=== PATIENT | female | born 1975 ===

== ENCOUNTER → 2020-08-31 08:15 | Outpatient (BNVA) | payer MEDICAID, SELFPAY | PROVIDERS: Visit Provider Internal Medicine Endocrinology, Diabetes & Metabolism | DX: E10.21 Type 1 diabetes mellitus with diabetic nephropathy (principal); E78.5 Hyperlipidemia, unspecified; E55.9 Vitamin D deficiency, unspecified | CPT/HCPCS: 82947; 99212 ==

== ENCOUNTER 2020-08-31 08:50 | Outpatient (REF) | payer MEDICAID, SELFPAY ==
[2020-08-31 10:44] LABS: Microalbum/Creatinine Ratio Ur 6.5 ug/mg cr
== END 2020-08-31 08:51 | disposition home or self-care (01) ==
LOC: HO.10HDL 08:50
PROVIDERS: Visit Provider Internal Medicine Endocrinology, Diabetes & Metabolism
DX: E10.9 Type 1 diabetes mellitus without complications (principal)
CPT/HCPCS: 82043

== ENCOUNTER 2021-02-23 09:36 | Outpatient (REF) | payer MEDICAID, SELFPAY ==
--- NOTE | ~2021-02-23 | MM_ITS ---
EXAMINATION: MM SCREENING DIGITAL BREAST TOMOSYNTHESIS, BILATERAL CLINICAL INFORMATION: Screening. Asymptomatic. The lifetime risk of breast cancer based on the Tyrer-Cuzick Model is 7%. COMPARISON: Mammography: 01/27/2019, 01/25/2019 (baseline) TECHNIQUE: Digital breast tomosynthesis is performed in both the craniocaudal and mediolateral oblique views along with computer-aided detection (CAD). Synthesized 2D images are generated from the tomosynthesis. Additional exaggerated left CC view is provided. FINDINGS: There are scattered areas of fibroglandular density (ACR BI-RADS breast composition Category b). There are no significant masses, abnormal calcifications, or other abnormalities. There is no interval mass or architectural abnormality or abnormal calcifications. The skin contours are unremarkable. No significant changes. MM/MM tomosynthesis screening BI IMPRESSION: No mammographic evidence of malignancy. ASSESSMENT: BI-RADS 1: Negative RECOMMENDATION: Routine annual mammography screening. This patient's information was entered into a reminder system with a target due date for their next mammogram.
== END 2021-02-23 09:37 | disposition home or self-care (01) ==
LOC: HO.MAMMO 09:36
PROVIDERS: Visit Provider Family Medicine
DX: Z12.31 Encounter for screening mammogram for malignant neoplasm of breast (principal)
CPT/HCPCS: 77063; 77067

== ENCOUNTER 2021-02-27 17:09 | Emergency (ER) | payer MEDICAID, SELFPAY ==
--- NOTE | 2021-02-27 | ECG_ITS ---
Test Reason : HYPERTENTION Blood Pressure : / mmHG Vent. Rate : 093 BPM Atrial Rate : 093 BPM P-R Int : 126 ms QRS Dur : 072 ms QT Int : 378 ms P-R-T Axes : 071 042 036 degrees QTc Int : 469 ms Normal sinus rhythm Biatrial enlargement Abnormal ECG When compared to the previous EKG of No significant changes seen Referred By: Jaqueline Minor Electronically Signed By:LARRY PIRES MD
--- NOTE | ~2021-02-27 | XR_ITS ---
EXAMINATION: XR CHEST CLINICAL INFORMATION: Chest pain COMPARISON: 05/12/2018 TECHNIQUE: 2 views of the chest were obtained. FINDINGS: No significant abnormality is noted involving the heart, lungs, mediastinum, bony thorax or soft tissues. XR/XR chest 2V IMPRESSION: Unremarkable examination.
[2021-02-27 17:52] VITALS: BP 154/101; PULSE 93; RESP 16; TEMP 36.2; O2SAT 99; BMI 25.0
[2021-02-27 18:23] LABS: MANUAL DIFF FLAG NO
[2021-02-27 18:24] LABS: Basophils Absolute Auto 0.1 X10*3/uL (0.0-0.2); Basophils Percent Auto 0.7 % (0-2); Eosinophils Absolute Auto 0.2 X10*3/uL (0.0-0.4); Eosinophils Percent Auto 1.7 % (0-4); Hematocrit 37.6 % (37-47); Imm Gran Abs Auto 0.03 X10*3/uL (0.00-0.03); Imm Gran Pct Auto 0.2 % (0.0-0.4); Lymphocytes Absolute Auto 3.3 X10*3/uL (1.2-4.9); Lymphocytes Percent Auto 25.1 % (20-40); Mean Corpuscular HGB Conc 34.6 g/dl (31.0-35.0); Mean Corpuscular Hemoglobin 31.4 pg (27.0-33.0); Mean Corpuscular Volume 90.8 fL (80-98); Mean Platelet Volume 10.1 fL (9.4-12.3); Monocytes Absolute Auto 0.6 X10*3/uL (0.1-1.2); Monocytes Percent Auto 4.8 % (2-11); Neutrophils Absolute Auto 8.8 X10*3/uL (2.0-8.3); Neutrophils Percent Auto 67.5 % (45-73); Platelet Count 317 X10*3/uL (160-400); Red Blood Count 4.14 X10*6/uL (4.20-5.50); Red Cell Distribution Width 11.8 % (11.0-16.0)
[2021-02-27 18:42] LABS: Anion Gap 15 (12-20); Blood Urea Nitrogen 12 mg/dL (9-16); Calcium 9.6 mg/dL (8.4-10.2); Carbon Dioxide 21 mmol/L (22-29); Chloride 106 mmol/L (96-108); Estimated Glomerular Filt Rate > 60; Glucose Random 121 mg/dL (60-115); Potassium 3.6 mmol/L (3.3-5.1); Sodium 138 mmol/L (135-145)
[2021-02-27 18:52] LABS: Troponin-I High Sensitivity 18.5 ng/L (<3.5-17.0)
[2021-02-27 20:00] VITALS: BP 139/88; PULSE 83; RESP 16; TEMP 37; O2SAT 99
--- NOTE | 2021-02-27 20:06 | ED.GENADULT ---
HPI - General Adult General Chief complaint: General Medical Stated complaint: HIGH BP Time Seen by Provider: 02/27/21 21:20 Source: patient Mode of arrival: ambulatory Limitations: language barrier History of Present Illness HPI narrative: 45-year-old female with past medical history of type 2 diabetes, dyslipidemia, hypertension, presents with elevated blood pressure and chest pain. Patient states that she works out every day, occasionally smokes cigarettes, but does not participate in any other illicit drugs. She states the pain is substernal, does not radiate and is not associated with diaphoresis, dizziness, or weakness. Onset (ago): day(s) Location: chest Radiation: non-radiation Severity: moderate Severity scale (1-10): 5 Quality: aching Pain Consistency: constant Relieving factors: none Exacerbating factors: movement Associated symptoms: denies other symptoms Treatments prior to arrival: none Related Data Previous Rx's Medication Instructions Recorded atorvastatin 10 mg tablet 10 mg PO DAILY 90 Days #90 tab 08/31/20 cholecalciferol (vitamin D3) 50 50 mcg PO DAILY 90 Days #90 cap 08/31/20 mcg (2,000 unit) capsule lisinopril 2.5 mg tablet 2.5 mg PO DAILY 30 Days #30 tab 11/29/20 insulin glargine U-300 conc 300 8 unit SUBCUT BEDTIME 30 Days #1.5 02/05/21 unit/mL (1.5 mL) subcutaneous pen ml ibuprofen 600 mg PO Q6H #60 tab 02/27/21 Allergies Allergy/AdvReac Type Severity Reaction Status Date / Time No Known Allergies Allergy Unverified 07/19/20 16:50 [No Known Allergies*] Review of Systems Review of Systems: Constitutional: No Weight loss, No Fever, No Chills, No Night Sweats, No Fatigue, No Malaise ENT/Mouth: No Hearing loss, No Ear Pain, No Nasal Congestion, No Sinus Pain, No Hoarseness, No sore throat, No Rhinorrhea, No Swallowing Difficulty Eyes: No Eye Pain, No Swelling, No Redness, No Foreign Body, No Discharge, No Vision Changes Cardiovascular: Positive Chest Pain, no SOB, no Dyspnea on Exertion, No Orthopnea, No Edema, No Palpitations Respiratory: No Cough, No Sputum, No Wheezing, No Smoke Exposure, No Dyspnea Gastrointestinal: No Nausea, No Vomiting, No Diarrhea, No abdominal Pain, No Hematochezia, No Melena Genitourinary: No irregular bleeding, No Dysuria, No Urinary Frequency, No Hematuria, No Urinary Incontinence, No Urgency, No Flank Pain, No Urinary Flow Changes, No Hesitancy Musculoskeletal: No joint pain, No Myalgias, No Joint Swelling Skin: No Skin Lesions, No rash Neuro: No Weakness, No Numbness, No Paresthesias, No Loss of Consciousness, No Dizziness, No Headache Psych: No Anxiety/Panic, No Depression, No SI/HI/AH/VH Heme/Lymph: No Bruising, No Bleeding,No Lymphadenopathy Endocrine: No Polyuria, No Polydipsia, No Temperature Intolerance Yes all other systems are reviewed and are negative [facility] Past Medical History Medical History Dyslipidemia Ketosis-prone diabetes mellitus Microalbuminuria due to type 2 diabetes mellitus Vitamin D deficiency Surgical History Hx of section Family History Family History Father Diabetes mellitus Mother No problems noted. Social History Social History Alcohol intake: never Smoking Status: Current every day smoker Smoked in Last 30 Days: Yes Use of substances other than those prescribed or required for medical reasons: No Advance Directives: No Advance Directives Information Provided: Yes Physical Exam Vital Signs: Vital Signs: Last Vital Signs Temp 98.6 F 02/27/21 21:59 Pulse 74 02/27/21 21:59 Resp 16 02/27/21 21:59 BP 132/72 02/27/21 21:59 Pulse Ox 99 02/27/21 21:59 Body Mass Index 25.0 Appearance: Alert. Oriented X3. No acute distress. Head: Normal external exam. Normocephalic. Atraumatic. No Bird signs noted. No raccoon eyes noted Eyes: PERRLA. EOMI. Conjunctiva and sclera normal. Eyelids normal. ENT: TM's Normal. Pharynx normal. Uvula midline. Moist mucous membranes. No trismus noted. No drooling noted. No muffled voice noted. Neck: Normal inspection. Neck supple. No adenopathy. Thyroid Normal. CVS: Normal heart rate and rhythm. Heart sound normal. No murmurs noted. Pulses equal to all extremities. Respiratory: No respiratory distress. Painless inspiration. Breath sounds normal. No wheezes/rales/rhonchi noted. Chest nontender. No accessory muscle usage noted or decreased air movement noted. Abdomen: Soft and nontender. Bowel sounds normal in all 4 quadrants. No distention noted. No organomegaly noted. No visible injury noted. Back: No CVA tenderness. Full range of motion noted. Skin: Skin warm and dry. Normal skin color. Normal skin turgor. No rashes/lesions/lacerations noted. Extremities: No lower extremity edema. Extremities exhibit normal range of motion. Extremities nontender. Neuro: cranial nerves 2-12 intact, no focal neural deficits, strength 5/5 to all extremities, No motor deficit. No sensory deficit. Reflexes normal. NIH Stroke Scale Internal: Initial- Upon Arrival Level of Consciousness: Alert Level of Consciousness Questions: Answers both questions correctly Level of Consciousness Commands: Performs both tasks correctly Best Gaze: Normal Visual: No visual loss Facial Palsy: Normal Motor Arm (Right): No drift Motor Arm (Left): No drift Motor Leg (Right): No drift Motor Leg (Left): No drift Limb Ataxia: Absent Sensory: Normal Best Language: No aphasia Dysarthia: Normal Extinction and Inattention: No abnormality Score: 0 Course Course Course Narrative: 45-year-old female presents with hypertension and chest pain. Rule out ACS. Patient does lift weights on a daily basis. EKG shows biatrial enlargement, troponins elevated at 18.5 x 2, highly unlikely that this is ACS at this time. Chest x-ray is negative. Will have patient follow-up as an outpatient for echo with Cardiology, follow up with primary care physician to adjust blood pressure medications. Medical Decision Making Differential Diagnosis Differential Diagnosis: ACS, HTN, costochondritis, pericarditis Medical Records Medical records reviewed: Yes I reviewed the patient's medical records. Lab Data Lab results reviewed: Yes I reviewed the patient's lab results. Result diagrams: 02/27/21 18:19 02/27/21 18:19 Labs: Lab Results 02/27/21 02/27/21 02/27/21 Range/Units 18:19 18:19 18:19 WBC 13.0 H (4.8-10.8) X10*3/uL RBC 4.14 L (4.20-5.50) X10*6/uL Hgb 13.0 (12.0-16.0) g/dl Hct 37.6 (37-47) % MCV 90.8 (80-98) fL MCH 31.4 (27.0-33.0) pg MCHC 34.6 (31.0-35.0) g/dl RDW 11.8 (11.0-16.0) % Plt Count 317 (160-400) X10*3/uL MPV 10.1 (9.4-12.3) fL Immature Gran % (Auto) 0.2 (0.0-0.4) % Neut % (Auto) 67.5 (45-73) % Lymph % (Auto) 25.1 (20-40) % [place] % (Auto) 4.8 (2-11) % Eos % (Auto) 1.7 (0-4) % Baso % (Auto) 0.7 (0-2) % Lymph # (Auto) 3.3 (1.2-4.9) X10*3/uL [place] # (Auto) 0.6 (0.1-1.2) X10*3/uL Eos # (Auto) 0.2 (0.0-0.4) X10*3/uL Baso # (Auto) 0.1 (0.0-0.2) X10*3/uL Abs Immat Gran (auto) 0.03 (0.00-0.03) X10*3/uL Absolute Neuts (auto) 8.8 H (2.0-8.3) X10*3/uL Absolute Nucleated RBC 0.000 (0.0-0.012) X10*3/uL Nucleated RBC % (auto) 0.0 (0.0-0.2) /100WBC Hold Blue Top SEE NOTE Sodium 138 (135-145) mmol/L Potassium 3.6 (3.3-5.1) mmol/L Chloride 106 (96-108) mmol/L Carbon Dioxide 21 L (22-29) mmol/L Anion Gap 15 (12-20) BUN 12 (9-16) mg/dL Creatinine 0.81 (0.5-1.4) mg/dL Estim Creat Clear Calc 83.0 Estimated GFR > 60 Random Glucose 121 H (60-115) mg/dL Calcium 9.6 (8.4-10.2) mg/dL Troponin I High Sens (<3.5-17.0) ng/L 02/27/21 02/27/21 Range/Units 18:19 20:21 WBC (4.8-10.8) X10*3/uL RBC (4.20-5.50) X10*6/uL Hgb (12.0-16.0) g/dl Hct (37-47) % MCV (80-98) fL MCH (27.0-33.0) pg MCHC (31.0-35.0) g/dl RDW (11.0-16.0) % Plt Count (160-400) X10*3/uL MPV (9.4-12.3) fL Immature Gran % (Auto) (0.0-0.4) % Neut % (Auto) (45-73) % Lymph % (Auto) (20-40) % [place] % (Auto) (2-11) % Eos % (Auto) (0-4) % Baso % (Auto) (0-2) % Lymph # (Auto) (1.2-4.9) X10*3/uL [place] # (Auto) (0.1-1.2) X10*3/uL Eos # (Auto) (0.0-0.4) X10*3/uL Baso # (Auto) (0.0-0.2) X10*3/uL Abs Immat Gran (auto) (0.00-0.03) X10*3/uL Absolute Neuts (auto) (2.0-8.3) X10*3/uL Absolute Nucleated RBC (0.0-0.012) X10*3/uL Nucleated RBC % (auto) (0.0-0.2) /100WBC Hold Blue Top Sodium (135-145) mmol/L Potassium (3.3-5.1) mmol/L Chloride (96-108) mmol/L Carbon Dioxide (22-29) mmol/L Anion Gap (12-20) BUN (9-16) mg/dL Creatinine (0.5-1.4) mg/dL Estim Creat Clear Calc Estimated GFR Random Glucose (60-115) mg/dL Calcium (8.4-10.2) mg/dL Troponin I High Sens 18.5 H 18.5 H (<3.5-17.0) ng/L Imaging Data Chest x-ray: Attestation: I personally reviewed and interpreted this imaging study as follows: Radiologist's impression: EXAMINATION: XR CHEST CLINICAL INFORMATION: Chest pain COMPARISON: 05/12/2018 TECHNIQUE: 2 views of the chest were obtained. FINDINGS: No significant abnormality is noted involving the heart, lungs, mediastinum, bony thorax or soft tissues. XR/XR chest 2V IMPRESSION: Unremarkable examination. ECG Data Attestation: I personally reviewed and interpreted this ECG as follows: Prior ECG tracings: available for review Interpretation: Ventricular rate 93 beats per minute, TX 126, QRS 72, QT 378, QTC 469, normal sinus rhythm, biatrial enlargement, no significant changes from prior EKG Discharge Plan Discharge Clinical Impression: Chest pain, non-cardiac, Elevated troponin level not due myocardial infarction Patient Disposition: Home, Self-Care Instructions: Noncardiac Chest Pain (ED) Additional Instructions: Evaluaste para el dolor tor?cico. Las troponinas, las enzimas card?acas, son ligeramente elevadas elliot no lo suficientemente significativas mason para indicar un evento card?aco. La radiograf?a de t?rax es normal. Levy electrocardiograma muestra la ampliaci?n biatrial. Por favor, michelet un seguimiento con Cardiolog?a mason ambulatorio para ecocardiograma. Levy segunda queja fue presi?n arterial elevada. Por favor, michelet un seguimiento con levy m?dico de atenci?n primaria para manejar favian medicamentos para la presi?n arterial. Por favor tome Motrin 600 mg cada 6 horas mahnaz los pr?ximos 3 d?as. Phillip por elegir gaston departamento de emergencias para levy evaluaci?n. Por favor, michelet un seguimiento con el m?dico de atenci?n primaria seg?n sea necesario. Regrese al servicio de emergencias para cualquier s?ntoma nuevo, preocupante o que empeore. You evaluated for chest pain. Your troponins, cardiac enzymes, are slightly elevated but not significant enough to indicate a cardiac event. Your chest x-ray is normal. Your EKG shows biatrial enlargement. Please follow-up with Cardiology as an outpatient for echocardiogram. Your 2nd complaint was elevated blood pressure. Please follow-up with your primary care physician to manage your blood pressure medications. Please take Motrin 600 mg every 6 hours for the next 3 days. Thank you for choosing this emergency department for evaluation. Please follow-up with primary care physician as needed. Return to the emergency department for any new, concerning, or worsening symptoms. Prescriptions: New ibuprofen 600 mg tablet 600 mg PO Q6H Qty: 60 RF: 0 No Action lisinopril 2.5 mg tablet 2.5 mg PO DAILY 30 Days Qty: 30 RF: 6 insulin glargine U-300 conc [Toujeo SoloStar U-300 Insulin] 300 unit/mL (1.5 mL) insulin pen 8 unit subcut BEDTIME 30 Days Qty: 1.5 RF: 3 atorvastatin 10 mg tablet 10 mg PO DAILY 90 Days Qty: 90 RF: 1 cholecalciferol (vitamin D3) 50 mcg (2,000 unit) capsule 50 mcg PO DAILY 90 Days Qty: 90 RF: 1 Referrals: Fahad Greenberg MD [Physician] - 2 days (Mild elevation of troponin, biatrial enlargement on EKG, may need outpatient echocardiogram) Interventions: ED Discharge Assessment Last Done: 02/27/21 22:00 Discharge Date/Time: 02/27/21 22:01
[2021-02-27 21:07] LABS: Troponin-I High Sensitivity 18.5 ng/L (<3.5-17.0)
[2021-02-27] MEDS: Ketorolac Tromethamine 30 MG/ML VIAL IVPUSH (21:37)
[2021-02-27 21:59] VITALS: BP 132/72; PULSE 74; RESP 16; TEMP 37; O2SAT 99
== END 2021-02-27 22:01 | disposition home or self-care (01) ==
PROVIDERS: Nurse Practitioner Family; Emergency Provider Internal Medicine
DX: R07.89 Other chest pain (principal); R77.8 Other specified abnormalities of plasma proteins; I10 Essential (primary) hypertension; E78.5 Hyperlipidemia, unspecified; E11.9 Type 2 diabetes mellitus without complications; F17.200 Nicotine dependence, unspecified, uncomplicated
CPT/HCPCS: 36415; 71046; 80048; 84484; 85025; 93005; 96374; 99284; J1885

== ENCOUNTER → 2021-03-01 08:07 | Outpatient (BNVA) | payer MEDICAID, SELFPAY | PROVIDERS: Visit Provider Internal Medicine Endocrinology, Diabetes & Metabolism | DX: E11.29 Type 2 diabetes mellitus with other diabetic kidney complication (principal); R80.9 Proteinuria, unspecified; E78.5 Hyperlipidemia, unspecified; E55.9 Vitamin D deficiency, unspecified; I10 Essential (primary) hypertension; Z68.24 Body mass index [BMI] 24.0-24.9, adult; Z79.4 Long term (current) use of insulin; Z71.3 Dietary counseling and surveillance | CPT/HCPCS: 82947; 99212 ==

== ENCOUNTER 2021-03-04 10:29 | Outpatient (REF) | payer MEDICAID, SELFPAY ==
[2021-03-04 14:45] LABS: Alanine Aminotransferase 47 U/L (0-31); Albumin Level 4.3 g/dL (3.5-5.0); Alkaline Phosphatase 59 U/L (39-117); Anion Gap 13 (12-20); Aspartate Amino Transferase 31 U/L (5-31); Bilirubin Total 0.6 mg/dL (0.0-1.0); Blood Urea Nitrogen 12 mg/dL (9-16); Calcium 9.4 mg/dL (8.4-10.2); Carbon Dioxide 23 mmol/L (22-29); Chloride 105 mmol/L (96-108); Cholesterol 179 mg/dL; Estimated Glomerular Filt Rate > 60; Glucose Fasting 112 mg/dL (60-99); HDL Cholesterol 40 mg/dL; LDL Cholesterol Calculated 113 mg/dl; Potassium 3.9 mmol/L (3.3-5.1); Sodium 137 mmol/L (135-145); Total Protein 7.4 g/dL (6.5-8.0); Triglycerides 134 mg/dL
[2021-03-04 15:09] LABS: Vitamin D 25-OH Total 36.9 ng/mL (>30)
[2021-03-04 15:11] LABS: Vitamin B12 616 pg/mL (200-900)
[2021-03-05 06:02] LABS: LDL Cholesterol Direct 118 mg/dL (<100)
[2021-03-05 08:47] LABS: C Peptide 1.34 ng/mL (0.80-3.85)
[2021-03-07 16:52] LABS: Glutamic acid decarboxylase Ab <5 IU/mL (<5)
[2021-03-10 23:47] LABS: Islet Cell Antibody Screen NEGATIVE (NEGATIVE)
[2021-03-15 19:17] LABS: Insulinoma associated 2 aatb <5.4 U/mL (<5.4)
== END 2021-03-04 10:30 | disposition home or self-care (01) ==
LOC: HO.10HDL 10:29
PROVIDERS: Visit Provider Internal Medicine Endocrinology, Diabetes & Metabolism
DX: E10.9 Type 1 diabetes mellitus without complications (principal); E55.9 Vitamin D deficiency, unspecified
CPT/HCPCS: 36415; 80053; 80061; 82306; 82607; 83721; 84681; 86255; 86341

== ENCOUNTER → 2021-03-05 10:29 | Outpatient (BNVA) | payer MEDICAID, SELFPAY | PROVIDERS: PCP Family Medicine; Referring Provider Family Medicine; Visit Provider Nurse Practitioner Family | DX: R07.89 Other chest pain (principal); I10 Essential (primary) hypertension; E78.5 Hyperlipidemia, unspecified; Z82.49 Family history of ischemic heart disease and other diseases of the circulatory system | CPT/HCPCS: 99202 ==

== ENCOUNTER → 2021-03-28 09:01 | Outpatient (REF) | payer MEDICAID, SELFPAY ==
--- NOTE | ~2021-03-28 | NM_ITS ---
EXERCISE MYOCARDIAL PERFUSION STUDY INDICATION: Chest pain, assess for coronary disease and ischemia TECHNIQUE: The patient was brought in for an exercise perfusion study on 03/28/2021. Patient performed exercise as per Jose Francisco protocol and was injected 25 mCi of sestamibi once target heart rate was achieved. Images were obtained using the SPECT gamma camera interlaced with the gating device. Images were obtained in supine position. Resting perfusion study was performed on 03/29/2021. Patient was administered 25 mCi of sestamibi intravenously at rest. Images were then obtained in supine position. Total DLP 82mGy-cm. Images were processed with the software and compared side to side in short axis, horizontal long axis and vertical long axis views. FINDINGS: Raw images were reviewed. The stress perfusion study showed no significant perfusion abnormality. Both uncorrected as well as CT attenuation corrected images were reviewed. The gated study shows normal LV systolic function with calculated LVEF of 69%. LV cavity is normal in size. The gated study shows normal wall thickening and contraction of segments. Resting study shows no significant perfusion abnormality. Gating at rest reveals normal wall motion with visual ejection fraction at > 60%. The findings are consistent with no reversible or fixed perfusion abnormality. NM/NM cardiolite stress test IMPRESSION: 1. Myocardial perfusion imaging study shows normal myocardial perfusion. 2. Gated LVEF is 69% during stress; visually, resting EF normal. 3. Transient ischemic dilatation not present. EKG component of the test reported separately.
--- NOTE | 2021-03-28 09:15 | CA_ITS ---
Acquisition Time: 2021-03-28 09:13:14 Total Exercise Time: 00:09:30 Test Indications: htn, cp Medications: see chart Protocol: LYLA Max HR: 155 BPM 88% of Pred: 176 BPM Max BP: 144/080 mmHG Max Work Load: 10.9 METS Exercise stress test with exercise 9 min 30 sec of Lyla protocol, without anginal symptoms, without arrythmia, with normotensive response to exercise, without EKG changes meeting criteria for ischemia. Nuclear images pending. Test reviewed with Dr Zarate. Referred By: Bernice Rogers Overread By: BERNICE ROGERS
== END ==
LOC: HO.CARD 09:01
PROVIDERS: Visit Provider Nurse Practitioner Family
DX: R07.89 Other chest pain (principal); I10 Essential (primary) hypertension; Z82.49 Family history of ischemic heart disease and other diseases of the circulatory system
CPT/HCPCS: 78452; 93016; 93017; 93018; A9500

== ENCOUNTER → 2021-04-12 08:52 | Outpatient (REF) | payer MEDICAID, SELFPAY ==
--- NOTE | 2021-04-12 08:54 | CA_ITS ---
Transthoracic Echocardiogram Patient (Last, First, Middle): Barb Nguyen, Gender: Female Date of : 1975 Age: 45 Procedure Date: 04/12/2021 Procedure Type: Transthoracic Echocardiogram Location: OP Height: 165.1 cm Weight: 66.68 kg BSA: 1.74 m2 Heart Rate: bpm BP: 130 / 80 mmHg Lunch Counter Manager: JENNIFER Richardson MD: Bernice Rogers PASSENGER RELATIONS REPRESENTATIVE-C History Tutor: Yvan Coleman MD Symptoms: R07.89 - Other chest pain Study Quality: Fair ECG Rhythm: Sinus Conclusions: - 1. Normal LV systolic and diastolic function 2. Normal cardiac valvular Doppler 3. Possibility of PFO present 4. Normal RV systolic pressure 5. No pericardial effusion Findings Left Ventricle Normal left ventricular size, thickness, and systolic function. The visually estimated ejection fraction is between 60-65%. Regional wall motion abnormalities can not be excluded due to suboptimal endocardial definition. Diastolic function is normal for age. Right Ventricle Normal right ventricular cavity size and systolic function. Atria Both atria are normal in size. There is a mobile atrial septum noted. Patent foramen ovale detected using by color Doppler. There is evidence of a patent foramen ovale with left to right shunting. Aortic Valve The aortic valve was not well visualized. There is no aortic valve stenosis. There is no aortic valve regurgitation. Mitral Valve Normal mitral valve structure and function. There is trace mitral valve regurgitation. There is no mitral valve stenosis. Pulmonic Valve The pulmonic valve was not well visualized. Tricuspid Valve Likely normal tricuspid valve structure and function. There is trace tricuspid valve regurgitation. The right ventricular systolic pressure is normal. The right ventricular systolic pressure is 27 mmHg. There is no evidence of pulmonary hypertension. Great Vessels All visible segments of the aorta are normal in size. The pulmonary artery was not well visualized. Venous The inferior vena cava is normal in size and collapses greater than 50% with inspiration. Pericardium/Pleural There is no evidence of pericardial effusion. Prior Study Comparison No prior study available for comparison. Recommendations, Care & Conclusions Recommend contrast study to evaluate intracardiac shunting. Measurements 2D Linear Measurements IVSd: 0.87 0.6-0.9/0.6-1.0 cm LVIDd: 3.91 3.9-5.3/4.2-5.9 cm LVIDs: 2.33 2.0-3.6 cm LVPWd: 0.96 0.7-1.1 cm Ao Root: 2.52 2.1-3.5 cm LV Mass: 134.81 67-162/88-224 g LVOT Diam: 1.85 3.0+(-)1.3 cm Mitral Valve MV Pk E: 0.85 MV PK A: 0.70 MV Decel Time: 301.67 E/A: 1.21 E'Lateral: 0.11 E'Medial: 0.10 Decel [place]: 2.82 Aortic Valve AoV Pk Andrés: 1.82 AoV Mn Andrés: 1.22 AoV VTI: 0.34 AoV Pk Grad: 13.18 Aov Mn Grad: 6.52 LVOT LVOT Pk Andrés: 1.31 LVOT Mn Andrés: 0.80 LVOT VTI: 0.22 LVOT Pk Grad: 6.86 LVOT Mn Grad: 2.99 LVOT Diam: 1.85 LVOT Area: 2.70 Diastolic Function MV Pk E: 0.85 MV Pk A: 0.70 E/A: 1.21 E'Medial: 0.10 E' Laterial: 0.11 Tricuspid Valve TR Pk Andrés: 2.45 TR Pk Grad: 24.02 RA Press: 3.00 RVSP: 27.00 Great Vessels Aorta Ao Root-2D: 2.52 2.0-3.7 cm Ao Asc: 2.59 2.1-3.4 cm Ao Arch: 2.64 Updated in Other Vendor System with Status of Final Yvan Coleman MD electronically signed on 04/13/2021 4:04:48 PM with status of Final
== END ==
LOC: HO.CARD 08:52
PROVIDERS: Visit Provider Nurse Practitioner Family
DX: R07.89 Other chest pain (principal); I10 Essential (primary) hypertension; E78.5 Hyperlipidemia, unspecified; Z82.49 Family history of ischemic heart disease and other diseases of the circulatory system
CPT/HCPCS: 93306

== ENCOUNTER → 2021-05-30 07:32 | Outpatient (REF) | payer MEDICAID, SELFPAY ==
--- NOTE | 2021-05-30 07:36 | CA_ITS ---
Transthoracic Echocardiogram Patient (Last, First, Middle): Barb Nguyen, Gender: Female Date of : 1975 Age: 45 Procedure Date: 05/30/2021 Procedure Type: Transthoracic Echocardiogram Location: OP Height: 165.1 cm Weight: 64.41 kg BSA: 1.71 m2 Heart Rate: bpm Soil Fertility Specialist: KAREEN Referring MD: Bernice Rogers MOVIE THEATER MANAGER-C Symptoms: R93.1 - Abnormal findings on diagnostic imaging of heart ... Conclusions: - Possible small PFO. Findings Atria With both rest and valsalva, there are no bubbles seen in left atrium; however few seen in left ventricle. Possible small PFO. Prior Study Comparison No significant change compared to prior study dated: 04/12/2021. Updated in Other Vendor System with Status of Final Jc Zarate MD electronically signed on 06/01/2021 2:53:02 PM with status of Final
== END ==
LOC: HO.CARD 07:32
PROVIDERS: Visit Provider Nurse Practitioner Family
DX: Q21.1 Atrial septal defect (principal); R93.1 Abnormal findings on diagnostic imaging of heart and coronary circulation
CPT/HCPCS: 93308

== ENCOUNTER → 2021-08-01 07:49 | Outpatient (BNVA) | payer MEDICAID, SELFPAY | PROVIDERS: PCP Family Medicine; Visit Provider Nurse Practitioner Gerontology | DX: E11.29 Type 2 diabetes mellitus with other diabetic kidney complication (principal); R80.9 Proteinuria, unspecified; E78.5 Hyperlipidemia, unspecified; E55.9 Vitamin D deficiency, unspecified; I10 Essential (primary) hypertension | CPT/HCPCS: 82947; 83036; 99212 ==

== ENCOUNTER → 2021-09-12 09:07 | Outpatient (BNVA) | payer MEDICAID, SELFPAY | PROVIDERS: PCP Family Medicine; Referring Provider Family Medicine; Visit Provider Internal Medicine Cardiovascular Disease | DX: R07.89 Other chest pain (principal); Q21.1 Atrial septal defect | CPT/HCPCS: 99212 ==

== ENCOUNTER → 2021-11-14 08:13 | Outpatient (BNVA) | payer MEDICAID, SELFPAY | PROVIDERS: PCP Family Medicine; Visit Provider Registered Nurse Diabetes Educator ==

== ENCOUNTER → 2021-11-28 08:27 | Outpatient (BNVA) | payer MEDICAID, SELFPAY | PROVIDERS: PCP Family Medicine; Visit Provider Nurse Practitioner Gerontology | DX: E11.29 Type 2 diabetes mellitus with other diabetic kidney complication (principal); R80.9 Proteinuria, unspecified; E78.5 Hyperlipidemia, unspecified; E55.9 Vitamin D deficiency, unspecified; I10 Essential (primary) hypertension | CPT/HCPCS: 82947; 83036; 99212 ==

== ENCOUNTER 2022-05-03 19:55 | Emergency (ER) | payer MEDICAID, SELFPAY ==
--- NOTE | ~2022-05-03 | XR_ITS ---
EXAMINATION: XR CHEST CLINICAL INFORMATION: Cough. COMPARISON: 02/27/2021 TECHNIQUE: PA view of the chest FINDINGS: Lungs are clear. No consolidation, pneumothorax, or pleural effusion. Cardiac and mediastinal contours are normal. Pulmonary vasculature is unremarkable. Osseous structures are unremarkable. XR/XR chest 1V IMPRESSION: No acute cardiopulmonary findings
[2022-05-03 20:33] VITALS: BP 135/74; PULSE 99; RESP 19; TEMP 36.4; O2SAT 99; BMI 21.7
[2022-05-03 20:49] LABS: MANUAL DIFF FLAG NO
[2022-05-03 21:02] LABS: Basophils Absolute Auto 0.1 X10*3/uL (0.0-0.2); Basophils Percent Auto 0.8 % (0-2); Eosinophils Absolute Auto 0.8 X10*3/uL (0.0-0.4); Eosinophils Percent Auto 6.3 % (0-4); Hematocrit 33.7 % (37.0-47.0); Hemoglobin 11.7 g/dl (12.0-16.0); Imm Gran Abs Auto 0.03 X10*3/uL (0.00-0.03); Imm Gran Pct Auto 0.2 % (0.0-0.4); Lymphocytes Absolute Auto 4.4 X10*3/uL (1.2-4.9); Lymphocytes Percent Auto 34.2 % (20-40); Mean Corpuscular HGB Conc 34.7 g/dl (31.0-35.0); Mean Corpuscular Hemoglobin 31.4 pg (27.0-33.0); Mean Corpuscular Volume 90.3 fL (80.0-98.0); Mean Platelet Volume 10.7 fL (9.4-12.3); Monocytes Absolute Auto 0.8 X10*3/uL (0.1-1.2); Monocytes Percent Auto 5.9 % (2-11); Neutrophils Absolute Auto 6.7 x10*3/uL (2.0-8.3); Neutrophils Percent Auto 52.6 % (45-73); Platelet Count 265 X10*3/uL (160-400); Red Blood Count 3.73 X10*6/uL (4.20-5.50); Red Cell Distribution Width 11.9 % (11.0-16.0); White Blood Count 12.8 X10*3/uL (4.8-10.8)
[2022-05-03 21:16] LABS: COVID-19 Test Negative (Negative); IDNOW Serial# 16C4AD1C; Influenza A Negative (Negative); Influenza B2 Negative (Negative)
[2022-05-03 21:18] LABS: Alanine Aminotransferase 14 U/L (0-31); Alkaline Phosphatase 79 U/L (39-117); Anion Gap 12 (12-20); Aspartate Amino Transferase 12 U/L (5-31); Bilirubin Total 0.2 mg/dL (0.0-1.0); Blood Urea Nitrogen 19 mg/dL (9-16); Calcium 8.7 mg/dL (8.4-10.2); Carbon Dioxide 20 mmol/L (22-29); Chloride 108 mmol/L (96-108); Creatinine Clr Calc Pharmacy 61.5; Estimated Glomerular Filt Rate 55; Glucose Random 178 mg/dL (60-115); Potassium 3.8 mmol/L (3.3-5.1); Sodium 136 mmol/L (135-145); Total Protein 6.9 g/dL (6.5-8.0)
--- NOTE | 2022-05-04 01:39 | ED.URI ---
HPI - URI/Sore Throat General Chief Complaint: Upper Respiratory Symptoms Stated Complaint: Hard time breathing Time Seen by Provider: 05/04/22 01:37 Source: patient Mode of arrival: ambulatory Limitations: no limitations History of Present Illness HPI Narrative: 46 years old female came in for evaluation of shortness of breath. Patient with known history of asthma just quit smoking 2 months ago, patient was seen by her PCP last week for dry cough and difficulty breathing patient was diagnosed with bronchitis sent home on Z-Bernardo. Patient do not feel significant improvement despite using the antibiotic. Patient declined any recent travel, no lower extremity swelling or tenderness. Related Data Home Medications Medication Instructions Recorded Confirmed lisinopril 10 mg tablet 30 mg PO DAILY 09/12/21 09/12/21 mirtazapine 15 mg tablet 15 mg PO BEDTIME 09/12/21 09/12/21 vitamin B comp and C no.3 15 mg-10 1 cap PO DAILY 09/12/21 09/12/21 mg-50 mg-5 mg-300 mg capsule (B Complex Plus Vitamin C) Previous Rx's Medication Instructions Recorded ibuprofen 600 mg tablet 600 mg PO Q6H #60 tabs 02/27/21 cholecalciferol (vitamin D3) 50 50 mcg PO DAILY 90 days #90 caps 03/01/21 mcg (2,000 unit) capsule atorvastatin 20 mg tablet 20 mg PO BEDTIME 90 days #90 tabs 03/05/21 blood sugar diagnostic (FreeStyle #100 ea 07/11/21 Lite Strips) blood-glucose meter (FreeStyle #1 ea 07/11/21 Maryneal Lite) lancets 28 gauge (FreeStyle #100 ea 07/11/21 Lancets) blood-glucose meter (FreeStyle #1 ea 08/01/21 Maryneal) insulin glargine U-300 conc 300 6 unit (0.02 mL) subcut BEDTIME 30 11/28/21 unit/mL (1.5 mL) subcutaneous pen days #1.5 mL (Toujeo SoloStar U-300 Insulin) dulaglutide 0.75 mg/0.5 mL 0.75 mg (0.5 mL) subcut QWEEK 30 03/03/22 subcutaneous pen injector days #2.5 mL (Trulicity) albuterol sulfate 90 mcg/actuation 1 inh inhalation QID PRN shortness 05/04/22 aerosol inhaler of breath or wheezing #8.5 grams prednisone 20 mg tablet 20 mg PO BID #10 tabs 05/04/22 Allergies Allergy/AdvReac Type Severity Reaction Status Date / Time No Known Allergies Allergy Verified 05/03/22 20:36 [No Known Allergies*] Review of Systems Review of Systems: All other systems are reviewed and are negative Constitutional: Reports as per HPI and Reports no additional constitutional complaints Eyes: Reports as per HPI and Reports no additional eye complaints Reports system reviewed and no additional complaints, except as documented Cardiovascular: Reports as per HPI and Reports no additional cardiovascular complaints Respiratory: Reports as per HPI and Reports no additional respiratory complaints Gastrointestinal: Reports as per HPI and Reports no additional gastrointestinal complaints Genitourinary: Reports no additional female genitourinary complaints Musculoskeletal: Reports no additional musculoskeletal complaints Skin/Breast: Reports system reviewed and no additional complaints, except as docu Psychiatric: Reports no additional psychiatric complaints Endocrine: Reports no additional endocrine complaints Hematologic/Lymphatic: Reports no additional hematologic/lymphatic complaints Allergic/Immunologic: Reports no additional allergic/immunologic complaints Reports system reviewed and no additional complaints, except as documented and Reports Abnormal speech present [facility] Past Medical History Medical History Dyslipidemia Family history of early CAD Hypertension Ketosis-prone diabetes mellitus Microalbuminuria due to type 2 diabetes mellitus Vitamin D deficiency Surgical History Hx of section Family History Family History Father Diabetes mellitus Mother No problems noted. Sister Myocardial infarction Social History Social History Household Members: Children Household Members Other:: son and daughter Alcohol intake: never Patient Tobacco Use Status: Current someday Tobacco user Advance Directives: No Advance Directives Information Provided: No Physical Exam Vital Signs: Vital Signs: Last Vital Signs Temp 97.6 F 05/03/22 20:33 Pulse 99 05/03/22 20:33 Resp 19 05/03/22 20:33 BP 135/74 05/03/22 20:33 Pulse Ox 99 05/03/22 20:33 O2 Del Method 05/03/22 20:33 BMI result Body Mass Index 21.7 Vital signs have been reviewed as appeared to be correct. Blood pressure normal. Heart rate normal. Respiration rate normal. Temperature normal. Oxygen saturation normal. Appearance: Alert. Oriented X3. No acute distress. Head: Normal external exam. Normocephalic. Atraumatic. No Bird signs noted. No raccoon eyes noted Eyes: PERRLA. EOMI. Conjunctiva and sclera normal. Eyelids normal. ENT: TM's Normal. Pharynx normal. Uvula midline. Moist mucous membranes. No trismus noted. No drooling noted. No muffled voice noted. Neck: Normal inspection. Neck supple. FROM. No adenopathy. Thyroid Normal. No meningeal signs. No neck mass noted. CVS: Normal heart rate and rhythm. Heart sound normal. No murmurs noted. Pulses normal throughout. Respiratory: No respiratory distress. Painless inspiration. Breath sounds normal. Bilateral mild diffuse expiratory wheezing. Chest nontender. No accessory muscle usage noted or decreased air movement noted. Abdomen: Soft and nontender. Bowel sounds normal in all 4 quadrants. No distention noted. No organomegaly noted. No visible injury noted. Back: No CVA tenderness. Full range of motion noted. Skin: Skin warm and dry. Normal skin color. Normal skin turgor. No rashes/lesions/lacerations noted. Extremities: No lower extremity edema. Extremities exhibit normal range of motion. Extremities nontender. Neuro: Oriented X 3. Cranial nerve exam: II-XII are grossly intact No motor deficit. No sensory deficit. Reflexes normal. Course Course Course Narrative: Acute bronchitis, will start the patient on bronchodilator and prednisone and to finish the Z-Bernardo prescribed by her PCP. MDM - URI/Sore Throat Lab Data Attestation: I reviewed the patient's lab results. Result diagrams: 05/03/22 20:41 05/03/22 20:41 Labs: Lab Results 05/03/22 05/03/22 05/03/22 Range/Units 20:41 20:41 20:41 WBC 12.8 H (4.8-10.8) X10*3/uL RBC 3.73 L (4.20-5.50) X10*6/uL Hgb 11.7 L (12.0-16.0) g/dl Hct 33.7 L (37.0-47.0) % MCV 90.3 (80.0-98.0) fL MCH 31.4 (27.0-33.0) pg MCHC 34.7 (31.0-35.0) g/dl RDW 11.9 (11.0-16.0) % Plt Count 265 (160-400) X10*3/uL MPV 10.7 (9.4-12.3) fL Immature Gran % (Auto) 0.2 (0.0-0.4) % Neut % (Auto) 52.6 (45-73) % Lymph % (Auto) 34.2 (20-40) % [place] % (Auto) 5.9 (2-11) % Eos % (Auto) 6.3 H (0-4) % Baso % (Auto) 0.8 (0-2) % Lymph # (Auto) 4.4 (1.2-4.9) X10*3/uL [place] # (Auto) 0.8 (0.1-1.2) X10*3/uL Eos # (Auto) 0.8 H (0.0-0.4) X10*3/uL Baso # (Auto) 0.1 (0.0-0.2) X10*3/uL Abs Immat Gran (auto) 0.03 (0.00-0.03) X10*3/uL Absolute Neuts (auto) 6.7 (2.0-8.3) x10*3/uL Absolute Nucleated RBC 0.000 (0.0-0.012) X10*3/uL Nucleated RBC % (auto) 0.0 (0.0-0.2) /100WBC Sodium 136 (135-145) mmol/L Potassium 3.8 (3.3-5.1) mmol/L Chloride 108 (96-108) mmol/L Carbon Dioxide 20 L (22-29) mmol/L Anion Gap 12 (12-20) BUN 19 H (9-16) mg/dL Creatinine 1.08 (0.5-1.4) mg/dL Estim Creat Clear Calc 61.5 Estimated GFR 55 Random Glucose 178 H (60-115) mg/dL Calcium 8.7 D (8.4-10.2) mg/dL Total Bilirubin 0.2 (0.0-1.0) mg/dL AST 12 D (5-31) U/L ALT 14 (0-31) U/L Alkaline Phosphatase 79 D (39-117) U/L Total Protein 6.9 (6.5-8.0) g/dL Albumin 4.0 (3.5-5.0) g/dL COVID-19 (BELEM) (Negative) COVID-19 Clin Com Influenza Type A (JARROD) Negative (Negative) Influenza Type B (JARROD) Negative (Negative) Influenza A & B Note See Note 05/03/22 Range/Units 20:41 WBC (4.8-10.8) X10*3/uL RBC (4.20-5.50) X10*6/uL Hgb (12.0-16.0) g/dl Hct (37.0-47.0) % MCV (80.0-98.0) fL MCH (27.0-33.0) pg MCHC (31.0-35.0) g/dl RDW (11.0-16.0) % Plt Count (160-400) X10*3/uL MPV (9.4-12.3) fL Immature Gran % (Auto) (0.0-0.4) % Neut % (Auto) (45-73) % Lymph % (Auto) (20-40) % [place] % (Auto) (2-11) % Eos % (Auto) (0-4) % Baso % (Auto) (0-2) % Lymph # (Auto) (1.2-4.9) X10*3/uL [place] # (Auto) (0.1-1.2) X10*3/uL Eos # (Auto) (0.0-0.4) X10*3/uL Baso # (Auto) (0.0-0.2) X10*3/uL Abs Immat Gran (auto) (0.00-0.03) X10*3/uL Absolute Neuts (auto) (2.0-8.3) x10*3/uL Absolute Nucleated RBC (0.0-0.012) X10*3/uL Nucleated RBC % (auto) (0.0-0.2) /100WBC Sodium (135-145) mmol/L Potassium (3.3-5.1) mmol/L Chloride (96-108) mmol/L Carbon Dioxide (22-29) mmol/L Anion Gap (12-20) BUN (9-16) mg/dL Creatinine (0.5-1.4) mg/dL Estim Creat Clear Calc Estimated GFR Random Glucose (60-115) mg/dL Calcium (8.4-10.2) mg/dL Total Bilirubin (0.0-1.0) mg/dL AST (5-31) U/L ALT (0-31) U/L Alkaline Phosphatase (39-117) U/L Total Protein (6.5-8.0) g/dL Albumin (3.5-5.0) g/dL COVID-19 (BELEM) Negative (Negative) COVID-19 Clin Com See Note Influenza Type A (JARROD) (Negative) Influenza Type B (JARROD) (Negative) Influenza A & B Note Imaging Data Chest x-ray: Attestation: I personally reviewed and interpreted this imaging study as follows: Radiologist's impression: No acute cardiopulmonary findings. Discharge Plan Discharge Clinical Impression: Bronchitis Patient Disposition: Home, Self-Care Instructions: Acute Bronchitis (ED) Prescriptions: New albuterol sulfate 90 mcg/actuation HFA aerosol inhaler 1 inh inhalation QID PRN (Reason: shortness of breath or wheezing) Qty: 8.5 0RF prednisone 20 mg tablet 20 mg PO BID Qty: 10 0RF No Action atorvastatin 20 mg tablet 20 mg PO BEDTIME 90 Days Qty: 90 3RF (DME) blood-glucose meter [FreeStyle Maryneal Lite] Kit See Rx Instructions .ROUTE .MEDSUPPLY Qty: 1 0RF Rx Instructions: 3x/day (DME) FreeStyle Lite Strips Strip See Rx Instructions .ROUTE .MEDSUPPLY Qty: 100 11RF Rx Instructions: As directed three times a day (DME) lancets [FreeStyle Lancets] 28 gauge misc See Rx Instructions .ROUTE .MEDSUPPLY Qty: 100 11RF Rx Instructions: Three times a day Trulicity 0.75 mg/0.5 mL pen injector 0.75 mg subcut QWEEK 30 Days Qty: 2.5 4RF ibuprofen 600 mg tablet 600 mg PO Q6H Qty: 60 0RF (DME) blood-glucose meter [FreeStyle Maryneal] Kit See Rx Instructions .Route Qty: 1 0RF Rx Instructions: To test bg 3 times a day lisinopril 10 mg tablet 30 mg PO DAILY mirtazapine 15 mg tablet 15 mg PO BEDTIME B Complex Plus Vitamin C 24-92-48-5-300 mg capsule 1 cap PO DAILY Rx Instructions: give with food (meal/snack) cholecalciferol (vitamin D3) 50 mcg (2,000 unit) capsule 50 mcg PO DAILY 90 Days Qty: 90 1RF Toujeo SoloStar U-300 Insulin 300 unit/mL (1.5 mL) insulin pen 6 unit subcut BEDTIME 30 Days Qty: 1.5 7RF Referrals: Danna Dinh MD [Primary Care Provider] - Stand Alone Forms: Work/School Release
[2022-05-04 02:20] VITALS: O2SAT 98
== END 2022-05-04 02:21 | disposition home or self-care (01) ==
PROVIDERS: Emergency Provider Emergency Medicine; PCP Family Medicine
DX: J40 Bronchitis, not specified as acute or chronic (principal); R06.02 Shortness of breath; F17.200 Nicotine dependence, unspecified, uncomplicated; Z20.822 Contact with and (suspected) exposure to COVID-19; Z79.899 Other long term (current) drug therapy; Z71.6 Tobacco abuse counseling
CPT/HCPCS: 71045; 80053; 85025; 87502; 87635; 99283; 99284

== ENCOUNTER → 2022-09-12 08:14 | Outpatient (BNVA) | payer MEDICAID, SELFPAY | PROVIDERS: PCP Family Medicine; Referring Provider Family Medicine; Visit Provider Internal Medicine Cardiovascular Disease | DX: Q21.12 Patent foramen ovale (principal); I10 Essential (primary) hypertension | CPT/HCPCS: 93005; 99212 ==

== ENCOUNTER 2023-01-10 19:29 | Emergency (ER) | payer MEDICAID, SELFPAY ==
[2023-01-10 19:58] VITALS: BP 139/87; PULSE 82; RESP 18; TEMP 36; O2SAT 98; BMI 22.4
--- NOTE | 2023-01-10 20:03 | ED.GENADULT ---
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 Patient reports that she is doing a new exercise 3 days ago. She reports since that time she has had tingling and discomfort in my very lower abdomen. She states it is not quite in her pelvis. She states the discomfort is quite mild, 3/10 but she is concerned because she does not know what it is. She denies any associated nausea vomiting, diarrhea or constipation. Denies any burning with urination, frequent urination, abnormal vaginal bleeding or discharge. <John Paul Ann - Last Filed: 01/10/23 21:45> Related Data Home medications: Home Medications Medication Instructions Recorded Confirmed lisinopril 10 mg tablet 30 mg PO DAILY 09/12/21 09/12/22 mirtazapine 15 mg tablet 15 mg PO BEDTIME 09/12/21 09/12/22 vitamin B comp and C no.3 15 mg-10 1 cap PO DAILY 09/12/21 09/12/22 mg-50 mg-5 mg-300 mg capsule (B Complex Plus Vitamin C) rosuvastatin 10 mg tablet 10 mg PO DAILY 09/12/22 09/12/22 Previous Rx's Medication Instructions Recorded ibuprofen 600 mg tablet 600 mg PO Q6H #60 tabs 02/27/21 cholecalciferol (vitamin D3) 50 50 mcg PO DAILY 90 days #90 caps 03/01/21 mcg (2,000 unit) capsule blood sugar diagnostic (FreeStyle #100 ea 07/11/21 Lite Strips) blood-glucose meter (FreeStyle #1 ea 07/11/21 [place] Lite kit) lancets 28 gauge (FreeStyle #100 ea 07/11/21 Lancets) blood-glucose meter (FreeStyle #1 ea 08/01/21 [place] kit) insulin glargine U-300 conc 300 6 unit (0.02 mL) subcut BEDTIME 30 11/28/21 unit/mL (1.5 mL) subcutaneous pen days #1.5 mL (Toujeo SoloStar U-300 Insulin) albuterol sulfate 90 mcg/actuation 1 inh inhalation QID PRN shortness 05/04/22 aerosol inhaler of breath or wheezing #8.5 grams dulaglutide 0.75 mg/0.5 mL 0.75 mg (0.5 mL) subcut QWEEK 30 07/16/22 subcutaneous pen injector days #2.5 mL (Trulicity) cyclobenzaprine 10 mg tablet 10 mg PO TID PRN muscle spasms #9 01/10/23 tabs <RANDI Núñez - Last Filed: 01/10/23 20:04> Allergies/adverse reactions: Allergies Allergy/AdvReac Type Severity Reaction Status Date / Time No Known Allergies Allergy Verified 01/10/23 19:58 [No Known Allergies*] <RANDI Núñez - Last Filed: 01/10/23 20:04> Review of Systems Constitutional: Constitutional: Reports as per HPI, Denies chills, Denies fatigue, Denies fever(s) and Denies headache(s) <John Paul Ann - Last Filed: 01/10/23 21:45> ENT: Denies headache(s) <John Paul Ann - Last Filed: 01/10/23 21:45> Cardiovascular: Cardiovascular: Denies chest pain and Denies dyspnea <John Paul Ann - Last Filed: 01/10/23 21:45> Respiratory: Respiratory: Denies cough and Denies dyspnea <John Paul Ann - Last Filed: 01/10/23 21:45> Gastrointestinal: Gastrointestinal: Reports abdominal pain, Denies constipation and Denies vomiting <John Paul Ann - Last Filed: 01/10/23 21:45> Genitourinary: Genitourinary: Denies dysuria <John Paul Ann - Last Filed: 01/10/23 21:45> Neurologic: Denies headache(s) and Denies focal weakness <John Paul Ann - Last Filed: 01/10/23 21:45> Endocrine: Endocrine: Denies fatigue <John Paul Ann - Last Filed: 01/10/23 21:45> [facility] Past Medical History Medical History: Medical History (Updated 01/10/23 @ 21:42 by John Paul Ann) Dyslipidemia Family history of early CAD Hypertension Ketosis-prone diabetes mellitus Microalbuminuria due to type 2 diabetes mellitus Vitamin D deficiency <RANDI Núñez - Last Filed: 01/10/23 20:04> Surgical History: Surgical History Hx of section <RANDI Núñez - Last Filed: 01/10/23 20:04> Family History Family History: Family History Father Diabetes mellitus Mother No problems noted. Sister Myocardial infarction <RANDI Núñez - Last Filed: 01/10/23 20:04> Social History Social History: Social History Household Members: Children Household Members Other:: son and daughter Alcohol intake: never Patient Tobacco Use Status: Current someday Tobacco user Advance Directives: No Advance Directives Information Provided: No <RANDI Núñez - Last Filed: 01/10/23 20:04> Physical Exam ED Vital Signs: Vital Signs - 24 hr 01/10/23 19:58 Temperature 96.8 F Pulse Rate 82 Respiratory Rate 18 Blood Pressure 139/87 Pulse Oximetry 98 Oxygen Delivery Method Room Air BMI result Body Mass Index 22.4 <RANDI Núñez - Last Filed: 01/10/23 20:04> Vital Signs - 24 hr 01/10/23 19:58 Temperature 96.8 F Pulse Rate 82 Respiratory Rate 18 Blood Pressure 139/87 Pulse Oximetry 98 Oxygen Delivery Method Room Air BMI result Body Mass Index 22.4 < Last Filed: 01/10/23 21:45> Const General: healthy appearing, comfortable, no acute distress, alert and awake < Last Filed: 01/10/23 21:45> Nutritional Appearance: well nourished < Last Filed: 01/10/23 21:45> Orientation/consciousness: patient oriented x3 < Last Filed: 01/10/23 21:45> HENMT Head: Yes normocephalic and Yes atraumatic < Last Filed: 01/10/23 21:45> Throat: Yes posterior oropharynx normal < Last Filed: 01/10/23 21:45> Eyes Eyelids: Yes eyelids normal < Last Filed: 01/10/23 21:45> Conjunctivae: conjunctivae normal < Last Filed: 01/10/23 21:45> Sclerae: sclerae normal < Last Filed: 01/10/23 21:45> Corneas: corneas normal < Last Filed: 01/10/23 21:45> Pupils: Equal, round and reactive pupils present < Last Filed: 01/10/23 21:45> EOM: EOMs intact bilaterally < Last Filed: 01/10/23 21:45> Neck Neck: Yes full ROM < Last Filed: 01/10/23 21:45> Resp Effort & Inspection: normal respiratory effort, able to speak in complete sentences, no audible wheezes and not labored < Last Filed: 01/10/23 21:45> Auscultation: clear to auscultation bilaterally < Last Filed: 01/10/23 21:45> Cardio Rate: regular rate < Last Filed: 01/10/23 21:45> Rhythm: regular rhythm < Last Filed: 01/10/23 21:45> GI Inspection: No distended <John Paul Ann Last Filed: 01/10/23 21:45> Palpation (GI): Soft to palpation, not firm, nontender, no guarding and not rigid <John Paulemmett Woods Last Filed: 01/10/23 21:45> Auscultation: normoactive bowel sounds <John Paul OShakir - Last Filed: 01/10/23 21:45> Skin General skin exam: no rashes or lesions noted and elasticity normal <John Paul OShakir - Last Filed: 01/10/23 21:45> Neuro General: patient oriented x3 <John Paul Raudel Last Filed: 01/10/23 21:45> Cranial nerves: Yes CN's II-XII intact bilaterally, Yes Equal, round and reactive pupils present and Yes Bilaterally intact EOM present <John Paul [place] - Last Filed: 01/10/23 21:45> Cognition (Neuro): normal cognition <John Paulemmett Woods Last Filed: 01/10/23 21:45> Extrem Other: Moving all extremities well without any obvious deformities <John Paulemmett Woods Last Filed: 01/10/23 21:45> Course Course Course Narrative: RME performed by Zarina Breaux PA-C. Patient is a 47 year old female presenting to the emergency department with abdominal pain. Patient states that she was doing abdominal exercises and the area started to hurt but now it has been 2 days she is having very low abdominal tingling. Labs and UA ordered. Patient placed back in the waiting room pending results and room availability. <RANDI Núñez Last Filed: 01/10/23 20:04> Medical Decision Making Medical Decision Making MDM Narrative: 47 and coronal intravenous push interval presents for evaluation of lower abdominal discomfort started after exercising a few days ago. She states this was the 1st time she tried this exercise. Her abdomen is soft, nondistended, nontender without guarding. No palpable abnormalities. Patient's labs are reviewed and without significant abnormalities, UA is unremarkable, no signs of- care the patient is not . the patient has no back pain at all, no lower extremity weakness, numbness or tingling to suggest cauda equina syndrome. I discussed all this finding with the patient I feel her symptoms are likely related to working out and she simply rest for a couple of more days. I encouraged the patient to Internal week if her symptoms have not resolved for some imaging. Patient is comfortable this plan but did request a muscle relaxer to help the discomfort. I will prescribe her a short course of Flexeril <John Paul Ann - Last Filed: 01/10/23 21:45> Differential Diagnosis Abdominal wall pain Abdominal wall strain UTI Cystitis colitis constipation Menopause <John Paul Marissa - Last Filed: 01/10/23 21:45> Lab Data MDM Lab Attestation statement: I reviewed the patient's lab results. <John Paul Ann - Last Filed: 01/10/23 21:45> Result Diagrams: 01/10/23 03:39 01/10/23 20:22 <RANDI Núñez - Last Filed: 01/10/23 20:04> Labs: Lab Results 01/10/23 01/10/23 01/10/23 Range/Units 03:39 20:22 20:22 WBC 13.6 H (4.8-10.8) X10*3/uL RBC 4.30 (4.20-5.50) X10*6/uL Hgb 13.7 (12.0-16.0) g/dl Hct 39.0 (37.0-47.0) % MCV 90.7 (80.0-98.0) fL MCH 31.9 (27.0-33.0) pg MCHC 35.1 H (31.0-35.0) g/dl RDW 11.7 (11.0-16.0) % Plt Count 310 (160-400) X10*3/uL MPV 11.6 (9.4-12.3) fL Immature Gran % (Auto) 0.4 (0.0-0.4) % Neut % (Auto) 70.3 (45-73) % Lymph % (Auto) 22.9 (20-40) % [place] % (Auto) 4.2 (2-11) % Eos % (Auto) 1.3 (0-4) % Baso % (Auto) 0.9 (0-2) % Lymph # (Auto) 3.1 (1.2-4.9) X10*3/uL [place] # (Auto) 0.6 (0.1-1.2) X10*3/uL Eos # (Auto) 0.2 (0.0-0.4) X10*3/uL Baso # (Auto) 0.1 (0.0-0.2) X10*3/uL Abs Immat Gran (auto) 0.05 H (0.00-0.03) X10*3/uL Absolute Neuts (auto) 9.6 H (2.0-8.3) x10*3/uL Absolute Nucleated RBC 0.000 (0.0-0.012) X10*3/uL Nucleated RBC % (auto) 0.0 (0.0-0.2) /100WBC Sodium 136 (135-145) mmol/L Potassium 3.9 (3.3-5.1) mmol/L Chloride 105 (96-108) mmol/L Carbon Dioxide 22 (22-29) mmol/L Anion Gap 13 (12-20) BUN 13 (9-16) mg/dL Creatinine 0.87 (0.5-1.4) mg/dL Estim Creat Clear Calc 72.7 Estimated GFR > 60 Random Glucose 134 H (60-115) mg/dL Calcium 9.9 D (8.4-10.2) mg/dL Magnesium 1.9 (1.6-2.6) mg/dL Total Bilirubin 0.4 (0.0-1.0) mg/dL AST 14 (5-31) U/L ALT 17 (0-31) U/L Alkaline Phosphatase 85 (39-117) U/L Total Protein 7.7 (6.5-8.0) g/dL Albumin 4.7 (3.5-5.0) g/dL Urine Color Yellow Urine Appearance Clear Urine pH 6.0 (5.0-9.0) Ur Specific [place] <= 1.005 (1.005-1.025) Urine Protein Negative (Neg-Trace) mg/dL Urine Glucose (UA) Negative (Negative) mg/dL Urine Ketones Negative (Negative) mg/dL Urine Blood Negative (Negative) Urine Nitrite Negative (Negative) Ur Leukocyte Esterase Negative (Negative) Urine Test (NEGATIVE) 01/10/23 Range/Units 20:22 WBC (4.8-10.8) X10*3/uL RBC (4.20-5.50) X10*6/uL Hgb (12.0-16.0) g/dl Hct (37.0-47.0) % MCV (80.0-98.0) fL MCH (27.0-33.0) pg MCHC (31.0-35.0) g/dl RDW (11.0-16.0) % Plt Count (160-400) X10*3/uL MPV (9.4-12.3) fL Immature Gran % (Auto) (0.0-0.4) % Neut % (Auto) (45-73) % Lymph % (Auto) (20-40) % [place] % (Auto) (2-11) % Eos % (Auto) (0-4) % Baso % (Auto) (0-2) % Lymph # (Auto) (1.2-4.9) X10*3/uL [place] # (Auto) (0.1-1.2) X10*3/uL Eos # (Auto) (0.0-0.4) X10*3/uL Baso # (Auto) (0.0-0.2) X10*3/uL Abs Immat Gran (auto) (0.00-0.03) X10*3/uL Absolute Neuts (auto) (2.0-8.3) x10*3/uL Absolute Nucleated RBC (0.0-0.012) X10*3/uL Nucleated RBC % (auto) (0.0-0.2) /100WBC Sodium (135-145) mmol/L Potassium (3.3-5.1) mmol/L Chloride (96-108) mmol/L Carbon Dioxide (22-29) mmol/L Anion Gap (12-20) BUN (9-16) mg/dL Creatinine (0.5-1.4) mg/dL Estim Creat Clear Calc Estimated GFR Random Glucose (60-115) mg/dL Calcium (8.4-10.2) mg/dL Magnesium (1.6-2.6) mg/dL Total Bilirubin (0.0-1.0) mg/dL AST (5-31) U/L ALT (0-31) U/L Alkaline Phosphatase (39-117) U/L Total Protein (6.5-8.0) g/dL Albumin (3.5-5.0) g/dL Urine Color Urine Appearance Urine pH (5.0-9.0) Ur Specific [place] (1.005-1.025) Urine Protein (Neg-Trace) mg/dL Urine Glucose (UA) (Negative) mg/dL Urine Ketones (Negative) mg/dL Urine Blood (Negative) Urine Nitrite (Negative) Ur Leukocyte Esterase (Negative) Urine Test NEGATIVE (NEGATIVE) <RANDI Núñez - Last Filed: 01/10/23 20:04> Lab Results 01/10/23 01/10/23 01/10/23 Range/Units 03:39 20:22 20:22 WBC 13.6 H (4.8-10.8) X10*3/uL RBC 4.30 (4.20-5.50) X10*6/uL Hgb 13.7 (12.0-16.0) g/dl Hct 39.0 (37.0-47.0) % MCV 90.7 (80.0-98.0) fL MCH 31.9 (27.0-33.0) pg MCHC 35.1 H (31.0-35.0) g/dl RDW 11.7 (11.0-16.0) % Plt Count 310 (160-400) X10*3/uL MPV 11.6 (9.4-12.3) fL Immature Gran % (Auto) 0.4 (0.0-0.4) % Neut % (Auto) 70.3 (45-73) % Lymph % (Auto) 22.9 (20-40) % [place] % (Auto) 4.2 (2-11) % Eos % (Auto) 1.3 (0-4) % Baso % (Auto) 0.9 (0-2) % Lymph # (Auto) 3.1 (1.2-4.9) X10*3/uL [place] # (Auto) 0.6 (0.1-1.2) X10*3/uL Eos # (Auto) 0.2 (0.0-0.4) X10*3/uL Baso # (Auto) 0.1 (0.0-0.2) X10*3/uL Abs Immat Gran (auto) 0.05 H (0.00-0.03) X10*3/uL Absolute Neuts (auto) 9.6 H (2.0-8.3) x10*3/uL Absolute Nucleated RBC 0.000 (0.0-0.012) X10*3/uL Nucleated RBC % (auto) 0.0 (0.0-0.2) /100WBC Sodium 136 (135-145) mmol/L Potassium 3.9 (3.3-5.1) mmol/L Chloride 105 (96-108) mmol/L Carbon Dioxide 22 (22-29) mmol/L Anion Gap 13 (12-20) BUN 13 (9-16) mg/dL Creatinine 0.87 (0.5-1.4) mg/dL Estim Creat Clear Calc 72.7 Estimated GFR > 60 Random Glucose 134 H (60-115) mg/dL Calcium 9.9 D (8.4-10.2) mg/dL Magnesium 1.9 (1.6-2.6) mg/dL Total Bilirubin 0.4 (0.0-1.0) mg/dL AST 14 (5-31) U/L ALT 17 (0-31) U/L Alkaline Phosphatase 85 (39-117) U/L Total Protein 7.7 (6.5-8.0) g/dL Albumin 4.7 (3.5-5.0) g/dL Urine Color Yellow Urine Appearance Clear Urine pH 6.0 (5.0-9.0) Ur Specific [place] <= 1.005 (1.005-1.025) Urine Protein Negative (Neg-Trace) mg/dL Urine Glucose (UA) Negative (Negative) mg/dL Urine Ketones Negative (Negative) mg/dL Urine Blood Negative (Negative) Urine Nitrite Negative (Negative) Ur Leukocyte Esterase Negative (Negative) Urine Test (NEGATIVE) 01/10/23 Range/Units 20:22 WBC (4.8-10.8) X10*3/uL RBC (4.20-5.50) X10*6/uL Hgb (12.0-16.0) g/dl Hct (37.0-47.0) % MCV (80.0-98.0) fL MCH (27.0-33.0) pg MCHC (31.0-35.0) g/dl RDW (11.0-16.0) % Plt Count (160-400) X10*3/uL MPV (9.4-12.3) fL Immature Gran % (Auto) (0.0-0.4) % Neut % (Auto) (45-73) % Lymph % (Auto) (20-40) % [place] % (Auto) (2-11) % Eos % (Auto) (0-4) % Baso % (Auto) (0-2) % Lymph # (Auto) (1.2-4.9) X10*3/uL [place] # (Auto) (0.1-1.2) X10*3/uL Eos # (Auto) (0.0-0.4) X10*3/uL Baso # (Auto) (0.0-0.2) X10*3/uL Abs Immat Gran (auto) (0.00-0.03) X10*3/uL Absolute Neuts (auto) (2.0-8.3) x10*3/uL Absolute Nucleated RBC (0.0-0.012) X10*3/uL Nucleated RBC % (auto) (0.0-0.2) /100WBC Sodium (135-145) mmol/L Potassium (3.3-5.1) mmol/L Chloride (96-108) mmol/L Carbon Dioxide (22-29) mmol/L Anion Gap (12-20) BUN (9-16) mg/dL Creatinine (0.5-1.4) mg/dL Estim Creat Clear Calc Estimated GFR Random Glucose (60-115) mg/dL Calcium (8.4-10.2) mg/dL Magnesium (1.6-2.6) mg/dL Total Bilirubin (0.0-1.0) mg/dL AST (5-31) U/L ALT (0-31) U/L Alkaline Phosphatase (39-117) U/L Total Protein (6.5-8.0) g/dL Albumin (3.5-5.0) g/dL Urine Color Urine Appearance Urine pH (5.0-9.0) Ur Specific [place] (1.005-1.025) Urine Protein (Neg-Trace) mg/dL Urine Glucose (UA) (Negative) mg/dL Urine Ketones (Negative) mg/dL Urine Blood (Negative) Urine Nitrite (Negative) Ur Leukocyte Esterase (Negative) Urine Test NEGATIVE (NEGATIVE) <John Paul Ann - Last Filed: 01/10/23 21:45> Discharge Plan Discharge Clinical Impression: Abdominal wall strain <RANDI Núñez - Last Filed: 01/10/23 20:04> Patient Disposition: Home, Self-Care <RANDI Núñez - Last Filed: 01/10/23 20:04> Instructions: Muscle Strain (ED) <RANDI Núñez - Last Filed: 01/10/23 20:04> Additional Instructions: your blood work, urine sample emergency department was reassuring. Your physical exam is benign. Her symptoms are likely related to your exercising III days ago. Give it another couple of days of rest. You may take cyclobenzaprine up to 3 times daily as needed to help your symptoms if your symptoms persist beyond a week, return for further evaluation and/or imaging <RANDI Núñez - Last Filed: 01/10/23 20:04> Prescriptions: New cyclobenzaprine 10 mg tablet 10 mg PO TID PRN (Reason: muscle spasms) Qty: 9 0RF No Action (DME) blood-glucose meter [FreeStyle [place] Lite] Kit See Rx Instructions .ROUTE .MEDSUPPLY Qty: 1 0RF Rx Instructions: 3x/day (DME) FreeStyle Lite Strips Strip See Rx Instructions .ROUTE .MEDSUPPLY Qty: 100 11RF Rx Instructions: As directed three times a day (DME) lancets [FreeStyle Lancets] 28 gauge misc See Rx Instructions .ROUTE .MEDSUPPLY Qty: 100 11RF Rx Instructions: Three times a day Trulicity 0.75 mg/0.5 mL pen injector 0.75 mg subcut QWEEK 30 Days Qty: 2.5 4RF ibuprofen 600 mg tablet 600 mg PO Q6H Qty: 60 0RF albuterol sulfate 90 mcg/actuation HFA aerosol inhaler 1 inh inhalation QID PRN (Reason: shortness of breath or wheezing) Qty: 8.5 0RF (DME) blood-glucose meter [FreeStyle [place]] Kit See Rx Instructions .Route Qty: 1 0RF Rx Instructions: To test bg 3 times a day lisinopril 10 mg tablet 30 mg PO DAILY mirtazapine 15 mg tablet 15 mg PO BEDTIME B Complex Plus Vitamin C 22-44-07-5-300 mg capsule 1 cap PO DAILY Rx Instructions: give with food (meal/snack) cholecalciferol (vitamin D3) 50 mcg (2,000 unit) capsule 50 mcg PO DAILY 90 Days Qty: 90 1RF [place] SoloStar U-300 Insulin 300 unit/mL (1.5 mL) insulin pen 6 unit subcut BEDTIME 30 Days Qty: 1.5 7RF rosuvastatin 10 mg tablet 10 mg PO DAILY <RANDI Núñez - Last Filed: 01/10/23 20:04>
[2023-01-10 20:30] LABS: MANUAL DIFF FLAG NO
[2023-01-10 20:34] LABS: Basophils Absolute Auto 0.1 X10*3/uL (0.0-0.2); Basophils Percent Auto 0.9 % (0-2); Eosinophils Absolute Auto 0.2 X10*3/uL (0.0-0.4); Eosinophils Percent Auto 1.3 % (0-4); Hemoglobin 13.7 g/dl (12.0-16.0); Imm Gran Abs Auto 0.05 X10*3/uL (0.00-0.03); Imm Gran Pct Auto 0.4 % (0.0-0.4); Lymphocytes Absolute Auto 3.1 X10*3/uL (1.2-4.9); Lymphocytes Percent Auto 22.9 % (20-40); Mean Corpuscular HGB Conc 35.1 g/dl (31.0-35.0); Mean Corpuscular Hemoglobin 31.9 pg (27.0-33.0); Mean Corpuscular Volume 90.7 fL (80.0-98.0); Mean Platelet Volume 11.6 fL (9.4-12.3); Monocytes Absolute Auto 0.6 X10*3/uL (0.1-1.2); Monocytes Percent Auto 4.2 % (2-11); Neutrophils Absolute Auto 9.6 x10*3/uL (2.0-8.3); Neutrophils Percent Auto 70.3 % (45-73); Platelet Count 310 X10*3/uL (160-400); Red Cell Distribution Width 11.7 % (11.0-16.0); White Blood Count 13.6 X10*3/uL (4.8-10.8)
[2023-01-10 20:52] LABS: Appearance Urine Clear; Color Urine Yellow; Glucose Urine UA Negative (Negative); Leukocyte Esterase Urine Negative (Negative); Nitrite Urine Negative (Negative); Specific Gravity - Urine <= 1.005 (1.005-1.025); Urine Blood Negative (Negative); Urine Ketones Negative (Negative); Urine Protein Negative (Neg-Trace)
[2023-01-10 20:53] LABS: UPreg QC Valid YES; Urine Pregnancy NEGATIVE (NEGATIVE)
[2023-01-10 21:05] LABS: Alanine Aminotransferase 17 U/L (0-31); Albumin Level 4.7 g/dL (3.5-5.0); Alkaline Phosphatase 85 U/L (39-117); Anion Gap 13 (12-20); Aspartate Amino Transferase 14 U/L (5-31); Bilirubin Total 0.4 mg/dL (0.0-1.0); Blood Urea Nitrogen 13 mg/dL (9-16); Calcium 9.9 mg/dL (8.4-10.2); Carbon Dioxide 22 mmol/L (22-29); Chloride 105 mmol/L (96-108); Creatinine Clr Calc Pharmacy 72.7; Estimated Glomerular Filt Rate > 60; Glucose Random 134 mg/dL (60-115); Magnesium 1.9 mg/dL (1.6-2.6); Potassium 3.9 mmol/L (3.3-5.1); Sodium 136 mmol/L (135-145); Total Protein 7.7 g/dL (6.5-8.0)
== END 2023-01-10 21:50 | disposition home or self-care (01) ==
PROVIDERS: Physician Assistant Medical; Emergency Provider Student in an Organized Health Care Education/Training Program; PCP Family Medicine
DX: S39.011A Strain of muscle, fascia and tendon of abdomen, initial encounter (principal); X58.XXXA Exposure to other specified factors, initial encounter; I10 Essential (primary) hypertension; E11.9 Type 2 diabetes mellitus without complications; E78.5 Hyperlipidemia, unspecified; Y93.9 Activity, unspecified; Y92.9 Unspecified place or not applicable; Y99.9 Unspecified external cause status; Z79.84 Long term (current) use of oral hypoglycemic drugs; Z79.899 Other long term (current) drug therapy
CPT/HCPCS: 36415; 80053; 81003; 81025; 83735; 85025; 99282; 99283

== ENCOUNTER 2023-01-23 13:49 | Outpatient (REF) | payer MEDICAID, SELFPAY ==
--- NOTE | ~2023-01-23 | US_ITS ---
EXAMINATION: US PELVIS CLINICAL INFORMATION: Pelvic pain. COMPARISON: None available. TECHNIQUE: Ultrasound of the pelvis is performed using both transabdominal and transvaginal transducers along with Doppler. Transvaginal imaging is performed due to inadequate visualization transabdominally. FINDINGS: UTERUS: The uterus is anteverted and measures 7.2 x 4.0 x 4.4 cm. The double wall endometrial thickness is 7 mm. The uterus is smooth in contour and has normal myometrial echogenicity. No visible fibroid. ADNEXA: Both ovaries are visualized. There is normal color flow to the adnexa. There is no ovarian torsion. There is no pelvic ascites or fluid collection. Right ovary measures 3.0 x 1.3 x 1.4 cm for a volume of 2.9 mL. Left ovary measures 2.3 x 1.5 x 1.8 cm for a volume of 3.3 mL which includes a 1.5 cm benign simple cyst. US/US pelvic and transvaginal IMPRESSION: Negative exam. A cause for the patient's pelvic pain has not been found.
== END 2023-01-23 13:50 | disposition home or self-care (01) ==
LOC: HO.US 13:49
PROVIDERS: PCP Family Medicine; Visit Provider Family Medicine
DX: R10.2 Pelvic and perineal pain (principal)
CPT/HCPCS: 76830; 76856

== ENCOUNTER 2023-08-22 08:04 | Outpatient (REF) | payer MEDICAID, SELFPAY ==
[2023-08-22 08:33] LABS: MANUAL DIFF FLAG NO
[2023-08-22 08:56] LABS: Basophils Absolute Auto 0.1 X10*3/uL (0.0-0.2); Basophils Percent Auto 1.2 % (0-2); Eosinophils Absolute Auto 0.3 X10*3/uL (0.0-0.4); Eosinophils Percent Auto 3.1 % (0-4); Hematocrit 37.7 % (37.0-47.0); Hemoglobin 12.9 g/dl (12.0-16.0); Imm Gran Abs Auto 0.02 X10*3/uL (0.00-0.03); Imm Gran Pct Auto 0.2 % (0.0-0.4); Lymphocytes Absolute Auto 3.3 X10*3/uL (1.2-4.9); Mean Corpuscular HGB Conc 34.2 g/dl (31.0-35.0); Mean Corpuscular Hemoglobin 32.2 pg (27.0-33.0); Mean Platelet Volume 11.2 fL (9.4-12.3); Monocytes Absolute Auto 0.6 X10*3/uL (0.1-1.2); Monocytes Percent Auto 6.6 % (2-11); Neutrophils Absolute Auto 4.9 x10*3/uL (2.0-8.3); Neutrophils Percent Auto 52.9 % (45-73); Platelet Count 303 X10*3/uL (160-400); Red Blood Count 4.01 X10*6/uL (4.20-5.50); Red Cell Distribution Width 11.9 % (11.0-16.0); White Blood Count 9.3 X10*3/uL (4.8-10.8)
[2023-08-22 09:33] LABS: Alanine Aminotransferase 16 U/L (0-31); Albumin Level 4.3 g/dL (3.5-5.0); Alkaline Phosphatase 67 U/L (39-117); Anion Gap 12 (12-20); Aspartate Amino Transferase 15 U/L (5-31); Bilirubin Total 0.7 mg/dL (0.0-1.0); Blood Urea Nitrogen 11 mg/dL (9-16); Calcium 9.2 mg/dL (8.4-10.2); Carbon Dioxide 23 mmol/L (22-29); Chloride 107 mmol/L (96-108); Cholesterol 186 mg/dL (<200); Estimated Glomerular Filt Rate > 60; Glucose Random 103 mg/dL (60-115); HDL Cholesterol 45 mg/dL (>40); LDL Cholesterol Calculated 125 mg/dL (<100); Potassium 4.2 mmol/L (3.3-5.1); Sodium 138 mmol/L (135-145); Total Protein 7.3 g/dL (6.5-8.0); Triglycerides 83 mg/dL (<150)
[2023-08-22 09:44] LABS: Ferritin 30 ng/mL (10-250); Free T4 (Free Thyroxine) 0.94 ng/dL (0.71-1.85); Thyroid Stimulating Hormone 1.37 uIU/mL (0.32-4.0); Vitamin D 25-OH Total 32.8 ng/mL (>30)
[2023-08-24 04:03] LABS: HIV AB/AG Nonreactive (Nonreactive); HIV Num 1 0.05 S/CO (0.00-0.99); ~HepC Num1 0.14 S/CO (0.00-0.79); ~Hepatitis C Antibody Nonreactive (Nonreactive)
== END 2023-08-22 08:05 | disposition home or self-care (01) ==
LOC: HO.LAB 08:04
PROVIDERS: PCP Family Medicine; Visit Provider Family Medicine
DX: Z00.00 Encounter for general adult medical examination without abnormal findings (principal); E55.9 Vitamin D deficiency, unspecified; D64.9 Anemia, unspecified; E10.65 Type 1 diabetes mellitus with hyperglycemia
CPT/HCPCS: 36415; 80053; 80061; 82306; 82728; 84439; 84443; 85025; 86803; 87389

== ENCOUNTER 2024-02-23 10:07 | Outpatient (AMB) | payer MEDICAID, SELFPAY ==
--- NOTE | 2024-02-23 10:16 | MHC.OFFVIS ---
Vital Signs 02/23/24 10:17 Height 5 ft 5 in Weight 136 lb 3.931 oz BMI 22.7 Intake Visit Reasons: pre colonoscopy Intake Note: New patient in office today for colonoscopy screening. CC: Patient denies having any GI symptoms or concerns today. Nurse Emergency Room Required: No Accompanied by: Self / Same As Patient Allergies No Known Allergies [No Known Allergies*] Allergy (Verified 01/10/23 19:58) HPI HPI pre colonoscopy: Details: 48 year old? female with past medical history of PFO, hypertension, dyslipidemia, diabetes is here today for pre colonoscopy screening.? Patient was sent to us by her PCP.? This is her first colonoscopy screening.? Patient denies any gastrointestinal symptoms in the past or at present.? Denies any personal or family history of gastrointestinal disease, colon polyps, or cancer.? Denies history of difficulty with sedation or anesthesia in the past.? Negative for history of sleep apnea.? Denies any history of cardiac, renal, pulmonary, or hepatic disease.?Patient denies any shortness of breath or exertion with or without activity. Patient denies any chest pain.? No history of infectious? diseases like hepatitis A, B, C, HIV or tuberculosis.? Patient is not on any anticoagulation therapy. Patient is diabetic and is on Trulicity. Patient is also taking toujeo 6 units at bedtime. Patient is on lisinopril [facility] Medical History Family history of early CAD Hypertension Vitamin D deficiency Dyslipidemia Microalbuminuria due to type 2 diabetes mellitus Ketosis-prone diabetes mellitus Surgical History Hx of section Family History Father Diabetes mellitus Cancer Mother No problems noted. Sister Myocardial infarction Social History Household Members: Children Household Members Other:: son and daughter Alcohol intake: never Patient Tobacco Use Status: Current someday Tobacco user Review of Systems Const Denies weight gain and Denies weight loss ENT Reports no additional complaints, Denies dysphagia and Denies odynophagia Card Reports no additional complaints Resp Reports no additional complaints GI Denies abdominal pain, Denies belching, Denies melena, Denies bloating, Denies change in bowel habits, Denies dysphagia, Denies excessive flatus, Denies dyspepsia, Denies heartburn, Denies diarrhea, Denies loose stools, Denies nausea, Denies odynophagia and Denies vomiting Musc Reports no additional complaints Neuro Reports no additional complaints Psych Reports no additional complaints Endo Reports no additional complaints Physical Exam Vital Signs: BMI result Body Mass Index 22.7 Const General: healthy appearing, no acute distress and well developed Nutritional Appearance: well nourished Orientation/consciousness: patient oriented x3 Resp Effort & Inspection: normal respiratory effort, able to speak in complete sentences, no tracheal deviation and symmetric chest movement Auscultation: clear to auscultation bilaterally Cardio Rate: regular rate GI Inspection: Yes normal to inspection and No distended Palpation (GI): Soft to palpation, not firm, nontender and No hepatosplenomegaly present Auscultation: normal bowel sounds General: Yes no CVA tenderness Back/Spine/Pelvis Back: no CVA tenderness Skin General skin exam: elasticity normal, turgor normal and dry skin Neuro General: patient oriented x3 Psych Appearance: grossly normal Mental Status: mental status grossly normal Assessment & Plan Assessment & Plan (1) Screen for colon cancer: Code(s): Z12.11 - Encounter for screening for malignant neoplasm of colon Plan Patient denies any GI, cardiac or respiratory symptoms. ?Denies any issues with anesthesia in the past.? Denies any history of sleep apnea.? No history infectious diseases in the past or present.? Not on any anticoagulation therapy.? No family or personal history of colon cancer or polyps.? Patient denies melena, hematochezia, unintentional weight loss or ribbon like stools.? Patient is on Trulicity will stop 1 week before procedure. Patient is also taking Toujeo in the evening. She will take half of the dose 2 nights and 1 night before the procedure. Unsure if patient is on lisinopril or not if so please make sure patient is holding the lisinopril the morning of the procedure. Discussed at length the pre-procedure,? prep, diet & medications as well as what to expect prior, during and after the procedure.?? Stressed the importance of good bowel prep. ?Recommended the use of Vaseline or Calmoseptine OTC & baby wipes with bowel movements to promote comfort.? ?Patient verbalizes understanding and agrees to plan of care.? She was given the opportunity to ask questions and all questions answered.? We will see her after the procedure.? Medications: New bisacodyl (Dulcolax (bisacodyl)) take 4 tabs at noon the day before your colonoscopy 20 mg (4 x 5 mg) PO ONCE 1 day 4 tabs 0RF Z12.11 - Encounter for screening for malignant neoplasm of colon polyethylene glycol 3350 (Miralax) As directed by gastroenterology department at [facility] 238 grams PO ONCE 238 grams 0RF Z12.11 - Encounter for screening for malignant neoplasm of colon Coding Level of Care Code New Pt Level 3 (47813) Diagnoses Screen for colon cancer Z12.11 Time Spent (min) 40 Comment 30 minutes spent with patient and additional 10 minutes spent reviewing her records
[2024-02-23 10:17] VITALS: BMI 22.7
== END 2024-02-23 11:13 | disposition home or self-care (01) ==
PROVIDERS: PCP Family Medicine; Visit Provider Nurse Practitioner Family
DX: Z12.11 Encounter for screening for malignant neoplasm of colon (principal); Z01.818 Encounter for other preprocedural examination
CPT/HCPCS: 99203

== ENCOUNTER → 2024-02-23 10:07 | Outpatient (BNVA) | payer MEDICAID, SELFPAY | PROVIDERS: PCP Family Medicine; Visit Provider Nurse Practitioner Family | DX: Z12.11 Encounter for screening for malignant neoplasm of colon (principal) | CPT/HCPCS: 99212 ==

== ENCOUNTER → 2024-02-24 10:00 | Outpatient (BNV) | payer MEDICAID, SELFPAY | PROVIDERS: PCP Family Medicine; Visit Provider Radiology Diagnostic Radiology | DX: Z12.31 Encounter for screening mammogram for malignant neoplasm of breast (principal) | CPT/HCPCS: 77063; 77067 ==

== ENCOUNTER 2024-02-24 10:01 | Outpatient (REF) | payer MEDICAID, SELFPAY ==
--- NOTE | ~2024-02-24 | MM_ITS ---
EXAMINATION: MM SCREENING DIGITAL BREAST TOMOSYNTHESIS, BILATERAL CLINICAL INFORMATION: Screening. Asymptomatic. COMPARISON: Mammography: 02/23/2021, 01/27/2019, 01/25/2019 (baseline) TECHNIQUE: Digital breast tomosynthesis is performed in both the craniocaudal and mediolateral oblique views along with computer-aided detection (CAD). Synthesized 2D images are generated from the tomosynthesis. FINDINGS: The breasts are heterogeneously dense, which may obscure small masses (ACR BI-RADS breast composition Category c). There are no suspicious masses, suspicious grouped calcifications, or areas of architectural distortion in either breast. The parenchymal pattern is stable from prior exams. No skin or axillary abnormalities. MM/MM tomosynthesis screening BI IMPRESSION: No mammographic evidence of malignancy. ASSESSMENT: BI-RADS BI-RADS 1 - Negative RECOMMENDATION: Routine annual mammography screening. 1 year F/U This examination should not preclude the clinical evaluation of a suspicious palpable abnormality. This patient's information was entered into a reminder system with a target due date for their next mammogram.
== END 2024-02-24 10:02 | disposition home or self-care (01) ==
LOC: HO.MAMMO 10:01
PROVIDERS: PCP Family Medicine; Visit Provider Family Medicine
DX: Z12.31 Encounter for screening mammogram for malignant neoplasm of breast (principal)
CPT/HCPCS: 77063; 77067

== ENCOUNTER 2024-05-25 11:02 | Outpatient (AMB) | payer MEDICAID, SELFPAY ==
--- NOTE | 2024-05-25 11:03 | A.OFFVIS_ITS ---
Vital Signs 05/25/24 11:04 Height 5 ft 5 in Weight 134 lb 7.712 oz BMI 22.4 BP 114/68 Position Sitting Pulse 79 Pulse Source Pulse Oximeter Intake Visit Reasons: DM 1/CONFIRMED Intake Note: New Patient presents today to established treatment for Type 2 Diabetes Mellitus: Most recent Eye Exam: DUE Most recent Podiatry Exam: Does not see a Cigar Packing Examiner Most recent HbA1c: 5.5%, 05/25/2024 Random Glucose- 141 mg/dL, Today Aircraft Launch And Recovery Technician Required: Yes Aircraft Launch And Recovery Technician Language: Exercise Planner Services: Aircraft Launch And Recovery Technician Present Aircraft Launch And Recovery Technician Name: MADDISON Skinner/YARED MORALES Information Interpreted: non-clinical & clinical Accompanied by: Self / Same As Patient Allergies No Known Allergies [No Known Allergies*] Allergy (Verified 05/25/24 11:03) HPI Comments Details: Patient is 48-year-old female with ketosis prone diabetes diagnosed 09/2016 who presents for management of diabetes. She is antibody negative. Patient was last seen 11/28/21 by Marvin ROMEO. Past medical history: Ketosis prone diabetes, HTN, HLD, Vit D deficiency Micro and macrovascular complications: , nephropathy, Diabetes medications: Toujeo 8 units, Trulicity 0.75mg/dl Blood glucose monitoring: reports sugars in good range. Does not have sensor with her. Symptoms reported: no numbness, tingling, cramping in lower extremities Hypoglycemia: none recent Hyperglycemia: denies urinary frequency, nocturia, polydypsia Diet: follows balanced diet Exercise: 1-4 times a week for 2 hours at gym. Director Regulatory Affairs - CDE education: yes in past Cigar Packing Examiner: denies Dental exam:yearly Ophthalmology evaluation: due she will schedule, no retinopathy. [facility] Medical History (Updated 05/25/24 @ 13:32 by Jenniffer Mendoza NP) Type 2 diabetes mellitus Family history of early CAD Hypertension Vitamin D deficiency Dyslipidemia Microalbuminuria due to type 2 diabetes mellitus Ketosis-prone diabetes mellitus Surgical History Hx of section Family History Father Diabetes mellitus Cancer Mother No problems noted. Sister Myocardial infarction Social History Household Members: Children Household Members Other:: son and daughter Alcohol intake: never Patient Tobacco Use Status: Current someday Tobacco user Physical Exam Vital Signs: Last Vital Signs Pulse 79 05/25/24 11:04 BP 114/68 05/25/24 11:04 BMI result Body Mass Index 22.4 Const General: cooperative and healthy appearing Nutritional Appearance: average body habitus Orientation/consciousness: oriented to person Limitations: no limitations Neck Neck: Yes normal visual inspection Thyroid: Thyroid normal Resp Effort & Inspection: normal respiratory effort Cardio Jugular venous distension: no JVD Rate: regular rate Rhythm: regular rhythm Heart sounds: S1 normal heart sound present and S2 normal heart sound present Neuro General: oriented to person Extrem Other: Visual exam of foot performed. No ulcerations or open lesions. mild onchomycosis bilateral great toes without thickening or elongation, no callouses. Sensation intact to monofilament exam. Vibratory sensation is normal with 128 Hz tuning fork. Results AMB Hemoglobin A1c AMB Hemoglobin A1c 5.5 % Last Edit by MADDISON Skinner on 05/25/24 11:19 Results Reviewed Results Reviewed: Laboratory Last Values Glucose (Clinic) 141 mg/dL (60-115) H 05/25/24 11:10 Hgb A1c (Clinic) 5.5 % (4.0-6.0) 05/25/24 11:18 Assessment & Plan Assessment & Plan (1) Type 2 diabetes mellitus: Code(s): E11.9 - Type 2 diabetes mellitus without complications Category: Medical Plan: well controlled dm will change to fs 3 to r/u hypoglycemia Continue same medication rule of 15's foot care Orders: Orders AMB Hemoglobin A1c Today E11.9 - Type 2 diabetes mellitus without complications Coding Level of Care Code Est Pt Level 4 (30951) Complex EM visit Add On G2211 Diagnoses Type 2 diabetes mellitus E11.9 Time Spent (min) 40 Comment chart review, face to face, doc, teaching
[2024-05-25 11:04] VITALS: BP 114/68; PULSE 79; BMI 22.4
[2024-05-25 11:13] LABS: Glucose, Whole Blood 141 mg/dL (60-115)
== END 2024-05-25 11:43 | disposition home or self-care (01) ==
PROVIDERS: PCP Family Medicine; Visit Provider Nurse Practitioner Adult Health
DX: E11.9 Type 2 diabetes mellitus without complications (principal)
CPT/HCPCS: 99214

== ENCOUNTER → 2024-05-25 11:02 | Outpatient (BNVA) | payer MEDICAID, SELFPAY | PROVIDERS: PCP Family Medicine; Visit Provider Nurse Practitioner Adult Health | DX: E11.9 Type 2 diabetes mellitus without complications (principal) | CPT/HCPCS: 82947; 83036; 99212 ==

== ENCOUNTER 2024-06-29 10:45 | Outpatient (AMB) | payer MEDICAID, SELFPAY ==
--- NOTE | 2024-06-29 10:46 | A.OFFVIS_ITS ---
Vital Signs 06/29/24 10:49 Height 5 ft 5 in Weight 136 lb 10.986 oz BMI 22.7 BP 112/78 Blood Pressure Location Rt brachial Position Sitting Pulse 75 Pulse Source Pulse Oximeter Intake Visit Reasons: DM 1/CONFIRMED Intake Note: Patient presents today for a follow-up on Type 2 Diabetes Mellitus: Most recent Eye Exam: Has a coming up appt soon Most recent Podiatry Exam: Does not see a Tab Machine Operator Most recent HbA1c: 5.5%, 05/25/2024 Random Glucose- 102mg/dL, Today Slot Service Specialist Required: Yes Slot Service Specialist Language: Director Global Intelligence Services: Slot Service Specialist Present Slot Service Specialist Name: MADDISON Skinner/YARED MORALES Information Interpreted: non-clinical & clinical Accompanied by: Self / Same As Patient Allergies No Known Allergies [No Known Allergies*] Allergy (Verified 06/29/24 10:47) HPI Comments Details: Patient is 48-year-old female with ketosis prone diabetes diagnosed 09/2016 who presents for management of diabetes. She is antibody negative. Patient was last seen 11/28/21 by Endo POLE SHAVER. Past medical history: Ketosis prone diabetes, HTN, HLD, Vit D deficiency Micro and macrovascular complications: h/o nephropathy, Diabetes medications: Toujeo 6 units, Trulicity 0.75mg/dl Blood glucose monitoring: reports sugars in good range. She will be changing from freestyle to 2 freestyle 3. At present she is using fingerstick blood sugar morning and lunch readings are in the 90s later in the day and 150s Symptoms reported: no numbness, tingling, cramping in lower extremities Hypoglycemia: none recent Hyperglycemia: denies urinary frequency, nocturia, polydypsia She is on a statin most recent LDL earlier in the year was 122. Diet: follows balanced diet Exercise: 1-4 times a week for 2 hours at gym. Incubator Tender - CDE education: yes in past Tab Machine Operator: denies does self care stopped going to Induction Manager as she dev discoloration of her great toe Dental exam:yearly Ophthalmology evaluation: scheduled for later this year, no retinopathy. [facility] Medical History Type 2 diabetes mellitus Family history of early CAD Hypertension Vitamin D deficiency Dyslipidemia Microalbuminuria due to type 2 diabetes mellitus Ketosis-prone diabetes mellitus Surgical History Hx of section Family History Father Diabetes mellitus Cancer Mother No problems noted. Sister Myocardial infarction Social History Household Members: Children Household Members Other:: son and daughter Alcohol intake: never Patient Tobacco Use Status: Current someday Tobacco user Physical Exam Vital Signs: Last Vital Signs Pulse 75 06/29/24 10:49 BP 112/78 06/29/24 10:49 BMI result Body Mass Index 22.7 Const Other: Absence of Cushingoid features. Absence of acromegalic features. Neck exam reveals nl size thyroid about 15 gms. No thyroid nodules palpable.Heart S1 S2, Reg R/R. No M/R G. Skin exam reveals absence of vitiligo or acanthosis nigricans. Extrem Other: Visual exam of foot performed. No ulcerations or open lesions. + onchomycosis right great toenail mild discoloration, no interdigit maceration or fissuring, no callouses. Sensation intact . Results Reviewed Results Reviewed: Laboratory Last Values Glucose (Clinic) 102 mg/dL (60-115) 06/29/24 10:51 Laboratory Tests 08/31/20 08/22/23 05/25/24 08:38 08:32 11:18 Potassium 4.2 Creatinine 0.80 Estimated GFR > 60 Hgb A1c (Clinic) 5.5 Triglycerides 83 Cholesterol 186 HDL Cholesterol 45 25-OH Vitamin D Total 32.8 TSH 1.37 Urine Creatinine 288.06 Urine Microalbumin 19.0 Microalb/Creat Ratio 6.5 Assessment & Plan Assessment & Plan (1) Type 2 diabetes mellitus: Code(s): E11.9 - Type 2 diabetes mellitus without complications Category: Medical Plan: 48-year-old with type 2 diabetes on Toujeo 6 units and Trulicity 0.75 weekly with the excellent diabetic control. She will be changing to a freestyle Macey 3 for which she will return to the office with the Myriam DALTON for training. I will see her back in 6 months and she will have labs done this fall. Could consider titrating the Toujeo further and perhaps stopping based on freestyle Macey 3 readings. Orders: Orders Lipid Panel 1 Month E11.9 - Type 2 diabetes mellitus without complications Complete Blood Count no Diff 1 Month E11.9 - Type 2 diabetes mellitus without complications Basic Metabolic Panel 1 Month E11.9 - Type 2 diabetes mellitus without complications Microalbumin, Random (w Creat) 1 Month E11.9 - Type 2 diabetes mellitus without complications Creatinine Urine 1 Month E11.9 - Type 2 diabetes mellitus without complications Coding Level of Care Code Est Pt Level 4 (46524) Complex EM visit Add On G2211 Diagnoses Type 2 diabetes mellitus E11.9 Time Spent (min) 30 Comment Time spent reviewing labs/provider notes, face to face, chart doc
[2024-06-29 10:49] VITALS: BP 112/78; PULSE 75; BMI 22.7
[2024-06-29 10:58] LABS: Glucose, Whole Blood 102 mg/dL (60-115)
== END 2024-06-29 11:40 | disposition home or self-care (01) ==
PROVIDERS: PCP Family Medicine; Visit Provider Nurse Practitioner Adult Health
DX: E11.9 Type 2 diabetes mellitus without complications (principal)
CPT/HCPCS: 99214

== ENCOUNTER → 2024-06-29 10:45 | Outpatient (BNVA) | payer MEDICAID, SELFPAY | PROVIDERS: PCP Family Medicine; Visit Provider Nurse Practitioner Adult Health | DX: E11.9 Type 2 diabetes mellitus without complications (principal); I10 Essential (primary) hypertension; E78.5 Hyperlipidemia, unspecified; E55.9 Vitamin D deficiency, unspecified | CPT/HCPCS: 82947; 99212 ==

== ENCOUNTER 2024-07-20 09:49 | Outpatient (AMB) | payer MEDICAID, SELFPAY ==
--- NOTE | 2024-07-20 10:21 | MHC.AMDMED ---
Intake Intake Visit Reasons: f/u adrenal adenoma/confirmed Neurology Director Required: Yes Neurology Director Language: Syriac Accompanied by: Self / Same As Patient Allergies No Known Allergies [No Known Allergies*] Allergy (Verified 06/29/24 10:47) [facility] Comprehensive Diabetes Asmnt Most Recent Diabetes Results: Hemoglobin A1c 5.4 % 02/02/19 Microalb/Creat Ratio 6.5 ug/mg cr 08/31/20 Cholesterol 186 mg/dL (<200) 08/22/23 HDL Cholesterol 45 mg/dL (>40) 08/22/23 Triglycerides 83 mg/dL (<150) 08/22/23 Creatinine 0.80 mg/dL (0.5-1.4) 08/22/23 Blood Urea Nitrogen 11 mg/dL (9-16) 08/22/23 Sodium 138 mmol/L (135-145) 08/22/23 Potassium 4.2 mmol/L (3.3-5.1) 08/22/23 Chloride 107 mmol/L (96-108) 08/22/23 Carbon Dioxide 23 mmol/L (22-29) 08/22/23 Calcium 9.2 mg/dL (8.4-10.2) 08/22/23 AST 15 U/L (5-31) 08/22/23 ALT 16 U/L (0-31) 08/22/23 Total Protein 7.3 g/dL (6.5-8.0) 08/22/23 Albumin 4.3 g/dL (3.5-5.0) 08/22/23 [facility] Medical History Type 2 diabetes mellitus Family history of early CAD Hypertension Vitamin D deficiency Dyslipidemia Microalbuminuria due to type 2 diabetes mellitus Ketosis-prone diabetes mellitus Surgical History Hx of section Family History Father Diabetes mellitus Cancer Mother No problems noted. Sister Myocardial infarction Social History Household Members: Children Household Members Other:: son and daughter Alcohol intake: never Patient Tobacco Use Status: Current someday Tobacco user Assessment & Plan Assessment & Plan (1) Type 2 diabetes mellitus: Code(s): E11.9 - Type 2 diabetes mellitus without complications Plan: Patient at visit to set up an insert Macey 3 sensors Patient unable to get Macey 3 sensors from [facility] pharmacy, contacted [facility] pharmacy they report that Macey 3 sensors are on back order, they can not give an estimate of when they will receive Macey 3 sensor Patient came to visit with Macey 2 sensor and Macey 3 reader Explained to patient we could not use Macey 2 reader with Macey 2 sensor We downloaded Macey 2 manuela on patient's cellphone Instructed patient sensors water proof you can shower, or swim do not submerge sensor in water for over 30 minutes Is sensor falls off cannot put back in you need to replace sensor, customer service number given to patient for sensor replacement Sensor placed on the back of right arm Patient left visit with sensor in warmup Scan sensor a least 4 times daily Reviewed how to interpret trend arrows Reminded patient that to check finger sticks if symptoms do not match sensor reading. Discussed lag time between finger stick and sensor data.? Instructed patient she should always keep blood glucometer for backup testing if needed Reviewed delay of CGM from fingersticks Reminded pt that if symptoms do not match sensor still needs to check fingersticks. Portions of this note were created using voice recognition software, please excuse any words or phrases that may have been misinterpreted. Patient Instructions: Instrucciones para el paciente: CGM proporciona informaci?n sobre el control de la glucosa en kevin a lo mariya del d?a, incluidas la hiperglucemia y la hipoglucemia. Contin?e controlando la glucosa en kevin seg?n las instrucciones. Siga las pautas de nutrici?n proporcionadas. Informe cualquier molestia de inmediato al proveedor de atenci?n m?dica. Mantente gautam hidratado. Puede ba?arse, ducharse, nadar y hacer ejercicio mientras usa el sensor de glucosa. No sumerja el sensor de glucosa en agua mahnaz m?s de 30 minutos. Retire el sensor para frantz resonancia magn?kathy o frantz tomograf?a computarizada. Evite la m?quina de barb X en los aeropuertos: retire el sensor o solicite la varita Patient instruction: CGM provides information on blood glucose control throughout the day, including hyperglycemia and hypoglycemia. ? Continue to monitor blood glucose as instructed. Follow nutrition guidelines provided. Report any discomfort promptly to health care provider. ?Stay well-hydrated. You can bathe ,shower, swim and exercise while wearing the glucose sensor. Do not submerge glucose sensor in water for more than 30 minutes. Patient will follow-up with marketing sales consultant in 2 weeks Coding Level of Care Code Est Pt Level 1 (71896) Diagnoses Type 2 diabetes mellitus E11.9
== END 2024-07-20 11:26 | disposition home or self-care (01) ==
PROVIDERS: PCP Family Medicine; Visit Provider Registered Nurse Diabetes Educator
DX: E11.9 Type 2 diabetes mellitus without complications (principal)

== ENCOUNTER → 2024-07-20 09:49 | Outpatient (BNVA) | payer MEDICAID, SELFPAY | PROVIDERS: PCP Family Medicine; Visit Provider Registered Nurse Diabetes Educator | DX: E11.9 Type 2 diabetes mellitus without complications (principal) | CPT/HCPCS: 99211 ==

== ENCOUNTER 2024-11-07 09:01 | Outpatient (AMB) | payer MEDICAID, SELFPAY ==
--- NOTE | 2024-11-07 09:19 | A.OFFVIS_ITS ---
Intake Intake Visit Reasons: Macey help Senior Benefits Analyst Required: Yes Senior Benefits Analyst Language: Junior Systems Administrator Services: Senior Benefits Analyst Present Senior Benefits Analyst Name: Sung [facility] [place] Accompanied by: Self / Same As Patient Allergies No Known Allergies [No Known Allergies*] Allergy (Verified 06/29/24 10:47) [facility] Comprehensive Diabetes Asmnt Most Recent Diabetes Results: Cholesterol 186 mg/dL (<200) 08/22/23 HDL Cholesterol 45 mg/dL (>40) 08/22/23 Triglycerides 83 mg/dL (<150) 08/22/23 Creatinine 0.80 mg/dL (0.5-1.4) 08/22/23 Blood Urea Nitrogen 11 mg/dL (9-16) 08/22/23 Sodium 138 mmol/L (135-145) 08/22/23 Potassium 4.2 mmol/L (3.3-5.1) 08/22/23 Chloride 107 mmol/L (96-108) 08/22/23 Carbon Dioxide 23 mmol/L (22-29) 08/22/23 Calcium 9.2 mg/dL (8.4-10.2) 08/22/23 AST 15 U/L (5-31) 08/22/23 ALT 16 U/L (0-31) 08/22/23 Total Protein 7.3 g/dL (6.5-8.0) 08/22/23 Albumin 4.3 g/dL (3.5-5.0) 08/22/23 [facility] Medical History Type 2 diabetes mellitus Family history of early CAD Hypertension Vitamin D deficiency Dyslipidemia Microalbuminuria due to type 2 diabetes mellitus Ketosis-prone diabetes mellitus Surgical History Hx of section Family History Father Diabetes mellitus Cancer Mother No problems noted. Sister Myocardial infarction Social History Household Members: Children Household Members Other:: son and daughter Alcohol intake: never Patient Tobacco Use Status: Current someday Tobacco user Assessment & Plan Assessment & Plan (1) Type 2 diabetes mellitus: Code(s): E11.9 - Type 2 diabetes mellitus without complications Plan: Patient at visit to set up an insert Macey 3, with phone manuela Macey Password:[email or web address] Instructed patient sensors water proof you can shower, or swim do not submerge sensor in water for over 30 minutes Is sensor falls off cannot put back in you need to replace sensor, customer service number given to patient for sensor replacement Sensor placed on the back of Left arm Patient left visit with sensor in warmup Reviewed how to interpret trend arrows Reminded patient that to check finger sticks if symptoms do not match sensor reading. Discussed lag time between finger stick and sensor data.? Instructed patient she should always keep blood glucometer for backup testing if needed Reviewed delay of CGM from fingersticks Reminded pt that if symptoms do not match sensor still needs to check fingersticks. Pt will followup in 2 weeks Portions of this note were created using voice recognition software, please excuse any words or phrases that may have been misinterpreted. Patient Instructions: Instrucciones para el paciente: CGM proporciona informaci?n sobre el control de la glucosa en kevin a lo mariya del d?a, incluidas la hiperglucemia y la hipoglucemia. Contin?e controlando la glucosa en kevin seg?n las instrucciones. Siga las pautas de nutrici?n proporcionadas. Informe cualquier molestia de inmediato al proveedor de atenci?n m?dica. Mantente gautam hidratado. Puede ba?arse, ducharse, nadar y hacer ejercicio mientras usa el sensor de glucosa. No sumerja el sensor de glucosa en agua mahnaz m?s de 30 minutos. Retire el sensor para frantz resonancia magn?kathy o frantz tomograf?a computarizada. Evite la m?quina de barb X en los aeropuertos: retire el sensor o solicite la varita Coding Level of Care Code Est Pt Level 1 (38235) Diagnoses Type 2 diabetes mellitus E11.9
== END 2024-11-07 09:31 | disposition home or self-care (01) ==
PROVIDERS: PCP Family Medicine; Visit Provider Registered Nurse Diabetes Educator
DX: E11.9 Type 2 diabetes mellitus without complications (principal)

== ENCOUNTER → 2024-11-07 09:01 | Outpatient (BNVA) | payer MEDICAID, SELFPAY | PROVIDERS: PCP Family Medicine; Visit Provider Registered Nurse Diabetes Educator | DX: E11.9 Type 2 diabetes mellitus without complications (principal) | CPT/HCPCS: 99211 ==

== ENCOUNTER 2024-11-21 09:22 | Outpatient (AMB) | payer MEDICAID, SELFPAY ==
--- NOTE | 2024-11-21 09:45 | A.OFFVIS_ITS ---
Intake Intake Visit Reasons: 30 min It Service Continuity Supervisor Required: Yes It Service Continuity Supervisor Language: Electronic Equipment Trades Worker Name: [id number] Information Interpreted: non-clinical & clinical Accompanied by: Self / Same As Patient Allergies No Known Allergies [No Known Allergies*] Allergy (Verified 06/29/24 10:47) [facility] Comprehensive Diabetes Asmnt Most Recent Diabetes Results: Hemoglobin A1c 5.4 % 02/02/19 Microalb/Creat Ratio 6.5 ug/mg cr 08/31/20 Cholesterol 186 mg/dL (<200) 08/22/23 HDL Cholesterol 45 mg/dL (>40) 08/22/23 Triglycerides 83 mg/dL (<150) 08/22/23 Creatinine 0.80 mg/dL (0.5-1.4) 08/22/23 Blood Urea Nitrogen 11 mg/dL (9-16) 08/22/23 Sodium 138 mmol/L (135-145) 08/22/23 Potassium 4.2 mmol/L (3.3-5.1) 08/22/23 Chloride 107 mmol/L (96-108) 08/22/23 Carbon Dioxide 23 mmol/L (22-29) 08/22/23 Calcium 9.2 mg/dL (8.4-10.2) 08/22/23 AST 15 U/L (5-31) 08/22/23 ALT 16 U/L (0-31) 08/22/23 Total Protein 7.3 g/dL (6.5-8.0) 08/22/23 Albumin 4.3 g/dL (3.5-5.0) 08/22/23 [facility] Medical History Type 2 diabetes mellitus Family history of early CAD Hypertension Vitamin D deficiency Dyslipidemia Microalbuminuria due to type 2 diabetes mellitus Ketosis-prone diabetes mellitus Surgical History Hx of section Family History Father Diabetes mellitus Cancer Mother No problems noted. Sister Myocardial infarction Social History Household Members: Children Household Members Other:: son and daughter Alcohol intake: never Patient Tobacco Use Status: Current someday Tobacco user Assessment & Plan Assessment & Plan (1) Microalbuminuria due to type 2 diabetes mellitus: Code(s): E11.29 - Type 2 diabetes mellitus with other diabetic kidney complication; R80.9 - Proteinuria, unspecified Plan: Personal Continuous Glucose Monitor: Patients CGM information reviewed, Pt uses Ezetap 3, with phone manuela Sensor data: Hypoglycemia: ? 0% Hyperglycemia:? 4% Time in Range:? 94% Average glucose for the last 6 [id number] mg/dL It appears patient is sensor failed after 6 days. Recommended to patient she contact for replacement sensor Denies any hypoglycemia Overall patient's glucose control is very good Reports she takes Trulicity 0.75 mg weekly Toujeo 6 units daily Patient did not bring sensor to today's visit, reports that she will insert new sensor when she goes home this afternoon Reviewed how to interpret trend arrows Reminded patient that to check finger sticks if symptoms do not match sensor reading. Discussed lag time between finger stick and sensor data.? Portions of this note were created using voice recognition software, please excuse any words or phrases that may have been misinterpreted. Coding Level of Care Code Est Pt Level 1 (36658) Diagnoses Microalbuminuria due to type 2 diabetes mellitus E11.29; R80.9
== END 2024-11-21 10:22 | disposition home or self-care (01) ==
PROVIDERS: PCP Family Medicine; Visit Provider Registered Nurse Diabetes Educator
DX: E11.29 Type 2 diabetes mellitus with other diabetic kidney complication (principal); R80.9 Proteinuria, unspecified

== ENCOUNTER → 2024-11-21 09:22 | Outpatient (BNVA) | payer MEDICAID, SELFPAY | PROVIDERS: PCP Family Medicine; Visit Provider Registered Nurse Diabetes Educator | DX: E11.29 Type 2 diabetes mellitus with other diabetic kidney complication (principal); R80.9 Proteinuria, unspecified | CPT/HCPCS: 99211 ==

== ENCOUNTER 2024-12-30 10:44 | Outpatient (AMB) | payer MEDICAID, SELFPAY ==
--- NOTE | 2024-12-30 08:29 | A.OFFVIS_ITS ---
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 not see a Senior Qa Automation Engineer Most recent HbA1c: 5.8%, 12/30/2024 Random Glucose- 83 mg/dL, Today Battery Assembler Plastic Required: Yes Battery Assembler Plastic Language: Financial Institution President Name: Michelle Information Interpreted: non-clinical & clinical Accompanied by: Self / Same As Patient Allergies No Known Allergies [No Known Allergies*] Allergy (Verified 12/30/24 10:51) Medication List - Last Reconciled 12/30/24 by Jenniffer Mendoza NP albuterol sulfate 90 mcg/actuation 1 inh inhalation QID PRN bisacodyl (Dulcolax (bisacodyl)) 20 mg (4 x 5 mg) PO ONCE 1 day blood sugar diagnostic (FreeStyle Lite Strips) As directed three times a day blood-glucose meter (FreeStyle Diamond Lite kit) 3x/day blood-glucose meter,continuous (FreeStyle Macey 3 Fate) As directed blood-glucose sensor (FreeStyle Macey 3 Sensor device) As directed blood-glucose sensor (FreeStyle Macey 3 Sensor device) As directed cholecalciferol (vitamin D3) 50 mcg PO DAILY 90 days dulaglutide 1.5 mg (0.5 mL) subcut QWEEK 28 days fluticasone propionate 50 mcg/actuation 2 sprays intranasal DAILY ibuprofen 600 mg PO Q6H insulin glargine U-300 conc (Toujeo SoloStar U-300 Insulin) 6 units (0.02 mL) subcut BEDTIME 30 days lancets (FreeStyle Lancets) Three times a day lisinopril 30 mg PO QAM loratadine 10 mg PO DAILY mirtazapine 15 mg PO BEDTIME polyethylene glycol 3350 (Miralax) 238 grams PO ONCE rosuvastatin 20 mg PO QAM vitamin B comp and C no.3 (B Complex Plus Vitamin C) 1 cap PO DAILY HPI Comments Details: Patient is 49-year-old female with ketosis prone diabetes diagnosed 09/2016 who presents for management of diabetes. She is antibody negative. Patient was last seen 06/29/24 after a several year hiatus from endocrine. At that time no medication adjustment was needed and fasting labs and microalbumin were ordered in EHR and have not yet been completed. A1c 12/30/2024 %, 05/25/2025 5.5% Diabetes medications: Toujeo 6 units Trulicity 0.75mg/dl glucose readings are in good control with no lows Denies retinopathy last eye exam 12/26/24 No nephropathy. Due for labs No neuropathy: Symptoms reported: no numbness, tingling, cramping in lower extremities does not see podiatry, self care Hypoglycemia: none recent Hyperglycemia: denies urinary frequency, nocturia, polydypsia She is on a statin most recent LDL 2022 was 122. profile ordered Diet: follows balanced diet Exercise: 1-4 times a week for 2 hours at gym. 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 Sister Myocardial infarction Social History Household Members: Children Household Members Other:: son and daughter Alcohol intake: never Patient Tobacco Use Status: Current someday Tobacco user Physical Exam Vital Signs: Last Vital Signs Pulse 69 12/30/24 10:49 BP 100/60 12/30/24 10:49 Pulse Ox 99 12/30/24 10:49 Oxygen Delivery Method Room Air 12/30/24 10:49 BMI result Body Mass Index 23.8 Const Other: Absence of Cushingoid features. Absence of acromegalic features. Neck exam reveals nl size thyroid about 15 gms. No thyroid nodules palpable. No carotid bruits present. Lungs CTA. Heart S1 S2, Reg R/R. No M/R G. Skin exam reveals absence of vitiligo or acanthosis nigricans. No edema Visual exam of foot performed. No ulcerations or open lesions. No inter digit maceration or fissuring. No onychomycosis, no callouses. Sensation intact to monofilament exam. Vibratory sensation is normal with 128 Hz tuning fork. Results AMB Hemoglobin A1c AMB Hemoglobin A1c 5.8 % Last Edit by MADDISON Skinner on 12/30/24 11:13 Results Reviewed Results Reviewed: Laboratory Last Values Glucose (Clinic) 83 mg/dL (60-115) 12/30/24 11:02 Hgb A1c (Clinic) 5.8 % (4.0-6.0) 12/30/24 10:52 Assessment & Plan Assessment & Plan (1) Type 2 diabetes mellitus: Code(s): E11.9 - Type 2 diabetes mellitus without complications Category: Medical Plan: 49-year-old type 2 diabetic with no known complications and excellent glycemic control. Stop daily Tresiba which is at a low dose and increase Trulicity to 1.5 mg weekly. She was advised that she may develop temporary GI symptoms. If these do not go away she can contact us to reduce her dose back down again and would most likely need low-dose insulin. Chart indicates she has a history of microalbuminuria but I do not see evidence in the chart. Fasting labs and urine were ordered today The patient had an opportunity to ask questions regarding treatment plan. The patient expressed understanding and agreement with the above treatment plan. The patient is aware they should contact our office by phone for worsening glucose readings or for any low blood sugars which may warrant a change in diabetes medication. Compliance is encouraged with medications and any followup testing/consults which may have been ordered. Orders: Orders AMB Hemoglobin A1c Today E11.9 - Type 2 diabetes mellitus without complications Medications: New dulaglutide 1.5 mg (0.5 mL) subcut QWEEK 28 days 2 mL 11RF Discontinued dulaglutide (Trulicity) Discontinued Reason: No Longer Medically Relevant 0.75 mg (0.5 mL) subcut QWEEK 30 days 2.5 mL 4RF E10.9 - Type 1 diabetes mellitus without complications On Hold insulin glargine U-300 conc (Toujeo SoloStar U-300 Insulin) Hold Comment: Doctor's Order 6 units (0.02 mL) subcut BEDTIME 30 days 1.5 mL 2RF E10.9 - Type 1 diabetes mellitus without complications Patient Instructions: Take 15 carb carbohydrate grams to treat a low sugar (3-4 glucose tablets, half a glass of juice or 15 carbohydrate grams of soft candy such as gummie snacks). Recheck your sugar in 15 minutes and re-treat again with 15 carbohydrate grams if low or still with symptoms. Do not drive a car or operate machinery if you do not know what your blood sugar is, if it is low or in excess of 300. The patient was counseled to achieve a target A1C of 7% (154 avg). Fasting blood sugars should be 90-130 in the morning and less than 180 two hours after meals. Reviewed the relationship between poor diabetic control and the development of complications. Check your feet daily looking for any signs of infection, drainage, redness, ulceration and seek medical attention if this occurs. Break in shoes gradually and do not wear open-toed shoes or walk stocking footed or barefooted. Sick day management Coding Level of Care Code Est Pt Level 4 (02773) Complex EM visit Add On G2211 Diagnoses Type 2 diabetes mellitus E11.9 Time Spent (min) 30 Comment Time spent reviewing labs/provider notes, face to face, chart doc
[2024-12-30 10:49] VITALS: BP 100/60; PULSE 69; O2SAT 99; BMI 23.8
[2024-12-30 11:06] LABS: Glucose, Whole Blood 83 mg/dL (60-115)
--- OUTSIDE RECORDS SUMMARY | 2024-12-30 12:18 | XMS_ITS | Encounter Summary ---
Author Organization [employer] Address [address] [facility] [address] [place] [address] Care Team Providers Care Collections Associate Name Role Phone Danna Dinh MD Primary Care Provider [phone] Encounter Details Date Type Department Care Team ([facility] st Contact Info) Description 10/21/2022 Orders Only [facility] MED & PEDS [address] [place], [place] [phone] Danna Dinh MD [address] [place], [place] [phone] Hyperglycemia due to type 1 diabetes mellitus (CMS/HCC) (Primary Dx) Social History Tobacco Use Types Packs/Day Years Used Date Smoking Tobacco: Never Assessed Comments Unknown Sex and Gender Information Value Date Recorded Sex Assigned at Female 09/01/2022 10:16 AM EDT Legal Sex Female 10:16 AM EDT Gender Identity Female 09/01/2022 10:16 AM EDT Sexual Orientation Choose not to disclose 2021 10:16 AM EDT documented as of this encounter Plan of Treatment Not on file documented as of this encounter Visit Diagnoses Diagnosis Hyperglycemia due to type 1 diabetes mellitus (CMS/HCC)- Primary documented in this encounter Care Teams Collections Associate Relationship Specialty Start Date End Date Danna Dinh MD [address] [facility] [place], [place] [phone] PCP - General Family Medicine 12/21/20 documented as of this encounter
--- OUTSIDE RECORDS SUMMARY | 2024-12-30 12:18 | XMS_ITS | Encounter Summary ---
Author Organization [employer] Address [address] [facility] [address] [place] [address] Care Team Providers Care Hand Picker Name Role Phone Danna Dinh MD Primary Care Provider [phone] Reason for Visit * Reason Onset Date Comments Med Refill 04/19/2024 Encounter Details Date Type Department Care Team ([facility] Contact Info) Description 04/19/2024 Telephone [facility] CH[facility] MED & PEDS [address] [place], [place] [phone] Danna Dinh MD [address] [place] [address] Med Refill Social History Tobacco Use Types Packs/Day Years Used Date Smoking Tobacco: Former Cigarettes Passive Smoke Exposure: Never Smokeless Tobacco: Never Alcohol Use Standard Drinks/Week Comments Never 0 (1 standard drink = 0.6 oz pur e alcohol) Depression Answer Date Recorded Patient Health Questionnaire-9 Score 2 11/05/2022 Housing Stability Answer Date Recorded What is your housing situation today? I have an[place]u [place] 01/29/[address] you li ve. Do you have problems with any of the following? None of the above 01/29/2024 Food Insecurity Answer Date Recorded Within the past 12 months, y ou worried that your food would run out before you got money to buy more: Sometimes True 2023 Within the past 12 months,th e food you bought just didn't last and you didn't have enough money to get more: Sometimes True 01/29/2024 Transportation Answer Date Recorded In the past 12 months, has l ack of transportation kept you from medical appts, meetings, work or from getting things needed for daily living? No 01/29/2024 Utilities Answer Date Recorded In the past 12 months, has t he electric, gas, oil or water company threatened to shut off services in your home? No 01/29/2024 Depression Answer Date Recorded Patient Health Questionnaire-2 Score 1 11/05/2022 Comments Unknown Sex and Gender Information Value Date Recorded Sex Assigned at Female 09/01/2022 10:16 AM EDT Legal Sex Female 10:16 AM EDT Gender Identity Female 09/01/2022 10:16 AM EDT Sexual Orientation Choose not to disclose 2021 10:16 AM EDT documented as of this encounter Miscellaneous Notes * Telephone Encounter - Jacqueline Gaines LPN - 04/19/2024 9:10 AM EDT Medication pended to PCP. * Telephone Encounter - Mile Walker - 04/19/2024 9:04 AM EDT TC from pt requesting medication refill. Medications needing refill : lisinopril 30 MG tablet To be sent to: [facility]/pharmacy #[id number] [place] [address] documented in this encounter Plan of Treatment Not on file documented as of this encounter Visit Diagnoses Not on filedocumented in this encounter Additional Health Concerns Assessment Noted Time PHQ-9 Depression Total Score: 2 11/05/19 23 2:50 PM EST documented as of this encounter Care Teams Hand Picker Relationship Specialty Start Date End Date Danna Dinh MD [address] [place] [address] PCP - General Family Medicine 12/21/20 documented as of this encounter
--- OUTSIDE RECORDS SUMMARY | 2024-12-30 12:18 | XMS_ITS | Encounter Summary ---
Author Organization [employer] Address [address] [place] [address] [address] [place] [address] Care Team Providers Care Supervisor Electronics Assembly Name Role Phone Danna Dinh MD Primary Care Provider [phone] Reason for Visit * Reason Onset Date Comments Nurse Triage 05/08/2023 Encounter Details Date Type Department Care Team ([facility] st Contact Info) Description 05/08/2023 Telephone C [facility] MED [facility] PEDS [address] [place], [place] [phone] Danna Dinh MD [address] [place] [address] Nurse Triage Social History Tobacco Use Types Packs/Day Years Used Date Smoking Tobacco: Never Passive Smoke Exposure: Never Smokeless Tobacco: Never Alcohol Use Standard Drinks/Week Comments Never 0 (1 standard drink = 0.6 oz pur e alcohol) Depression Answer Date Recorded Patient Health Questionnaire-9 Score 2 11/05/2022 Depression Answer Date Recorded Patient Health Questionnaire-2 Score 1 11/05/2022 Comments Unknown Sex and Gender Information Value Date Recorded Sex Assigned at Female 09/01/2022 10:16 AM EDT Legal Sex Female 10:16 AM EDT Gender Identity Female 09/01/2022 10:16 AM EDT Sexual Orientation Choose not to disclose 2021 10:16 AM EDT documented as of this encounter Miscellaneous Notes * Telephone Encounter - Bree Donaldson RN - 05/08/2023 10:32 AM EDT Triage call with [facility] [id number] Pt reports a rash which comes this time every year. Pt reports it is a red, smooth rash over bilateral shoulders, arms and chest. Pt also has some rash on left thigh. Rash started last week and continues to be itchy and spreads. Pt is offered apt in [facility] but unable to go at times available. Pt is advised to come to [facility] today and agrees. Home care is reviewed and Pt agrees with dispostion. Insurance is verified as active . Protocol Used: Rash or Redness - Widespread (Adult) Protocol-Based Disposition: See in Office or Video Visit Today or Tomorrow Video visit not offered Positive Triage Question: * Mild widespread rash * All higher-acuity triage questions were negative Care Advice Discussed: * Reassurance and Education - Widespread Rash * Antihistamine Medicines for Moderate to Severe Itching * Antihistamine Medicines - Extra Notes and Warnings * Reducing the Itch - Oatmeal (Aveeno) Bath * Hydrocortisone Cream for Itching * Contagiousness * Reasons To Call Back - Rash becomes purple or blood-colored or blister-like - Fever occurs or severe itching - You become worse * Telephone Encounter - Kathrin Welch - 05/08/2023 10:14 AM EDT Symptom: Rash or Redness - Widespread Outcome: Schedule a same-day appointment or talk to a nurse or provider today Reason: Caller denied all higher acuity questions The caller accepted this outcome Please contact pt at [phone] (Romansh speaker) documented in this encounter Plan of Treatment Not on file documented as of this encounter Visit Diagnoses Not on filedocumented in this encounter Additional Health Concerns Assessment Noted Time PHQ-9 Depression Total Score: 2 11/05/19 23 2:50 PM EST documented as of this encounter Care Teams Supervisor Electronics Assembly Relationship Specialty Start Date End Date Danna Dinh MD [address] [place] [address] PCP - General Family Medicine 12/21/20 documented as of this encounter
--- OUTSIDE RECORDS SUMMARY | 2024-12-30 12:18 | XMS_ITS | Encounter Summary ---
Author Organization [employer] Address [address] [place] [address] Care Team Providers Care Web Production Assistant Name Role Phone Danna Dinh MD Primary Care Provider [phone] Encounter Details Date Type Department Care Team (Latest Contact Info) Description 12/26/2024 Travel Social History Tobacco Use Types Packs/Day Years [...] documented as of this encounter Care Teams Web Production Assistant Relationship Specialty Start Date End Date Danna Dinh MD [address] [place] [address] PCP - General Family Medicine 12/21/20 documented as of this encounter
--- OUTSIDE RECORDS SUMMARY | 2024-12-30 12:18 | XMS_ITS | Clinical Summary ---
Author Organization [employer] Address [address] [place] [address] 7[address] [place] [address] Care Team Providers Care Senior Architect Name Role Phone Danna Dinh MD Primary Care Provider [phone] Allergies No known active allergies Medications loratadine (Claritin) 10 MG tablet Take 1 tablet by mouth 1 (one) time each day. Active fluticasone (Flonase Allergy Relief) 50 MCG/ACT nasal spray Administer 2 sprays into affected nostril(s) 1 (one) time each day. Active albuterol (2.5 MG/3ML) 0.083% nebulizer solution Inhale 3 mL every 4 (four) hours if needed for cough, wheezing or shortness of breath. Active albuterol (ProAir HFA) 108 (90 Base) MCG/ACT inhaler inhale 2 puff by inhalation route every 4 - 6 hours as needed Active Acetaminophen 500 MG capsule Take 1 capsule by mouth every 6 (six) hours. Active B Complex-Biotin -FA (Complex B-50 Prolonged Release) tablet controlled-rel ease take 1 tablet once a day PO Active benzonatate (Tessalon) 100 MG capsule Take 1 capsule by mouth every 8 (eight) hours. Active cholecalcifero l (Vitamin D-3) 25 MCG (1000 UT) tablet Take 1 tablet by mouth in the morning. Active glucose blood (FREESTYLE LITE) test strip 1 each every 4 (four) hours. Active magnesium 200 MG tablet take 1 tablet PO qdaily 022 Active polyvinyl alcohol (Artificial Tears) 1.4 % ophthalmic solution 1 drop in each eye 2 to 3 times a day for dryness Active Flovent HFA 110 MCG/ACT inhaler TAKE 1 PUFF BY MOUTH TWICE A DAY 12 g 5 023 Active norethindrone- ethinyl estradiol (Ortho-Novum , 28,) 1-35 MG-MCG tablet Take 1 tablet by mouth in the morning. 28 tablet 11 023 Active escitalopram (Lexapro) 5 MG tablet Take 10 mg by mouth in the morning. Active ibuprofen 600 MG tablet Take 1 tablet (600 mg) by mouth every 6 (six) hours. 60 tablet Active nicotine (Nicoderm CQ) 14 MG/24HR patch Place 1 patch on the skin 1 (one) time each day at the same time. 180 patch 1 Active Continuous Glucose Pre Planning Advisor (FreeStyle Macey 2 [place]) device Scan sensor every 8 hours 1 each Active Continuous Glucose Sensor (FreeStyle Macey [address]) [facility] [place] 1 sensor every 14 days 2 each Active hydrocortisone 2.5 % cream Apply pea sized amount to skin bid for 1 week 15 g Active GaviLAX 17 GM/SCOOP powder PLEASE SEE ATTACHED FOR DETAILED DIRECTIONS Active [facility] Gentle Laxative 5 MG EC tablet TAKE 4 TABS AT NOON THE DAY BEFORE YOUR COLONOSCOPY Active triamcinolone (Kenalog) 0.5 % ointment Apply topically 2 times daily. 90 g Active mirtazapine (Remeron) 15 MG tablet TAKE 1 TABLET BY MOUTH AT BEDTIME 90 tablet 1 Active rosuvastatin (Crestor) 40 MG tablet TAKE 1 TABLET BY MOUTH EVERY DAY IN THE MORNING 90 tablet 1 024 Active lisinopril 30 MG tabletIndicati ons:Hypertensi on, unspecified type TAKE 1 TABLET (30 MG) BY MOUTH IN THE MORNING 90 tablet 1 Active insulin glargine (Toujeo SoloStar) 300 UNIT/ML injection INJECT 6 UNITS BY SUBCUTANEOUS ROUTE ONCE A DAY IN THE EVENING 3 mL 025 Active Trulicity 0.75 MG/0.5ML solution auto-injector INJECT ONE PEN (=0.75MG) SUBCUTANEOUSLY ONCE A WEEK DIRECTED 025 Active hydrOXYzine HCl (Atarax) 10 MG tablet TAKE 1-2 TABLETS TWICE A DAY NEEDED 025 Active dulaglutide (Trulicity) 0.75 MG/0.5ML solution pen-injectorIn dications:Hype rglycemia due to type 1 diabetes mellitus ([facility]) INJECT ONE PEN (=0.75MG) SUBCUTANEOUSLY ONCE A WEEK DIRECTED 2 mL 5 024 2024 Discontinued Active Problems Problem Noted Date Diagnosed Date Heat rash 04/29/2024 Assessment & Plan (04/29/2024 10:22 AM EDT): Increase potency of steroid, if no improvement consider referral to derm. Recommend to use sunscreen Anxiety 02/18/2024 Assessment & Plan (02/18/2024 11:59 PM EDT): Adjust medication as needed to manage symptoms without excessive side effects. Right-sided chest wall pain 02/18/2024 Assessment & Plan (02/19/2024 12:11 AM EDT): Appears benign, possibly related to physical activity. No intervention required at this time. Nicotine dependence 10/04/2022 Insulin Dependent Diabetes Mellitus 01/11/2018 Assessment & Plan (02/19/2024 12:10 AM EDT): Controlled. She is on insulin and GLP-1 by endocrinology and controlled. At this time will place referral again for endocrinology. I will assist patient in scheduling an appointment for diabetes management. Labs: Glucose, HGB A1C Component Ref Range & Units 1 d ago (02/18/24) 1 d ago (02/18/24) 6 mo ago (08/03/23) 6 mo ago (08/03/23) 7 mo ago (07/24/23) Hemoglobin A1C 4.0 - 6.0 % 5.1 5.3 Assessment & Plan (08/06/2023 9:18 AM EDT): Controlled. Unclear if patient is type 1 or 2, she is both on insulin and GLP-1 by endocrinology and controlled. At this moment will place referral again for endocrinology Assessment & Plan (02/03/2023 3:48 PM EDT): Unclear why cGM was denied x2, patient has episodes of hypoglycemia. Controlled a1c, denies further hypoglycemia episodes. It is unclear if patient is type 1 or type II, following with endocrinology. RTC in 6 months Assessment & Plan (11/05/2022 2:05 PM EST): Reviewed labs, will incr statin from rosuvastatin 10 mg to 20 mg qdaily Continue current regimen of kamala Contacted DME specialist to f/u on request and PA for cGM Will need to followup with patient for information before scheduling next appt Microalbuminuria due to Diabetes Mellitus 2017 Benign hypertension 07/22/2016 Assessment & Plan (08/06/2023 8:54 AM EDT): Controlled. Target < 130/80 mmHg. F/up in 6 months Mild intermittent asthma 07/22/2016 Encounters Date Type Department Care Team Description 12/30/2024 Orders Only GENERIC EXTERNAL DATA DEPARTMENT Provider, Generic External Data 12/26/2024 11:00 AM EST Office Visit 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 [address] [place] [address] Danna Dinh MD 10/31/[address] [facility] [address] [place] [address] Danna Dinh MD 10/12/[address] [facility] [address] [place] [address] Danna Dinh MD Hypertension, unspecified type from Last 3 Months Immunizations Name Administration Dates Next Due Hep B, adult 09/08/2014,04/24/2014,01/27/2014 Influenza Injectable Quadriv alant Preservative Free IIV4 MDCK 07/28/2019 Influenza injectable quadriv alent IIV4 with preservative 07/22/2016 Influenza injectable quadriv alent preservative free 08/11/2018 Influenza, IIV3, injectable 09/08/2014 Influenza, live, intranasal 07/29/2013 Pfizer Covid-19 Vaccine 12+ 11/20/2021, 1,03/07/2021 Pneumococcal Polysaccharide PPSV23 09/04/2016 Social History Tobacco Use Types Packs/Day Years Used Date Smoking Tobacco: Former Cigarettes Passive Smoke Exposure: Never Smokeless Tobacco: Never Tobacco Cessation:Counseling Given: Not Answered Alcohol Use Standard Drinks/Week Comments Never 0 (1 standard drink = 0.6 oz pur e alcohol) Depression Answer Date Recorded Patient Health Questionnaire-9 Score 2 11/05/2022 Housing Stability Answer Date Recorded What is your housing situation today? I have [place] 01/29/[address] you [...] not to disclose 2021 10:16 AM EDT Last Filed Vital Signs Vital Sign Reading Time Taken Comments Blood Pressure 140/89 04/29/2024 10:04 AM EDT Pulse 67 04/29/2024 10:04 AM EDT Temperature 36.7 ??C (98.1 ??F) 04/29/2024 10:04 AM E DT Respiratory Rate 16 04/29/2024 10:04 AM EDT Oxygen Saturation 98% 04/29/2024 10:04 AM EDT Inhaled Oxygen Concentration - - Weight 61.3 kg (135 lb 3.2 oz) 04/29/2024 10:04 AM EDT Height 166 cm (5' 5.35 ) 04/29/2024 10:04 AM EDT Body Mass Index 22.26 04/29/2024 10:04 AM EDT Plan of Treatment Health Maintenance Due Date Last Done Comments CT Colonography 1976 Colonoscopy 1976 Colorectal Cancer Screening 1976 FIT DNA/Cologuard 1976 FIT 1976 FOBT 1976 Sigmoidoscopy 1976 Alcohol/Substance Use Screening 1988 Family Planning (PISQ) 1991 DTaP/Tdap/Td Vaccines (1 - Tdap) 1995 Pneumococcal Vaccine: Pediatrics (0 to 5 Years) and At-Risk Patients (6 to 49) Years) (2 of 2 - PCV) 09/04/2017 09/04/2016 Depression Screening 11/05/2023 11/05/2022, 11/05/19 23 Pap Smear 02/20/2024 02/19/2021 COVID-19 Vaccine ( season) 2024 11/20/2021, 03/28/2021, 03/07/2021 Influenza Vaccine (#1) 2024 9, 08/11/2018, 07/22/2016, Additional history exists Diabetes: Foot Exam 08/03/2024 08/03/2023, 08/03/2023, 08/03/2023, Additional history exists Diabetes: Hemoglobin A1C 08/19/202402/17/2 024, 08/03/2023, 11/04/2019 Lipid Panel 08/22/2024 08/22/2023, 01/0 12/2022, 03/04/2021 SDOH Screening 01/28/2025 01/29/2024 Tobacco Screening 12/26/2025 12/26/2024 Cervical Cancer Screening 02/19/2026 HPV/Cotest 02/19/2026 02/19/2021 Mammogram 02/23/2026 02/24/2024, 02/01, 01/27/2019, Additional history exists Zoster Vaccines (1 of 2) 2026 Eye Exam 12/26/2026 12/26/2024, 12/04, 12/26/2024, Additional history exists RSV Patients and Patients Aged 60 years or older (1 - 1-dose 75+ series) 2051 Hepatitis B Vaccines Completed 09/08/2014, 04/24/2014, 01/27/2014 HIV Screening Completed 08/22/2023 Hepatitis C Screening Completed 08/22/2023 HIB Vaccines Aged Out No longer eligi ble based on patient's age to complete this topic HPV Vaccines Aged Out No longer eligi ble based on patient's age to complete this topic Hepatitis A Vaccines Aged Out No long er eligible based on patient's age to complete this topic IPV Vaccines Aged Out No longer eligi ble based on patient's age to complete this topic Meningococcal Vaccine Aged Out No darvin ileana eligible based on patient's age to complete this topic RSV under 20 months Aged Out No longe r eligible based on patient's age to complete this topic Rotavirus Vaccines Aged Out No longer eligible based on patient's age to complete this topic Procedures Procedure Name Priority Date/Time Associated Diagnosis Comments GLUCOSE, WHOLE BLOOD Routine 12/30/2024 11:02 AM EST BI MAMMOGRAM SCREENING TOMOSYNTHESIS BILATERAL Routine 02/24/2024 10:20 AM EDT POCT GLYCATED HEMOGLOBIN, TOTAL Routine 02/18/2024 2:14 PM EDT Insulin Dependent Diabetes Mellitus HEPATITIS C ANTIBODY Routine 08/22/2023 8:32 AM EDT Periodic health assessment, general screening, adult HIV ANTIBODY/ANTIGEN ([place] [facility]) Routine 08/22/2023 8:32 AM EDT LIPID PANEL, STANDARD Routine 08/22/2023 8:32 AM EDT Hyperglycemia due to type 1 diabetes mellitus (CMS/HCC) HPV MRNA E6/E7 Routine 02/19/2021 1:16 PM EDT THINPREP IMAGING SYSTEM PAP Routine 02/19/2021 1:16 PM EDT from Last 3 Months or Most Recently Relevant to Health Maintenance Results * Glucose, Whole Blood (12/30/2024 11:02 AM EST) Glucose, Whole Blood 83 60 - 115 mg/dL [facility] Comment:METER #: [id number] Testing performed in the Endocrinology Department [address] , [address], [place]. 12/30/2024 11:0 2 AM EST 12/30/2024 11:06 AM EST us Generic External Data Provider LAB BLOOD ORDERAB LES Final Result Performing Organization Address [facility]/State/[facility] Co de Phone Number [facility] [address] [place] [phone] * BI Mammogram Screening Tomosynthesis Bilateral (02/24/2024 10:20 AM EDT) Anatomical Region Laterality Modality Breast Bilateral Mammography 02/24/2024 10:2 0 AM EDT Narrative 03/16/2024 11:29 AM EDT ? [facility] ? [address] ?[place] [address] ? Mammography Report ? Signed ? Patient: Mason Corrales,Barb ?MR#: ?? [id number] ? : 1975 ?Acct:[id number] ? Age/Sex: 48 / F ?ADM Date: 04/24/24 ? Loc: HO.MAMMO ? Attending Dr: Danna Dinh MD ? Ordering Physician: Danna Dinh MD ?Results: 1Nega ?? tive ? Date of Service: 02/24/24 ?Follow Up: 1 Year From Orig ?? inal Mammogram ? Procedure(s): MM tomosynthesis screening BI ?? Accession Number(s): [id number] ? cc: Danna Dinh MD ? EXAMINATION: ?? MM SCREENING DIGITAL BREAST TOMOSYNTHESIS, BILATERAL ? CLINICAL INFORMATION: ? Screening. Asymptomatic. ? COMPARISON: ?? Mammography: 02/23/2021, 01/27/2019, 01/25/2019 (baseline) ?? TECHNIQUE: ?? Digital breast tomosynthesis is performed in both the craniocaudal and ?? mediolateral oblique views along with computer-aided detection (CAD). ?? Synthesized 2D images are generated from the tomosynthesis. ? FINDINGS: ?? The breasts are heterogeneously dense, which may obscure small masses ?? (ACR BI-RADS breast composition Category c). ? There are no suspicious masses, suspicious grouped calcifications, or ?? areas of architectural distortion in either breast. The parenchymal ?? pattern is stable from prior exams. ??No skin or axillary abnormalities. ? MM/MM tomosynthesis screening BI ?? IMPRESSION: ?? No mammographic evidence of malignancy. ? ASSESSMENT: ? BI-RADS BI-RADS 1 - Negative ? RECOMMENDATION: ?? Routine annual mammography screening. ? 1 year F/U ? This examination should not preclude the clinical evaluation of a ?? suspicious palpable abnormality. ? This patient's information was entered into a reminder system with a ?? target due date for their next mammogram. ? Dictated By: ?Barak Phillips MD ? Signed By: ?<Electronically signed by Barak Phillips MD in OV> ?15 1126 ? DD/ 1020 ? TD/TT: ? Link Machine Operator: ? Procedure Note Donanandter, Image - 03/16/2024 [facility] [address] [place] [address] Mammography Report Signed Patient: Barb NguyenMR#: [id number] : 1975Acct:[id number] Age/Sex: 48 / FADM Date: 02/24/24 Loc: HO.MAMMO Attending Dr: Danna Dinh MD Ordering Physician: Danna Dinh MDResults: 1Nega tive Date of Service: 02/24/24Follow Up: 1 Year From Orig inal Mammogram Procedure(s): MM tomosynthesis screening BI Accession Number(s): [id number] cc: Danna Dinh MD EXAMINATION: MM SCREENING DIGITAL BREAST TOMOSYNTHESIS, BILATERAL CLINICAL INFORMATION: Screening. Asymptomatic. COMPARISON: Mammography: 02/23/2021, 01/27/2019, 01/25/2019 (baseline) TECHNIQUE: Digital breast tomosynthesis is performed in both the craniocaudal and mediolateral oblique views along with computer-aided detection (CAD). Synthesized 2D images are generated from the tomosynthesis. FINDINGS: The breasts are heterogeneously dense, which may obscure small masses (ACR BI-RADS breast composition Category c). There are no suspicious masses, suspicious grouped calcifications, or areas of architectural distortion in either breast. The parenchymal pattern is stable from prior exams. No skin or axillary abnormalities. MM/MM tomosynthesis screening BI IMPRESSION: No mammographic evidence of malignancy. ASSESSMENT: BI-RADS BI-RADS 1 - Negative RECOMMENDATION: Routine annual mammography screening. 1 year F/U This examination should not preclude the clinical evaluation of a suspicious palpable abnormality. This patient's information was entered into a reminder system with a target due date for their next mammogram. Dictated By: Barak Phillips MD Signed By: <Electronically signed by Barak Phillips MD in OV> 03/16/24 1126 DD/ 1020 TD/TT: Link Machine Operator: Danna Dinh MD IMG BI PROCEDURES Final Resul t * POCT HGB A1C (02/18/2024 2:14 PM EDT) Hemoglobin A1C 5.1 4.0 - 6.0 % QC Media Lot # [id number] Lot# Expiration Date Blood 02/18/2024 2:14 PM EDT Result [facility] Danna Dinh MD POINT OF CARE TEST ENTER/EDIT ORDERABLES Final Result * Hepatitis C Ab (08/22/2023 8:32 AM EDT) Hepatitis C Antibody Nonreactive Nonreactive [facility] Comment:Antibodies to HCV no t detected; does not exclude early acuteHCV infection. Blood 08/22/2023 8:32 AM EDT 08/22/2023 8:32 AM EDT Danna Dinh MD LAB BLOOD ORDERABLES Final Re sult [facility] [address] [place], [place] [phone] * HIV Ab/Ag ([facility]) (08/22/2023 8:32 AM EDT) HIV AB/AG Nonreactive Nonreactive [facility] Comment:HIV-1 p24 Ag and/or HIV-1/HIV-2 Ab not detected.A test result that is nonreactive does not exclude thepossibility of exposure to or infection with HIV-1 and/orHIV-2. Nonreactive results in this assay for individualswith prior exposure to HIV-1 and/or HIV-2 may be due toantigen and antibody levels that are below the limit ofdetection of this assay.The [employer] HIV Ag/Ab Combo assay result andsupplemental assay results should be interpreted inconjunction with the patient's clinical presentation,history and other laboratory results. If the results areinconsistent with clinical evidence, additional testing issuggested to confirm the result. 08/22/2023 8:32 AM EDT 08/22/2023 8:32 AM EDT us Danna Dinh MD LAB BLOOD ORDERABLES Final Re sult [facility] [address] [place] [phone] * (ABNORMAL) Lipid Panel, Standard (08/22/2023 8:32 AM EDT) Triglycerides 83 <150 mg/dL [facility] Comment:Desirable Triglyceri de: less than 150 mg/dLBorderline High Triglyceride 150-199 mg/dLHigh Triglyceride: 200-499 mg/dLVery High Triglyceride: greater than or equal to 5OO mg/dL Cholesterol 186 <200 mg/dL [facility] Comment:Desirable Cholestero l: less than 200 mg/dLBorderline High Cholesterol: 200-239 mg/dLHigh Cholesterol: greater than 239 mg/dL LDL Cholesterol Calculated 125(H) <100 mg/dL [facility] Comment:Desirable LDL: less than 100 mg/dLNear Optimal/Above Optimal LDL: 110- 129 mg/dLBorderline High LDL: 130-159 mg/dLHigh LDL: 160-189 mg/dLVery High LDL: greater than or equal to 190 mg/dL HDL Cholesterol 45 >40 mg/dL [facility] Comment:Desirable HDL: great er than 40 mg/dL Note: This HDL assay may give artificially low results in patients with liver disease. Blood Venous blood specimen / Unknown 08/22/2023 8:32 AM EDT 08/22/2023 8:32 AM EDT us Danna Dinh MD LAB BLOOD ORDERABLES Final Re sult [facility] [address] [place] [phone] [phone] * THINPREP TIS PAP (02/19/2021 1:16 PM EDT) Clinical Information: None given [facility] COMMENT SEE COMMENT [facility] Comment: EXPLANATORY NOTE: ? The Pap is a screening test for cervical cancer. It is ?? not a diagnostic test and is subject to false negative ?? and false positive results. It is most reliable when a ?? satisfactory sample, regularly obtained, is submitted ?? with relevant clinical findings and history, and when ?? the Pap result is evaluated along with historic and ?? current clinical information. ?? COMMENT: This Pap test has been evaluated with computer assisted technology. [facility] Feed House Supervisor : SEE COMMENT [facility] Comment: CMG, CT(ASCP) CT screening location: [address] ??[address] Infection Shift in vaginal dameon suggestive of bacterial vaginosis. [facility] Interpretation/R esult: Negative for intraepithelial lesion or malignancy. [facility] LMP: NONE GIVEN [facility] Prev. BX: NONE GIVEN [facility] Prev. PAP: NONE GIVEN [facility] SOURCE: None given [facility] Statement Of Adequacy: SEE COMMENT [facility] Comment: Satisfactory for evaluation. Endocervical/transformation zone component present. Age and/or menstrual status not provided 02/19/2021 1:16 PM EDT us Danna Dinh MD LAB PATHOLOGY ORDERABLES Yeny l Result Performing Organization Address City/[facility]/ZIP Co de Phone Number [facility] [address] * HPV mRNA E6/E7 (02/19/2021 1:16 PM EDT) HPV nRNA E6/E7 Not Detected Not Detected [facility] Comment: Methodology: Call Centre Supervisor-Mediated Amplification This assay detects E6/E7 viral messenger RNA (mRNA) from 14 high-risk HPV types (16,18,31,33,35,39,45,51,52,56,58,59,66,68). ? The analytical performance characteristics of this assay have been determined by [employer]. The modifications have not been cleared or approved by the FDA. This assay has been validated pursuant to the CLIA regulations and is used for clinical purposes. ?? For additional information, please refer to http://education.Zivity/faq/AGS589j3 (This link if provided for information/ educational purposes only.) 02/19/2021 1:16 PM EDT us Danna Dinh MD LAB BLOOD ORDERABLES Final Re sult [facility] [address] from Last 3 Months or Most Recently Relevant to Health Maintenance Insurance [facility] C3 Care Teams Senior Architect Relationship Specialty Start Date End Date Danna Dinh MD [address] [place] [address] [place] [address] PCP - General Family Medicine 12/21/20
--- OUTSIDE RECORDS SUMMARY | 2024-12-30 12:18 | XMS_ITS | Clinical Summary ---
Author Organization [facility] Address [address] [place] [address] Care Team Providers Care Picking Belt Operator Name Role Phone Unavailable Primary Care Provider Unavailabl e Source Comments PLEASE NOTE, if this patient is a minor, it may be UNLAWFUL to discuss sensitive information that is contained in these records (such as FAMILY PLANNING, MENTAL HEALTH or SUBSTANCE ABUSE) with the minor patient's parent or other person without the patient's specific authorization.[facility] Immunizations Name Administration Dates Next Due PFIZER COVID VACCINE, PURPLE CAP, 12+ 03/28/2021 ,03/07/2021 Social History Tobacco Use Types Packs/Day Years Used Date Smoking Tobacco: Never Assessed Social Connections Answer Date Recorded Social Connections and Isolation 0 03/07/2021 Financial Resource Strain Answer Date R ecorded Financial Resource Strain 0 2020 Stress Answer Date Recorded Stress 0 03/07/2021 Physical Activity Answer Date Recorded Physical Activity 0 03/07/2021 Food Insecurity Answer Date Recorded Food 0 03/07/2021 Transportation Needs Answer Date Record ed Transportation 0 03/07/2021 Housing Stability Answer Date Recorded Housing 0 03/07/2021 Safety and Environment Answer Date Jerel rded Safety 0 03/07/2021 Utilities Answer Date Recorded Utilities 0 03/07/2021 Employment Answer Date Recorded Employment 0 03/07/2021 Comments Unknown Sex and Gender Information Value Date Recorded Sex Assigned at Not on file Legal Sex Female 7:54 AM PDT Gender Identity Not on file Sexual Orientation Not on file Plan of Treatment Health Maintenance Due Date Last Done Comments Diabetes Screening 1976 HPV Screening 1976 Hepatitis C Screening 1976 Lipid Screening 1976 Pap + HPV 1976 Tobacco Screening 1976 HIV Screening 1991 Relationship Safety Screening/Counseling 1991 Hypertension Screening (#1) 1994 Imm-DTaP/Tdap/Td (1 - Tdap) 1995 Imm-Hepatitis B (1 of 3 - 19 + 3-dose series) 1995 Cervical Cancer Screening 1997 Pap Smear 1997 Breast Cancer Screening (Mammogram) 2016 CT Colonography 2021 Colonoscopy 2021 Colorectal Cancer Screening 2021 FIT/gFOBT 2021 Fecal DNA 2021 Flexible Sigmoidoscopy 2021 [id number] ( season) 2024 021, 03/07/2021 Imm-Influenza (#1) 2024 07/28/2019, 1 , 07/22/2016, Additional history exists Alcohol and Drug Screen 11/02/2024 Depression Annual Screen 11/02/2024 Cervical Ablation/Cold-Knife Conization Discontinued Cervical Cryotherapy Discontinued Colposcopy Discontinued Endometrial Biopsy Discontinued Excision/Leep Discontinued HPV Genotyping Discontinued Vaginal Pap Discontinued Vulvoscopy Discontinued Insurance [address] [employer] Member Subscriber Plan / Payer (Ef fective 2023-Present) Name:Cuevas Barb Relation to Subscriber:Self Name:Cuevas, Barb Payer ID:[id number] Group ID:Not on file Type:Managed Medicaid Address: [facility] [id number] [place] [id number]
--- OUTSIDE RECORDS SUMMARY | 2024-12-30 12:18 | XMS_ITS | Encounter Summary ---
Author Organization [employer] Address [address] [facility] [address] [place] [address] Care Team Providers Care Rand Cementer Name Role Phone Danna Dinh MD Primary Care Provider [phone] Encounter Details Date Type Department Care Team (Late st Contact Info) Description 12/30/2024 Orders Only GENERIC EXTERNAL DATA DEPARTMENT Provider, Generic External Data Social History Tobacco Use Types Packs/Day Years [...] on file documented as of this encounter Procedures Procedure Name Priority Date/Time Associated Diagnosis Comments GLUCOSE, WHOLE BLOOD Routine 12/30/2024 11:02 AM EST documented in this encounter Results * Glucose, Whole Blood (12/30/2024 11:02 AM EST) Glucose, Whole Blood 83 60 - 115 mg/dL [facility] Comment:METER #: [id number] Testing performed in the Endocrinology Department [address] , [address], [facility]. 12/30/2024 11:0 2 AM EST 12/30/2024 11:06 AM EST us Generic External Data Provider LAB BLOOD ORDERAB LES Final Result [facility] [address] [place] [phone] documented in this encounter Visit Diagnoses Not on filedocumented in this encounter Additional Health Concerns Assessment Noted Time PHQ-9 Depression Total Score: 2 11/05/19 23 2:50 PM EST documented as of this encounter Care Teams Rand Cementer Relationship Specialty Start Date End Date Danna Dinh MD [address] [place] [phone] PCP - General Family Medicine 12/21/20 documented as of this encounter
--- OUTSIDE RECORDS SUMMARY | 2024-12-30 12:18 | XMS_ITS | Encounter Summary ---
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 I have anshu maximo 01/29/[address] you li [...] AM EDT documented as of this encounter Progress Notes * Sara Pratt, OD - 12/26/2024 11:00 AM EST Eye Care Progress Note Patient ID: Barb Corrales is a 49 y.o. female. Chief Complaint Diabetic Eye Exam HPI Here for a diabetic eye exam. She has Type II IDDM. Her last HbA1c was 5.1% in 02/2024. Today the patient complains of trouble seeing at near with both eyes. She denies distance vision complaints. She denies any other ocular complaints. Last eye exam was here in 07/2022. Last edited by Sara Pratt, OD on 12/26/2024 11:53 AM. Current Outpatient Medications Medication Sig Dispense Refill hydrOXYzine HCl (Atarax) 10 MG tablet TAKE 1-2 TABLETS TWICE A DAY NEEDED Trulicity 0.75 MG/0.5ML solution auto-injector INJECT ONE PEN (=0.75MG) SUBCUTANEOUSLY ONCE A WEEK DIRECTED Acetaminophen 500 MG capsule Take 1 capsule by mouth every 6 (six) hours. albuterol (2.5 MG/3ML) 0.083% nebulizer solution Inhale 3 mL every 4 (four) hours if needed for cough, wheezing or shortness of breath. albuterol (ProAir HFA) 108 (90 Base) MCG/ACT inhaler inhale 2 puff by inhalation route every 4 - 6 hours as needed B Mccevpk-Ysofvf-WM (Complex B-50 Prolonged Release) tablet controlled-release take 1 tablet once aday PO benzonatate (Tessalon) 100 MG capsule Take 1 capsule by mouth every 8 (eight) hours. cholecalciferol (Vitamin D-3) 25 MCG (1000 UT) tablet Take 1 tablet by mouth in the morning. Continuous Glucose Door Repairman (FreeStyle Macey 2 Purmela) device Scan sensor every 8 hours 1 each 0 Continuous Glucose Sensor (FreeStyle Macey 2 Sensor) [facility] Apply 1 sensor every 14 days 2 each 11 [facility] Gentle Laxative 5 MG EC tablet TAKE 4 TABS AT NOON THE DAY BEFORE YOUR COLONOSCOPY escitalopram (Lexapro) 5 MG tablet Take 10 mg by mouth in the morning. Flovent HFA 110 MCG/ACT inhaler TAKE 1 PUFF BY MOUTH TWICE A DAY 12 g 5 fluticasone (Flonase Allergy Relief) 50 MCG/ACT nasal spray Administer 2 sprays into affected nostril(s) 1 (one) time each day. GaviLAX 17 GM/SCOOP powder PLEASE SEE ATTACHED FOR DETAILED DIRECTIONS glucose blood (FREESTYLE LITE) test strip 1 each every 4 (four) hours. hydrocortisone 2.5 % cream Apply pea sized amount to skin bid for 1 week 15 g 0 ibuprofen 600 MG tablet Take 1 tablet (600 mg) by mouth every 6 (six) hours. 60 tablet 0 insulin glargine (Toujeo SoloStar) 300 UNIT/ML injection INJECT 6 UNITS BY SUBCUTANEOUS ROUTE ONCE A DAY IN THE EVENING 3 mL 0 lisinopril 30 MG tablet TAKE 1 TABLET (30 MG) BY MOUTH IN THE MORNING 90 tablet 1 loratadine (Claritin) 10 MG tablet Take 1 tablet by mouth 1 (one) time each day. magnesium 200 MG tablet take 1 tablet PO qdaily mirtazapine (Remeron) 15 MG tablet TAKE 1 TABLET BY MOUTH AT BEDTIME 90 tablet 1 nicotine (Nicoderm CQ) 14 MG/24HR patch Place 1 patch on the skin 1 (one) time each day at the sametime. 180 patch 1 norethindrone-ethinyl estradiol (Ortho-Novum , 28,) 1-35 MG-MCG tablet Take 1 tablet by mouth in the morning. 28 tablet 11 polyvinyl alcohol (Artificial Tears) 1.4 % ophthalmic solution 1 drop in each eye 2 to 3 times a day for dryness rosuvastatin (Crestor) 40 MG tablet TAKE 1 TABLET BY MOUTH EVERY DAY IN THE MORNING 90 tablet 1 triamcinolone (Kenalog) 0.5 % ointment Apply topically 2 times daily. 90 g 0 No current facility-administered medications for this visit. Past Medical History: Diagnosis Date Hypertension Type 1 diabetes (CMS/HCC) History reviewed. No pertinent surgical history. No family history on file. Social History Socioeconomic History Marital status: Single Spouse name: Not on file Number of children: Not on file Years of education: Not on file Highest education level: Not on file Occupational History Not on file Tobacco Use Smoking status: Former Types: Cigarettes Passive exposure: Never Smokeless tobacco: Never Vaping Use Vaping status: Never Used Substance and Sexual Activity Alcohol use: Never Drug use: Never Sexual activity: Not on file Other Topics Concern Not on file Social History Narrative Not on file Social Drivers of Health Food Insecurity: High Risk (01/29/2024) Food Insecurity Within the past 12 months, you worried that your food would run out before you got money to buy more:: Sometimes True Within the past 12 months,the food you bought just didn't last and you didn't have enough money to get more: : Sometimes True Transportation Needs: Low Risk (01/29/2024) Transportation In the past 12 months, has lack of transportation kept you from medical appts, meetings, work or from getting things needed for daily living? : No Intimate Partner Violence: Not on file Housing Stability: Low Risk (01/29/2024) Housing Stability What is your housing situation today?: I have housing Think about the place you live. Do you have problems with any of the following? : None of the above No Known Allergies ROS Positive for: Eyes Negative for: Constitutional, Gastrointestinal, Neurological, Skin, Genitourinary, Musculoskeletal,HENT, Endocrine, Cardiovascular, Respiratory, Psychiatric, Allergic/Imm, Heme/Lymph Last edited by Sara Pratt OD on 12/26/2024 11:19 AM. Base Eye Exam Visual Acuity (Snellen - Linear) Right Left Dist cc 20/20 20/20 Correction: Glasses Tonometry ([facility] , 11:22 AM) Right Left Pressure 12 13 Pupils Pupils APD Right PERRL None Left PERRL None Visual Vinson (Counting fingers) Left Right Full Full Extraocular Movement Right Left Full Full Neuro/Psych Oriented x3: Yes Mood/Affect: Normal Dilation Both eyes: 1.0% Tropicamide @ 11:22 AM Slit Lamp and Fundus Exam External Exam Right Left External Normal Normal Slit Lamp Exam Right Left Lids/Lashes Normal Normal Conjunctiva/Sclera White and quiet White and quiet Cornea Clear Clear Anterior Chamber Deep and quiet Deep and quiet Iris Flat, no NVI Flat, no NVI Lens Clear Clear Fundus Exam Right Left Vitreous Clear Clear Disc [place] and Distinct, No NVD [place] and Distinct, No NVD C/D Ratio Vertical 0.2 0.2 C/D Ratio Horizontal 0.2 0.2 Macula Flat and Intact, no CSME Flat and Intact, no CSME Vessels Normal Normal Periphery No Holes/Breaks/Tears 360 degrees, no NVE No Holes/Breaks/Tears 360 degrees, no NVE Refraction Wearing Rx Sphere Cylinder [place] Add Right +0.25 -0.50 075 +1.50 Left [place] -0.50 090 +1.50 Type: NVO Manifest Refraction Sphere Cylinder [place] Dist VA Add Right +0.25 -0.50 075 20/20 +1.50 Left +0.25 -0.50 090 20/20 +1.50 Dist VA Both: 20/20 Near VA Both: 20/20 Final Rx Sphere Cylinder [place] Dist VA Add Right +0.25 -0.50 075 20/20 +1.50 Left +0.25 -0.50 090 20/20 +1.50 Expiration Date: 12/26/2025 Assessment/plan: Diagnoses and all orders for this visit: 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 The patient was educated on the exam findings. The patient was educated to continue controlling blood glucose levels through diet, exercise and medication. The patient was educated on potential complications of diabetic retinopathy, including blindness, if left untreated. The patient was educated on the importance of an annual diabetic eye exam to monitor for diabetic retinopathy. A summary of today's dilated eye exam results will be communicated to the patient's PCP through the shared patient problem list in [facility].Will monitor in 1 year. Presbyopia Glasses prescription updated and given. Will monitor at the patient's next full eye exam. 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
== END 2024-12-30 11:27 | disposition home or self-care (01) ==
PROVIDERS: PCP Family Medicine; Visit Provider Nurse Practitioner Adult Health
DX: E11.9 Type 2 diabetes mellitus without complications (principal)
CPT/HCPCS: 99214

== ENCOUNTER → 2024-12-30 10:44 | Outpatient (BNVA) | payer MEDICAID, SELFPAY | PROVIDERS: PCP Family Medicine; Visit Provider Nurse Practitioner Adult Health | DX: E11.9 Type 2 diabetes mellitus without complications (principal) | CPT/HCPCS: 82947; 83036; 99212 ==

== ENCOUNTER 2025-02-16 20:22 | Emergency (ER) | payer MEDICAID, SELFPAY ==
--- NOTE | ~2025-02-16 | XR_ITS ---
CLINICAL HISTORY: cough, sob 2 view chest x-ray Comparison: CR/SR - XR CHEST 1V - 05/03/22 21:35 EDT Findings: No consolidation or effusion. Heart size is normal. No acute fracture. IMPRESSION: 1. No acute findings. This document has been electronically signed by: Anup Sampson MD on 02/16/2025 22:09:10
[2025-02-16 21:17] VITALS: BP 139/83; PULSE 82; RESP 18; TEMP 36.6; O2SAT 100; BMI 22.6
[2025-02-16 22:18] LABS: IDNOW Serial# 6674DD1D; Strep A Nucleic Acid Negative (Negative)
[2025-02-16 22:39] LABS: Influenza A PCR NEGATIVE (Negative); Influenza B PCR NEGATIVE (Negative); Resp Syncy Virus RNA Qual PCR NEGATIVE (Negative); SARS COV2 PCR INHOUSE NEGATIVE (Negative)
--- OUTSIDE RECORDS SUMMARY | 2025-02-16 23:36 | XMS_ITS | Clinical Summary ---
Author Organization [employer] Address [address] [place] [address] 7t [place] [address] Care Team Providers Care Gun Numberer Name Role Phone Danna Dinh MD Primary Care Provider [phone] Allergies No known active allergies Medications loratadine (Claritin) 10 MG tablet Take 1 tablet by mouth 1 (one) time each day. Active fluticasone (Flonase Allergy Relief) 50 MCG/ACT nasal spray Administer 2 sprays into affected nostril(s) 1 (one) time each day. Active albuterol (ProAir HFA) 108 (90 Base) [...] MG tablet take 1 tablet PO qdaily Active polyvinyl alcohol (Artificial Tears) 1.4 % ophthalmic solution 1 drop in each eye 2 to 3 times a day for dryness 01/27/2 017 Active Flovent HFA 110 MCG/ACT inhaler TAKE 1 PUFF BY MOUTH TWICE A DAY 12 g 5 023 Active norethindrone- ethinyl estradiol (Ortho-Novum , ,) 1-35 MG-MCG tablet Take 1 tablet by mouth in the morning. 28 tablet 11 023 Active escitalopram (Lexapro) 5 MG tablet Take 10 mg by mouth in the morning. 024 Active ibuprofen 600 MG tablet Take 1 tablet (600 mg) by mouth every 6 (six) hours. 60 tablet Active nicotine (Nicoderm CQ) 14 MG/24HR patch Place 1 patch on the skin 1 (one) time each day at the same time. 180 patch 1 Active Continuous Glucose Patient Flow Coordinator (FreeStyle Macey 2 Milton) device Scan sensor every 8 hours 1 each Active Continuous Glucose Sensor (FreeStyle Macey 2 Sensor) misc Apply 1 sensor every 14 days 2 each 024 Active hydrocortisone 2.5 % cream Apply pea sized amount to skin bid for 1 week 15 g 024 Active GaviLAX 17 GM/SCOOP powder PLEASE SEE ATTACHED FOR DETAILED DIRECTIONS Active [facility] Gentle Laxative 5 MG EC tablet TAKE 4 TABS AT NOON THE DAY BEFORE YOUR COLONOSCOPY 024 Active triamcinolone (Kenalog) 0.5 % ointment Apply topically 2 times daily. 90 g 024 Active mirtazapine (Remeron) 15 MG tablet TAKE 1 TABLET BY MOUTH AT BEDTIME 90 tablet 1 024 Active rosuvastatin (Crestor) 40 MG tablet TAKE 1 TABLET BY MOUTH EVERY DAY IN THE MORNING 90 tablet 1 024 Active lisinopril 30 MG tabletIndicati ons:Hypertensi on, unspecified type TAKE 1 TABLET (30 MG) BY MOUTH IN THE MORNING 90 tablet 1 024 Active insulin glargine (Toujeo SoloStar) 300 UNIT/ML injection INJECT 6 UNITS BY SUBCUTANEOUS ROUTE ONCE A DAY IN THE EVENING 3 mL 025 Active Trulicity 0.75 MG/0.5ML solution auto-injector INJECT ONE PEN (=0.75MG) SUBCUTANEOUSLY ONCE A WEEK DIRECTED Active hydrOXYzine HCl (Atarax) 10 MG tablet TAKE 1-2 TABLETS TWICE A DAY NEEDED Active albuterol (2.5 MG/3ML) 0.083% nebulizer solution Take 3 mL by nebulization every 4 (four) hours if needed for wheezing. 75 mL 3 Active albuterol (2.5 MG/3ML) 0.083% nebulizer solution Inhale 3 mL every 4 (four) hours if needed for cough, wheezing or shortness of breath. 022 2024 Discontinued(R eorder (will not trigger notification to Pharmacy)) dextromethorph an-guaiFENesin (Tussin DM) 10-100 MG/5ML liquidIndicati ons:URI, acute Take 5 mL by mouth every 4 (four) hours if needed for cough for up to 10 days. 180 mL 025 2024 ibuprofen 400 MG tabletIndicati ons:URI, acute Take 1 tablet (400 mg) by mouth every 6 (six) hours if needed for moderate pain for up to 10 days. 20 tablet 025 2024 Active Problems Problem Noted Date Diagnosed Date [...] Encounters Date Type Department Care Team Description 02/16/2025 Orders Only [facility] External Provider, [facility] 02/03/2025 9:15 AM EDT Office Visit [facility] OPTOMETRY [facility] [place] [address] Terence, Sara, OD Presbyopia (Primary Dx) 02/02/2025 Telephone [facility] [address] [place] [address] Danna Dinh MD Nurse Triage 02/02/2025 Refill [facility]S [address] [place] [address] Danna Dinh MD 01/30/2025 10:45 AM EDT Office Visit [facility] PEDS [address] [place] [address] Ludivina Olivas MD URI, acute (Primary Dx) 01/30/2025 Travel 01/30/2025 Telephone [facility] MEDICINE [address] [place] [address] Danna Dinh MD Nurse Triage 01/13/2025 Population Health Risk Score [facility] () Department [address] [place] [phone] Provider, Population Health Generic 12/30/2024 Orders Only GENERIC EXTERNAL DATA DEPARTMENT Provider, Generic External Data 12/26/2024 11:00 AM EST Office Visit [facility] OPTOMETRY [address] [place] [address] Terence, Sara, OD 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); Presbyopia 12/26/2024 Travel from Last 3 Months Immunizations Name Administration Dates Next Due Hep B, adult 09/08/2014,04/24/2014,01/27/2014 Influenza Injectable Quadriv alant Preservative Free IIV4 MDCK 07/28/2019 Influenza injectable quadriv alent IIV4 with preservative 07/22/2016 Influenza injectable quadriv alent preservative free 08/11/2018 Influenza, IIV3, injectable 09/08/2014 Influenza, live, intranasal 07/29/2013 Pfizer Covid-19 Vaccine 12+ 11/20/2021,,03/07/2021 Pneumococcal Polysaccharide PPSV23 09/04/2016 Social History Tobacco [...] Sign Reading Time Taken Comments Blood Pressure 116/73 01/30/2025 10:44 AM EDT Pulse 90 01/30/2025 10:44 AM EDT Temperature 36.3 ??C (97.4 ??F) 01/30/2025 10:44 AM E DT Respiratory Rate 20 01/30/2025 10:44 AM EDT Oxygen Saturation 99% 01/30/2025 10:44 AM EDT Inhaled Oxygen Concentration - - [...] 08/03/2023, Additional history exists Diabetes: Hemoglobin A1C 08/19/2024 024, 08/03/2023, 11/04/2019 Lipid Panel 08/22/2024 08/22/2023, 010 12/2022, 03/04/2021 SDOH Screening 01/28/2025 01/29/2024 Tobacco Screening 01/30/2026 01/30/2025 Cervical Cancer Screening 02/19/2026 HPV/Cotest 02/19/2026 02/19/2021 [...] Procedure Name Priority Date/Time Associated Diagnosis Comments XR CHEST 2 VIEWS Routine 02/16/2025 10:0 9 PM EDT SARS COV2/INFLUENZA A/B AND RSV RNA QL NAAT Routine 02/16/2025 9:41 PM EDT STREP A NUCLEIC ACID Routine 02/16/2025 9:41 PM EDT POCT RAPID COVID ANTIGEN Routine 01/30/2025 11:42 AM EDT URI, acute POCT INFLUENZA A Routine 01/30/2025 11:4 1 AM EDT URI, acute POCT INFLUENZA B Routine 01/30/2025 11:4 0 AM EDT URI, acute GLUCOSE, WHOLE BLOOD Routine 12/30/2024 11:02 AM [...] Recently Relevant to Health Maintenance Results * XR Chest 2 Views (02/16/2025 10:09 PM EDT) Anatomical Region Laterality Modality Chest Radiographic Bisi ging 02/16/2025 10:0 9 PM EDT Narrative 02/16/2025 10:11 PM EDT ? [facility] ?[address] ?[place] [address] ?XRay Report ? Signed ? Patient: Barb Nguyen ?MR#: ?? [id number] ? : 1975 ?Acct:[id number] ? Age/Sex: 49 / F ?ADM Date: 02/16/25 ? Loc: HO.ED ? Attending Dr: ? Ordering Physician: Generic ED Physician ?? Date of Service: 02/16/25 ?? Procedure(s): XR chest 2V ?? Accession Number(s): [id number] ? cc: Generic ED Physician; Danna Dinh MD ? CLINICAL HISTORY: cough, sob ? 2 view chest x-ray ? Comparison: CR/SR - XR CHEST 1 - 05/03/22 21:35 EDT ? Findings: ?? No consolidation or effusion. ?? Heart size is normal. ?? No acute fracture. ? IMPRESSION: ?? 1. No acute findings. ? This document has been electronically signed by: Anup Sampson MD on ?? 02/16/2025 22:09:10 ? Dictated By: ?Anup Sampson MD ? Signed By: ?<Electronically signed by Anup Sampson MD in OV> ?02/16/252209 ? DD/ 08 ? TD/TT: 02/16/252208 ? Print Project Manager: ? Procedure Note Donanandter, Image - 02/16/[address] [address] XRay Report Signed Patient: Barb NguyenMR#: [id number] : 1975Acct:[id number] Age/Sex: 49 / FADM Date: 02/16/25 Loc: HO.ED Attending Dr: Ordering Physician: Generic ED Physician Date of Service: 02/16/25 Procedure(s): XR chest 2V Accession Number(s): [id number] cc: Generic ED Physician; Danna Dinh MD CLINICAL HISTORY: cough, sob 2 view chest x-ray Comparison: CR/SR - XR CHEST 1V - 05/03/22 21:35 EDT Findings: No consolidation or effusion. Heart size is normal. No acute fracture. IMPRESSION: 1. No acute findings. This document has been electronically signed by: Anup Sampson MD on 02/16/2025 22:09:10 Dictated By: Anup Sampson MD Signed By: <Electronically signed by Anup Sampson MD in OV> 02/16/252209 DD/ 08 TD/TT: 02/16/252208 Print Project Manager: [facility] External Provider IMG XR PROCEDURES Edited Result - Final * Strep A Nucleic Acid (02/16/2025 9:41 PM EDT) IDNOW SERIAL# [id number] [facility] Strep A Nucleic Acid Negative Negative [facility] Comment:All test results mus t be correlated with clinical findings.This test has not been evaluated for monitoring treatment ofinfection.Additional follow-up testing using the culture method isrequired if the result is negative and clinical symptomspersist, or in the event of an acute rheumatic feveroutbreak. 02/16/2025 9:41 PM EDT 02/16/2025 9:45 PM EDT Generic External Data Provider LAB MICROBIOLOGY - GENERAL ORDERABLES Final Result Performing Organization Address [facility] Co de Phone Number [facility] [address] [place] [phone] * SARS-CoV-2 RNA, Influenza A/B, and RSV RNA, Ql NAAT (02/16/2025 9:41 PM EDT) [facility] Influenza A PCR NEGATIVE Negative [facility] Influenza B PCR NEGATIVE Negative [facility] Resp Syncy Virus RNA Qual PCR NEGATIVE Negative [facility] SARS COV2 PCR NEGATIVE Negative [facility] Comment:All test results mus t be correlated with clinical findings.Negative results do not preclude SARS-CoV2, influenza Avirus, influenza B virus and/or RSV infectionand should not be used as the sole basis for treatment orother patient management decisions. Negative results must becombined with clinical observations, patient history, andepidemiological information.This test has not been evaluated for monitoring treatment ofinfection.This test has been authorized by the FDA under an EmergencyUse Authorization (EUA) for use by authorized laboratories.Testing performed on the [employer] GeneXpert utilizingreal-time RT-PCR.All SARS CoV2 and positive influenza A/B results arereported to [facility]. 02/16/2025 9:41 PM EDT 02/16/2025 9:45 PM EDT Generic External Data Provider LAB MICROBIOLOGY - GENERAL ORDERABLES Final Result Performing Organization Address [facility]/ZIP Co de Phone Number [facility] [address] [place] [phone] * POCT Rapid Covid-19 BinaxNOW (01/30/2025 11:42 AM EDT) [facility] Rapid COVID Ag Negative QC Media Lot # [id number] Lot# Expiration Date [id number] Comment:controls passed Swab 01/30/2025 11:4 2 AM EDT Ludivina Olivas MD POINT OF CARE TEST ENTER/ED IT ORDERABLES Final Result * POCT Rapid Influenza A OSOM (01/30/2025 11:41 AM EDT) Rapid Influenza A Ag Negative Negative, Indeterminate QC Media Lot # [id number] Lot# Expiration Date Comment:controls passed Swab Nasopharyngeal structure / Unknown 01/30/2025 11:41 AM EDT us Ludivina Olivas MD POINT OF CARE TEST ENTER/ED IT ORDERABLES Final Result * POCT Rapid Influenza B OSOM (01/30/2025 11:40 AM EDT) Pathologist [facility] Rapid Influenza B Ag Negative Negative, Indeterminate QC Media Lot # [id number] Lot# Expiration Date Comment:controls passed Swab 01/30/2025 11:4 0 AM EDT us Ludivina Olivas MD POINT OF CARE TEST ENTER/ED IT ORDERABLES Final Result * Glucose, Whole Blood (12/30/2024 11:02 AM EST) Pathologist [facility] Glucose, Whole Blood 83 60 - 115 mg/dL [facility] Comment:METER #: [id number] Testing performed in the Endocrinology Department [address] , [address], [facility]. 12/30/2024 11:0 2 AM EST 12/30/2024 11:06 AM EST us Generic External Data Provider LAB BLOOD ORDERAB LES Final Result [facility] [address] [place] [phone] * BI Mammogram Screening Tomosynthesis Bilateral (02/24/2024 10:20 AM EDT) Anatomical Region Laterality Modality Breast Bilateral Mammography 02/24/2024 10:2 0 AM EDT Narrative 03/16/2024 11:29 AM EDT ? [facility] ? [address] ?[place] [address] ? Mammography Report ? Signed ? Patient: Cuevas Savanna,Barb ?MR#: ?? [id number] ? : 1975 ?Acct:[id number] ? Age/Sex: 48 / F ?ADM Date: 02/24/24 ? Loc: HO.MAMMO ? Attending Dr: Danna Dinh MD ? Ordering Physician: Danna Dinh MD ?Results: 1Nega ?? tive ? Date of Service: 02/24/24 ?Follow Up: 1 Year From Orig ?? inal Mammogram ? Procedure(s): MM tomosynthesis screening BI ?? Accession Number(s): [id number] ? cc: Danna Dinh MD ? EXAMINATION: [...] signed by Barak Phillips MD in OV> ?03/16/24 1126 ? DD/ 1020 ? TD/TT: ? Print Project Manager: ? Procedure Note Donyoli, Image - 03/16/2024 [facility] [address] [place] [address] Mammography Report Signed Patient: Barb NguyenMR#: [id number] : 1975Acct:[id number] Age/Sex: 48 / FADM Date: 02/24/24 Loc: HO.MAMMO Attending Dr: Danna Dinh MD Ordering Physician: Danna Dinh MDResults: 1Nega tive Date of Service: 02/24/24Follow Up: 1 Year From Orig inal Mammogram Procedure(s): MM tomosynthesis screening BI Accession Number(s): [id number] cc: Danna Dinh MD EXAMINATION: MM SCREENING [...] in OV> 03/16/24 1126 DD/ 1020 TD/TT: Print Project Manager: Danna Dinh MD IMG BI PROCEDURES Final Resul t * POCT HGB A1C (02/18/2024 2:14 PM EDT) Hemoglobin A1C 5.1 4.0 - 6.0 % QC Media Lot # [id number] Lot# Expiration Date Blood 02/18/2024 2:14 PM EDT Result [facility] Danna Dinh MD POINT OF CARE TEST ENTER/EDIT ORDERABLES Final Result * Hepatitis C Ab (08/22/2023 8:32 AM EDT) Hepatitis C Antibody Nonreactive Nonreactive [facility] Comment:Antibodies to HCV no t detected; does not exclude early acuteHCV infection. Blood 08/22/2023 8:32 AM EDT 08/22/2023 8:32 AM EDT Danna Dinh MD LAB BLOOD ORDERABLES Final Re sult [facility] [address] [place] [phone] * HIV Ab/Ag (BLOSSOM NIELSEN) (08/22/2023 8:32 AM EDT) HIV AB/AG Nonreactive Nonreactive [facility] Comment:HIV-1 p24 Ag and/or HIV-1/HIV-2 Ab not detected.A test result that is nonreactive does not exclude thepossibility of exposure to or infection with HIV-1 and/orHIV-2. Nonreactive results in this assay for individualswith prior exposure to HIV-1 and/or HIV-2 may be due toantigen and antibody levels that are below the limit ofdetection of this assay.The Lucky Ant HIV Ag/Ab Combo assay result andsupplemental assay results should be interpreted inconjunction with the patient's clinical presentation,history and other laboratory results. If the results areinconsistent with clinical evidence, additional testing issuggested to confirm the result. 08/22/2023 8:32 AM EDT 08/22/2023 8:32 AM EDT us Danna Dnih MD LAB BLOOD ORDERABLES Final Re sult [facility] [address] [place] [phone] [phone] * (ABNORMAL) Lipid Panel, Standard (08/22/2023 8:32 AM EDT) Triglycerides 83 <150 mg/dL [facility] Comment:Desirable Triglyceri de: less than 150 mg/dLBorderline High Triglyceride 150-199 mg/dLHigh Triglyceride: 200-499 mg/dLVery High Triglyceride: greater than or equal to 5OO mg/dL Cholesterol 186 <200 mg/dL [facility] Comment:Desirable Cholestero l: less than 200 mg/dLBorderline High Cholesterol: 200-239 mg/dLHigh Cholesterol: greater than 239 mg/dL LDL Cholesterol Calculated 125(H) <100 mg/dL [facility] Comment:Desirable LDL: less than 100 mg/dLNear Optimal/Above Optimal LDL: 110- 129 mg/dLBorderline High LDL: 130-159 mg/dLHigh LDL: 160-189 mg/dLVery High LDL: greater than or equal to 190 mg/dL HDL Cholesterol 45 >40 mg/dL [facility] Comment:Desirable HDL: great er than 40 mg/dL Note: This HDL assay may give artificially low results in patients with liver disease. Blood Venous blood specimen / Unknown 08/22/2023 8:32 AM EDT 08/22/2023 8:32 AM EDT us Danna Dinh MD LAB BLOOD ORDERABLES Final Re sult [facility] [address] [place] [phone] * THINPREP TIS PAP (02/19/2021 1:16 PM EDT) Clinical Information: None given [facility] COMMENT SEE COMMENT FOUNDATI ON [...] has been evaluated with computer assisted technology. [facility] Solutions Architect Consultant : SEE COMMENT [facility] Comment: CMG, CT(ASCP) CT screening location: [address] ??[address] Infection Shift in vaginal dameon suggestive of bacterial vaginosis. [facility] Interpretation/R esult: Negative for intraepithelial lesion or malignancy. [facility] LMP: NONE GIVEN [facility] Prev. BX: NONE GIVEN [facility]OUND[facility] Prev. PAP: NONE GIVEN FOUNDATI ON LAB SYSTEM SOURCE: None given [facility] Statement Of Adequacy: SEE COMMENT [facility] Comment: Satisfactory for evaluation. Endocervical/transformation zone component present. Age and/or menstrual status not provided 02/19/2021 1:16 PM EDT Danna Dinh MD LAB PATHOLOGY ORDERABLES Yeny l Result Performing Organization Address [facility] Co de Phone Number [facility] [address] * HPV mRNA E6/E7 (02/19/2021 1:16 PM EDT) HPV nRNA E6/E7 Not Detected Not Detected [facility] Comment: Methodology: Electrician Helper Powerhouse-Mediated Amplification This assay detects E6/E7 viral messenger RNA (mRNA) from 14 high-risk HPV types (16,18,31,33,35,39,45,51,52,56,58,59,66,68). ? The analytical performance characteristics of this assay have been determined by [employer]. The modifications have not been cleared or approved by the FDA. This assay has been validated pursuant to the CLIA regulations and is used for clinical purposes. ?? For additional information, please refer to http://education.[employer]/faq/IYG610d4 (This link if provided for information/ educational purposes only.) 02/19/2021 1:16 PM EDT Danna Dinh MD LAB BLOOD ORDERABLES Final Re sult Performing Organization Address [facility] Co de Phone Number [facility] [address] from Last 3 Months or Most Recently Relevant to Health Maintenance Insurance [facility] C3 Care Teams Gun Numberer Relationship Specialty Start Date End Date Danna Dinh MD [address] [place] [address] [place] [address] PCP - General Family Medicine 12/21/20
--- OUTSIDE RECORDS SUMMARY | 2025-02-16 23:38 | XMS_ITS | Encounter Summary ---
Author Organization [employer] Address [address] [facility] [address] [place] [address] Care Team Providers Care Director Market Intelligence Name Role Phone Danna Dinh MD Primary Care Provider [phone] Encounter Details Date Type Department Care Team (Late st Contact Info) Description 02/16/2025 Orders Only [facility] External Provider, [facility] Social History Tobacco Use Types Packs/Day Years [...] VIEWS Routine 02/16/2025 10:0 9 PM EDT STREP A NUCLEIC ACID Routine 02/16/2025 9:41 PM EDT SARS COV2/INFLUENZA A/B AND RSV RNA QL NAAT Routine 02/16/2025 9:41 PM EDT documented in this encounter Results * XR Chest 2 Views (02/16/2025 10:09 PM EDT) Anatomical Region Laterality Modality Chest Radiographic Bisi ging 02/16/2025 10:0 9 PM EDT Narrative 02/16/2025 10:11 PM EDT ? [facility] ?[address] ?[place] [address] ?XRay Report ? Signed ? Patient: Barb Nguyen ?MR#: ?? [id number] ? : 1975 ?Acct:[id number] ? Age/Sex: 49 / F ?ADM Date: 02/16/25 ? Loc: HO.ED ? Attending Dr: ? Ordering Physician: Generic ED Physician ?? Date of Service: 02/16/25 ?? Procedure(s): XR chest 2V ?? Accession Number(s): [id number] ? cc: Generic ED Physician; Danna Dinh MD ? CLINICAL HISTORY: cough, sob ? 2 view chest x-ray ? Comparison: CR/SR - XR CHEST - 05/03/22 21:35 EDT ? Findings: ?? [...] ? DD/ 08 ? TD/TT: 02/16/252208 ? Claim Examiner: ? Procedure Note Donotuseinterpreter, Image - 02/16/[address] [address] XRay Report Signed Patient: Barb NguyenMR#: [id number] : 1975Acct:[id number] Age/Sex: 49 / FADM Date: 02/16/25 Loc: .ED Attending Dr: Ordering Physician: Generic ED Physician Date of Service: 02/16/25 Procedure(s): XR chest 2V Accession Number(s): [id number] cc: Generic ED Physician; Danna Dinh MD [...] in OV> 02/16/252209 DD/ 08 TD/TT: 02/16/252208 Claim Examiner: [facility] External Provider IMG XR PROCEDURES Edited Result - Final * SARS-CoV-2 RNA, Influenza A/B, and RSV RNA, Ql NAAT (02/16/2025 9:41 PM EDT) Influenza A PCR NEGATIVE Negative [facility] Influenza B PCR NEGATIVE Negative [facility] Resp Syncy Virus RNA Qual PCR NEGATIVE Negative [facility] SARS COV2 PCR NEGATIVE Negative [facility] Comment:All test results mus t be [...] use by authorized laboratories.Testing performed on the [employer] GeneXpert utilizingreal-time RT-PCR.All SARS CoV2 and positive influenza A/B results arereported to [facility]. 02/16/2025 9:41 PM EDT 02/16/2025 9:45 PM EDT [employer] External Data Provider LAB MICROBIOLOGY - GENERAL ORDERABLES Final Result Performing Organization Address [facility] de Phone Number [facility] [address] [place] [phone] * Strep A Nucleic Acid (02/16/2025 9:41 PM EDT) IDNOW SERIAL# [id number] [facility] Strep A Nucleic Acid Negative Negative [facility] Comment:All test results mus t [...] GENERAL ORDERABLES Final Result Performing Organization Address [facility] Co de Phone Number [facility] [address] [place] [phone] documented in this encounter Visit Diagnoses Not on filedocumented in this encounter Additional Health Concerns Assessment Noted Time PHQ-9 Depression Total Score: 2 11/05/19 23 2:50 PM EST documented as of this encounter Care Teams Director Market Intelligence Relationship Specialty Start Date End Date Danna Dinh MD [address] [place] [phone] PCP - General Family Medicine 12/21/20 documented as of this encounter
--- OUTSIDE RECORDS SUMMARY | 2025-02-16 23:38 | XMS_ITS | Encounter Summary ---
Author Organization [employer] Address [address] [facility] [address] [place] [address] Care Team Providers Care Director Of Donor Relations Name Role Phone Danna Dinh MD Primary Care Provider [phone] Reason for Visit * Reason Onset Date Comments Med Refill 04/19/2024 Encounter Details Date Type Department Care Team ([facility] Contact Info) Description 04/19/2024 Telephone [facility] CH[facility] MED & PEDS [address] [place], [place] [phone] Danna Dinh MD [address] [place] [address] Med Refill Social History Tobacco Use Types [...] 30 MG tablet To be sent to: [facility]/pharmacy #[id number] [place] [address] documented in this encounter Plan of Treatment Not on file documented as of this encounter Visit Diagnoses Not on filedocumented in this encounter Additional Health Concerns Assessment Noted Time PHQ-9 Depression Total Score: 2 11/05/19 23 2:50 PM EST documented as of this encounter Care Teams Director Of Donor Relations Relationship Specialty Start Date End Date Danna Dinh MD [address] [place] [address] PCP - General Family Medicine 12/21/20 documented as of this encounter
--- OUTSIDE RECORDS SUMMARY | 2025-02-16 23:38 | XMS_ITS | Encounter Summary ---
Author Organization [employer] Address [address] [place] [address] [address] [place] [address] Care Team Providers Care Director Of User Experience Name Role Phone Danna Dinh MD Primary Care Provider [phone] Reason for Visit * Reason Onset Date Comments Nurse Triage 05/08/2023 Encounter Details Date Type Department Care Team ([facility] st Contact Info) Description 05/08/2023 Telephone C [facility] [address] [place], [place] [phone] Danna Dinh MD [address] [place] [address] Nurse Triage Social History Tobacco Use Types [...] 05/08/2023 10:32 AM EDT Triage call with [employer] Tech [id number] Pt reports a rash which comes this time every year. Pt reports it is a red, smooth rash over bilateral shoulders, arms and chest. Pt also has some rash on left thigh. Rash started last week and continues to be itchy and spreads. Pt is offered apt in [facility] but unable to go at times available. Pt is advised to come to [facility] today and agrees. Home care is reviewed [...] accepted this outcome Please contact pt at [phone] (Georgian speaker) documented in this encounter Plan of Treatment Not on file documented as of this encounter Visit Diagnoses Not on filedocumented in this encounter Additional Health Concerns Assessment Noted Time PHQ-9 Depression Total Score: 2 11/05/19 23 2:50 PM EST documented as of this encounter Care Teams Director Of User Experience Relationship Specialty Start Date End Date Danna Dinh MD [address] [place] [address] PCP - General Family Medicine 12/21/20 documented as of this encounter
--- NOTE | 2025-02-17 00:21 | ED_ITS ---
HPI - URI/Sore Throat General Chief Complaint: Upper Respiratory Symptoms Stated Complaint: asthma Time Seen by Provider: 02/17/25 00:12 Source: patient Mode of arrival: ambulatory Limitations: no limitations History of Present Illness ED Provider: Dr. Aleena Kumar HPI Narrative: Patient comes to the emergency room complaining of cough for 1 and half weeks. Patient states that she has a sore throat. Patient reports 3 of childhood asthma, but now she has been having more intermittent wheezing. Related Data Home Medications ?Medication ?Instructions ?Recorded ?Confirmed mirtazapine 15 mg tablet 15 mg PO BEDTIME 09/12/21 12/30/24 vitamin B comp and C no.3 15 mg-10 1 cap PO DAILY 09/12/21 12/30/24 mg-50 mg-5 mg-300 mg capsule (B Complex Plus Vitamin C) fluticasone propionate 50 2 spray intranasal DAILY 02/23/24 12/30/24 mcg/actuation nasal spray,suspension lisinopril 30 mg tablet 30 mg PO QAM 02/23/24 12/30/24 loratadine 10 mg tablet 10 mg PO DAILY 02/23/24 12/30/24 rosuvastatin 20 mg tablet 20 mg PO QAM 02/23/24 12/30/24 Previous Rx's ?Medication ?Instructions ?Recorded ibuprofen 600 mg tablet 600 mg PO Q6H #60 tabs 02/27/21 cholecalciferol (vitamin D3) 50 50 mcg PO DAILY 90 days #90 caps 03/01/21 mcg (2,000 unit) capsule blood-glucose meter (FreeStyle #1 ea 07/11/21 Bedford Lite kit) lancets 28 gauge (FreeStyle #100 ea 07/11/21 Lancets) albuterol sulfate 90 mcg/actuation 1 inh inhalation QID PRN shortness 05/04/22 aerosol inhaler of breath or wheezing #8.5 grams bisacodyl 5 mg tablet,delayed 20 mg (4 x 5 mg) PO ONCE 1 day #4 02/26/24 release (Dulcolax (bisacodyl)) tabs polyethylene glycol 3350 17 238 g PO ONCE #238 grams 02/26/24 gram/dose oral powder (Miralax) blood sugar diagnostic (FreeStyle #100 ea 05/25/24 Lite Strips) blood-glucose sensor (FreeStyle #2 ea 05/25/24 Macey 3 Sensor device) blood-glucose sensor (FreeStyle #2 ea 05/25/24 Macey 3 Sensor device) blood-glucose,painting manager,cont #1 ea 05/25/24 (FreeStyle Macey 3 Henderson) insulin glargine U-300 conc 300 6 unit (0.02 mL) subcut BEDTIME 30 11/03/24 unit/mL (1.5 mL) subcutaneous pen days #1.5 mL (Toujeo SoloStar U-300 Insulin) dulaglutide 1.5 mg/0.5 mL 1.5 mg (0.5 mL) subcut QWEEK 28 12/30/24 subcutaneous pen injector days #2 mL benzonatate 100 mg capsule 100 mg PO TID PRN cough #12 caps 02/17/25 prednisone 50 mg tablet 50 mg PO DAILY #4 tabs 02/17/25 Allergies Allergy/AdvReac Type Severity Reaction Status Date / Time No Known Allergies Allergy Verified 02/16/25 21:20 [No Known Allergies*] Review of Systems Review of Systems: Constitutional : No Weight loss, No Fever, No Chills, No Night Sweats, No Fatigue, No Malaise ENT/Mouth : No Hearing loss, No Ear Pain, complaining of nasal congestion, No Hoarseness, complaining of sore throat, No Rhinorrhea, No Swallowing Difficulty Eyes: No Eye Pain, No Swelling, No Redness, No Foreign Body, No Discharge, No Vision Changes Cardiovascular : No Chest Pain, No SOB, No Dyspnea on Exertion, No Orthopnea, No Edema, No Palpitations Respiratory : Complaining of productive cough, complaining of Wheezing, No Smoke Exposure, No Dyspnea Gastrointestinal : No Nausea, No Vomiting, No Diarrhea, No Constipation, No abdominal Pain, No Hematochezia, No Melena Genitourinary : no irregular bleeding, No Dysuria, No Urinary Frequency, No H ematuria, No Urinary Incontinence, No Urgency, No Flank Pain, No Urinary Flow Changes, No Hesitancy Musculoskeletal : No joint pain, No Myalgias, No Joint Swelling Skin : No Skin Lesions, No rash Neuro : No Weakness, No Numbness, No Paresthesias, No Loss of Consciousness, No Dizziness, No Headache Psych : No Anxiety/Panic, No Depression, No SI/HI/AH/VH, No Social Issues, Heme/Lymph: No Bruising, No Bleeding,No Lymphadenopathy Endocrine : No Polyuria, No Polydipsia, No Temperature Intolerance [facility] Past Medical History Medical History Type 2 diabetes mellitus Family history of early CAD Hypertension Vitamin D deficiency Dyslipidemia Microalbuminuria due to type 2 diabetes mellitus Ketosis-prone diabetes mellitus Surgical History Hx of section Family History Family History Father Diabetes mellitus Cancer Mother No problems noted. Sister Myocardial infarction Social History Social History Household Members: Children Household Members Other:: son and daughter Alcohol intake: never Patient Tobacco Use Status: Current someday Tobacco user Advance Directives: No Advance Directives Information Provided: Yes Do you have a plan to hurt others: No Plan Physical Exam Vital Signs: Vital Signs: Last Vital Signs Temp 97.9 F 02/16/25 21:17 Pulse 82 02/16/25 21:17 Resp 18 02/16/25 21:17 BP 139/83 02/16/25 21:17 Pulse Ox 100 02/16/25 21:17 O2 Del Method Room Air 02/16/25 21:17 BMI result Body Mass Index 22.6 Medical Decision Making Medical Decision Making [facility] Narrative: I discussed the serology reports with the patient, patient tested negative for influenza a, B, RSV, COVID and strep Chest x-ray negative Patient likely has bronchitis Patient was given a dose of Tessalon and prednisone here in the emergency room. Patient is not wheezing at all Differential Diagnosis Differential Diagnoses: The differential diagnosis associated with the presentation includes (Pneumonia, bronchitis, asthma exacerbation, viral URI) Lab Data [facility] Lab Attestation statement: I reviewed the patient's lab results. Labs: Lab Results 02/16/25 Range/Units 21:41 Influenza Type A (PCR) NEGATIVE (Negative) Influenza Type B (PCR) NEGATIVE (Negative) RSV RNA Qual (PCR) NEGATIVE (Negative) SARS-CoV-2 RNA (RT-PCR) NEGATIVE (Negative) S. pyogenes GrpA JARROD Negative (Negative) Independent Interpretation I performed an independent interpretation of an: Plain X-Ray Radiology Impression Discussion of test interpretation with radiology: I have reviewed the radiologist's reading. Radiologist Impression: No consolidation or effusion. Heart size is normal. No acute fracture. IMPRESSION: 1. No acute findings. Discharge Plan Discharge Clinical Impression: URI, acute Patient Disposition: Home, Self-Care Instructions: Upper Respiratory Infection (ED) Additional Instructions: Please follow-up with your primary care physician tomorrow. If you have any worsening or new symptoms, please return to the emergency room or call 911 Prescriptions: New prednisone 50 mg tablet 50 mg PO DAILY Qty: 4 0RF benzonatate 100 mg capsule 100 mg PO TID PRN (Reason: cough) Qty: 12 0RF No Action (DME) blood-glucose meter [FreeStyle Bedford Lite] Kit See Rx Instructions .ROUTE .MEDSUPPLY Qty: 1 0RF Rx Instructions: 3x/day (DME) lancets [FreeStyle Lancets] 28 gauge misc See Rx Instructions .ROUTE .MEDSUPPLY Qty: 100 11RF Rx Instructions: Three times a day Touemily SoloStar U-300 Insulin 300 unit/mL (1.5 mL) insulin pen 6 unit subcut BEDTIME 30 Days Qty: 1.5 2RF ibuprofen 600 mg tablet 600 mg PO Q6H Qty: 60 0RF albuterol sulfate 90 mcg/actuation HFA aerosol inhaler 1 inh inhalation QID PRN (Reason: shortness of breath or wheezing) Qty: 8.5 0RF mirtazapine 15 mg tablet 15 mg PO BEDTIME B Complex Plus Vitamin C 13-38-72-5-300 mg capsule 1 cap PO DAILY Rx Instructions: give with food (meal/snack) cholecalciferol (vitamin D3) 50 mcg (2,000 unit) capsule 50 mcg PO DAILY 90 Days Qty: 90 1RF lisinopril 30 mg tablet 30 mg PO QAM rosuvastatin 20 mg tablet 20 mg PO QAM fluticasone propionate 50 mcg/actuation spray,suspension 2 spray intranasal DAILY loratadine 10 mg tablet 10 mg PO DAILY bisacodyl [Dulcolax (bisacodyl)] 5 mg tablet,delayed release (DR/EC) 20 mg PO ONCE 1 Days Qty: 4 0RF Rx Instructions: take 4 tabs at noon the day before your colonoscopy polyethylene glycol 3350 [Miralax] 17 gram/dose powder 238 g PO ONCE Qty: 238 0RF Rx Instructions: As directed by gastroenterology department at [facility] ([facility] [place] [place]) FreeStyle Lite Strips Strip See Rx Instructions .ROUTE .MEDSUPPLY Qty: 100 11RF Rx Instructions: As directed three times a day ([facility] [place] [place]) FreeStyle Macey 3 Sensor Device See Rx Instructions .ROUTE .MEDSUPPLY Qty: 2 11RF Rx Instructions: As directed ([facility] [place] [place]) FreeStyle Macey 3 Sensor Device See Rx Instructions .ROUTE .MEDSUPPLY Qty: 2 11RF Rx Instructions: As directed ([facility] [place] [place]) FreeStyle Macey 3 Henderson Misc See Rx Instructions .ROUTE .MEDSUPPLY Qty: 1 0RF Rx Instructions: As directed dulaglutide 1.5 mg/0.5 mL pen injector 1.5 mg subcut QWEEK 28 Days Qty: 2 11RF Stand Alone Forms: Work/School Release Print Language: Prydeinig
[2025-02-17] MEDS: predniSONE 10 MG TABLET 50 MG PO (00:41)
[2025-02-17] MEDS: Benzonatate 100 MG CAPSULE PO (00:41)
[2025-02-17 00:46] VITALS: BP 109/61; PULSE 74; RESP 16; TEMP 36.5; O2SAT 99
== END 2025-02-17 00:47 | disposition home or self-care (01) ==
PROVIDERS: Emergency Provider Emergency Medicine; PCP Family Medicine
DX: J06.9 Acute upper respiratory infection, unspecified (principal); J02.9 Acute pharyngitis, unspecified; R05.9 Cough, unspecified; E11.9 Type 2 diabetes mellitus without complications; I10 Essential (primary) hypertension; E78.5 Hyperlipidemia, unspecified; F17.200 Nicotine dependence, unspecified, uncomplicated; Z79.4 Long term (current) use of insulin; Z79.02 Long term (current) use of antithrombotics/antiplatelets; Z79.899 Other long term (current) drug therapy; Z03.818 Encounter for observation for suspected exposure to other biological agents ruled out
CPT/HCPCS: 0241U; 71046; 87651; 99282; 99283

== ENCOUNTER → 2025-02-16 21:45 | Outpatient (BNV) | payer MEDICAID, SELFPAY | PROVIDERS: PCP Family Medicine; Visit Provider Radiology Diagnostic Radiology | DX: R05.9 Cough, unspecified (principal); R06.02 Shortness of breath | CPT/HCPCS: 71046 ==

== ENCOUNTER 2025-04-06 21:05 | Emergency (ER) | payer MEDICAID, SELFPAY ==
[2025-04-06 21:22] VITALS: BP 134/84; PULSE 89; RESP 16; TEMP 36.5; O2SAT 99; BMI 23.4
[2025-04-06 21:43] LABS: MANUAL DIFF FLAG NO
[2025-04-06 21:44] LABS: Basophils Absolute Auto 0.2 X10*3/uL (0.0-0.2); Basophils Percent Auto 1.3 % (0-2); Eosinophils Absolute Auto 0.3 X10*3/uL (0.0-0.4); Eosinophils Percent Auto 2.7 % (0-4); Hematocrit 33.6 % (37.0-47.0); Hemoglobin 11.8 g/dl (12.0-16.0); Imm Gran Abs Auto 0.02 X10*3/uL (0.00-0.03); Imm Gran Pct Auto 0.2 % (0.0-0.4); Lymphocytes Absolute Auto 4.3 X10*3/uL (1.2-4.9); Lymphocytes Percent Auto 37.4 % (20-40); Mean Corpuscular HGB Conc 35.1 g/dl (31.0-35.0); Mean Corpuscular Hemoglobin 31.5 pg (27.0-33.0); Mean Corpuscular Volume 89.6 fL (80.0-98.0); Mean Platelet Volume 10.5 fL (9.4-12.3); Monocytes Absolute Auto 0.6 X10*3/uL (0.1-1.2); Monocytes Percent Auto 5.5 % (2-11); Neutrophils Absolute Auto 6.1 x10*3/uL (2.0-8.3); Neutrophils Percent Auto 52.9 % (45-73); Platelet Count 406 X10*3/uL (160-400); Red Blood Count 3.75 X10*6/uL (4.20-5.50); Red Cell Distribution Width 12.8 % (11.0-16.0); White Blood Count 11.6 X10*3/uL (4.8-10.8)
[2025-04-06 21:46] LABS: Appearance Urine Clear; Color Urine Yellow; Glucose Urine UA Negative (Negative); Leukocyte Esterase Urine Negative (Negative); Nitrite Urine Negative (Negative); PH 5.5 (5.0-9.0); Specific Gravity - Urine >= 1.030 (1.005-1.025); UMIC TRIGGER UACC YES; Urine Blood Trace (Negative); Urine Ketones Trace mg/dL (Negative); Urine Protein Negative (Neg-Trace)
[2025-04-06 21:51] LABS: Bacteria Urine Trace (None Seen); Hyaline Casts Urine 0-2 /LPF (0-2); WBC Urine 0-5 /HPF (0-5)
[2025-04-06 22:13] LABS: Alanine Aminotransferase 18 U/L (0-31); Albumin Level 4.4 g/dL (3.5-5.0); Alkaline Phosphatase 62 U/L (39-117); Anion Gap 11 (12-20); Aspartate Amino Transferase 23 U/L (5-31); Bilirubin Total 0.2 mg/dL (0.0-1.0); Blood Urea Nitrogen 12 mg/dL (9-16); Calcium 9.2 mg/dL (8.4-10.2); Carbon Dioxide 21 mmol/L (22-29); Chloride 112 mmol/L (96-108); Creatinine Clr Calc Pharmacy 71.9; Estimated Glomerular Filt Rate > 60; Glucose Random 95 mg/dL (60-115); Potassium 3.5 mmol/L (3.3-5.1); Sodium 140 mmol/L (135-145); Total Protein 7.4 g/dL (6.5-8.0)
[2025-04-06 22:14] LABS: HCG Quantitative < 2 mIU/mL
== END 2025-04-07 00:21 | disposition left against medical advice (07) ==
PROVIDERS: Emergency Provider Emergency Medicine
DX: R10.2 Pelvic and perineal pain (principal); Z79.899 Other long term (current) drug therapy
CPT/HCPCS: 36415; 80053; 81001; 84702; 85025; 99281; 99282

== ENCOUNTER 2025-06-30 08:35 | Outpatient (REF) | payer MEDICAID, SELFPAY ==
[2025-06-30 09:00] LABS: MANUAL DIFF FLAG NO
[2025-06-30 09:15] LABS: Hematocrit 37.8 % (37.0-47.0); Hemoglobin 13.0 g/dl (12.0-16.0); Imm Gran Abs Auto 0.02 X10*3/uL (0.00-0.03); Imm Gran Pct Auto 0.2 % (0.0-0.4); Lymphocytes Absolute Auto 3.1 X10*3/uL (1.2-4.9); Mean Corpuscular HGB Conc 34.4 g/dl (31.0-35.0); Mean Corpuscular Hemoglobin 31.0 pg (27.0-33.0); Mean Corpuscular Volume 90.0 fL (80.0-98.0); NRBC Abs Auto 0.000 X10*3/uL (0.0-0.012); NRBC Pct Auto 0.0 /100WBC (0.0-0.2); Platelet Count 302 X10*3/uL (160-400); Red Blood Count 4.20 X10*6/uL (4.20-5.50); White Blood Count 8.6 X10*3/uL (4.8-10.8)
--- OUTSIDE RECORDS SUMMARY | 2025-06-30 09:34 | XMS_ITS | Clinical Summary ---
Author Organization [facility] Address [address] [place] [address] Care Team Providers Care Crisis Clinician Name Role Phone Unavailable Primary Care Provider Unavailabl e Source Comments PLEASE NOTE, if this patient is a minor, it may be UNLAWFUL to discuss sensitive information that is contained in these records (such as FAMILY PLANNING, MENTAL HEALTH or SUBSTANCE ABUSE) with the minor patient's parent or other person without the patient's specific authorization.[facility] Immunizations Immunization Administration Dates Next Due PFIZER COVID VACCINE, [...] Health Maintenance Due Date Last Done Comments Anxiety Screening 1976 Diabetes Screening 1975 HPV Screening 1976 Hepatitis [...] 2021 Fecal DNA 2021 Flexible Sigmoidoscopy 2021 [id number] ( season) 2024 021, 03/07/2021 Alcohol and Drug Screen 11/02/2024 Depression Annual Screen 11/02/2024 Imm-Influenza (#1) 2025 07/28/2019, 1 , 07/22/2016, Additional history exists Cervical Ablation/Cold-Knife Conization Discontinued Cervical Cryotherapy Discontinued Colposcopy Discontinued Endometrial Biopsy Discontinued Excision/Leep Discontinued HPV Genotyping Discontinued Vaginal Pap Discontinued Vulvoscopy Discontinued Insurance [address] [employer]
--- OUTSIDE RECORDS SUMMARY | 2025-06-30 09:34 | XMS_ITS | Encounter Summary ---
Author Organization [employer] Address [address] [place] [address] [address] [place] [address] Care Team Providers Care Inspection Clerk Name Role Phone Danna Dinh MD Primary Care Provider [phone] Reason for Visit * Reason Onset Date Comments Nurse Triage 05/08/2023 Encounter Details Date Type Department Care Team ([facility] st Contact Info) Description 05/08/2023 Telephone C [facility] [address] [place], [place] [phone] Danna Dinh MD [address] [place] [address] Nurse Triage Social History Tobacco Use Types [...] 05/08/2023 10:32 AM EDT Triage call with [employer] Inspector [id number] Pt reports a rash which comes this time every year. Pt reports it is a red, smooth rash over bilateral shoulders, arms and chest. Pt also has some rash on left thigh. Rash started last week and continues to be itchy and spreads. Pt is offered apt in [facility] but unable to go at times available. Pt is advised to come to [facility] today and agrees. Home care is reviewed [...] accepted this outcome Please contact pt at [phone] (Arabic speaker) documented in this encounter Plan of Treatment Not on file documented as of this encounter Visit Diagnoses Not on filedocumented in this encounter Additional Health Concerns Assessment Noted Time PHQ-9 Depression Total Score: 2 11/05/19 23 2:50 PM EST documented as of this encounter Care Teams Inspection Clerk Relationship Specialty Start Date End Date Danna Dinh MD [address] [place] [id number] PCP - General Family Medicine 12/21/20 documented as of this encounter
--- OUTSIDE RECORDS SUMMARY | 2025-06-30 09:34 | XMS_ITS | Encounter Summary ---
Author Organization [employer] Address [address] [place] [address] [address] [place] [address] Care Team Providers Care Field Installation Technician Name Role Phone Danna Dinh MD Primary Care Provider Encounter Details Date Type Department Care Team ([facility] st Contact Info) Description 10/21/2022 Orders Only [facility] [address] [place], [place] [phone] Danna Dinh MD [address] [place], [place] [phone] Hyperglycemia due to type 1 diabetes mellitus [...] Primary documented in this encounter Care Teams Field Installation Technician Relationship Specialty Start Date End Date Danna Dinh MD [address] [place], [place] [phone] PCP - General Family Medicine 12/21/20 documented as of this encounter
--- OUTSIDE RECORDS SUMMARY | 2025-06-30 09:34 | XMS_ITS | Encounter Summary ---
Author Organization [employer] Address [address] [place] [address] [address] [place] [address] Care Team Providers Care Public Service Representative Name Role Phone Danna Dinh MD Primary Care Provider [phone] Reason for Visit * Reason Onset Date Comments Med Refill 04/19/2024 Encounter Details Date Type Department Care Team ([facility] st Contact Info) Description 04/19/2024 Telephone [facility] [address] [place], [place] [phone] Danna Dinh MD [address] [place] [address] Med Refill Social History Tobacco Use Types [...] 30 MG tablet To be sent to: [facility]/pharmacy #[id number] [place] [address] - [address] [place] [address] documented in this encounter Plan of Treatment Not on file documented as of this encounter Visit Diagnoses Not on filedocumented in this encounter Additional Health Concerns Assessment Noted Time PHQ-9 Depression Total Score: 2 11/05/19 23 2:50 PM EST documented as of this encounter Care Teams Public Service Representative Relationship Specialty Start Date End Date Danna Dinh MD [address] [place] [address] PCP - General Family Medicine 12/21/20 documented as of this encounter
--- OUTSIDE RECORDS SUMMARY | 2025-06-30 09:34 | XMS_ITS | Encounter Summary ---
Author Organization [employer] Address [address] [facility] [address] [place] [address] Care Team Providers Care Water Trainer Name Role Phone Danna Dinh MD Primary Care Provider [phone] Reason for Visit * Reason Comments Med Refill Encounter Details Date Type Department Care Team ([facility] st Contact Info) Description 03/23/2025 [facility] [address] [place], [place] [phone] Danna Dinh MD [address] [place], [place] [phone] Social History Tobacco Use Types Packs/Day Years [...] documented as of this encounter Care Teams Water Trainer Relationship Specialty Start Date End Date Danna Dinh MD [address] [place] [id number] PCP - General Family Medicine 12/21/20 documented as of this encounter
--- OUTSIDE RECORDS SUMMARY | 2025-06-30 09:34 | XMS_ITS | Clinical Summary ---
Author Organization [employer] Address [address] [facility] [address] [place] [address] Care Team Providers Care Bed Worker Name Role Phone Danna Dinh MD Primary Care Provider Allergies No known active allergies Medications loratadine (Claritin) 10 MG tablet Take 1 tablet by mouth 1 (one) time each day. 2 Active fluticasone (Flonase Allergy Relief) 50 MCG/ACT nasal spray Administer 2 sprays into affected nostril(s) 1 (one) time each day. 2 Active Acetaminophen 500 MG capsule Take 1 capsule by mouth every 6 (six) hours. 2 Active glucose blood (FREESTYLE LITE) test strip 1 each every 4 (four) hours. 7 Active magnesium 200 MG tablet take 1 tablet PO qdaily 2 Active polyvinyl alcohol (Artificial Tears) 1.4 % ophthalmic solution 1 drop in each eye 2 to 3 times a day for dryness 7 Active escitalopram (Lexapro) 5 MG tablet Take 10 mg by mouth in the morning. 4 Active ibuprofen 600 MG tablet Take 1 tablet (600 mg) by mouth every 6 (six) hours. 60 tablet 4 Active GaviLAX 17 GM/SCOOP powder PLEASE SEE ATTACHED FOR DETAILED DIRECTIONS 4 Active [facility] Gentle Laxative 5 MG EC tablet TAKE 4 TABS AT NOON THE DAY BEFORE YOUR COLONOSCOPY 4 Active albuterol (2.5 MG/3ML) 0.083% nebulizer solution Take 3 mL by nebulization every 4 (four) hours if needed for wheezing. 75 mL 3 5 Active albuterol (ProAir HFA) 108 (90 Base) MCG/ACT inhaler Inhale 2 puffs every 4 (four) hours if needed for shortness of breath or wheezing. 18 g 1 5 Active norethindrone- ethinyl estradiol (Ortho-Novum , ,) 1-35 MG-MCG tablet Take 1 tablet by mouth Once per day. 28 tablet 11 5 Active hydrocortisone 2.5 % cream Apply pea sized amount to skin bid for 1 week 15 g 3 5 Active triamcinolone (Kenalog) 0.5 % ointment Apply topically 2 times daily. 90 g 5 Active nicotine (Nicoderm CQ) 14 MG/24HR patch PLACE 1 PATCH ON THE SKIN ONE TIME EACH DAY AT THE SAME TIME. 28 patch 5 Active Trulicity 1.5 MG/0.5ML solution auto-injector INJECT 1.5 MG (0.5 ML) SUBCUTANEOUSLY EVERY WEEK FOR 28 DAYS Active lisinopril (Prinivil) 20 MG tablet Take 1 tablet (20 mg) by mouth Once per day. 90 tablet 1 5 Active B Complex-Biotin -FA (Complex B-50 Prolonged Release) tablet controlled-rel ease Take 1 tablet by mouth Once per day. 90 tablet 1 5 Active cholecalcifero l (Vitamin D-3) 25 MCG (1000 UT) tablet Take 1 tablet (25 mcg) by mouth Once per day. 120 tablet 3 5 Active rosuvastatin (Crestor) 40 MG tablet Take 1 tablet (40 mg) by mouth in the morning. 90 tablet 1 5 Active Mometasone Furoate (Asmanex HFA) 200 MCG/ACT aerosol Inhale 2 Act (400 mcg) 2 times daily. 26 g 3 5 Active mirtazapine (Remeron) 15 MG tablet TAKE 1 TABLET BY MOUTH EVERYDAY AT BEDTIME 90 tablet 1 5 Active Active Problems Problem Noted Date Diagnosed Date Chronic cough 05/09/2025 Assessment & Plan (05/09/2025 11:36 AM EDT): Patient reports persistent cough for approximately three months, not fully resolved since previous bronchitis episode. Differential diagnoses include asthma exacerbation, ELIZABETH inhibitor-induced cough (patient on lisinopril), gastroesophageal reflux disease (GERD), or postnasal drip. Lung examination is clear. Plan: - Increase Flovent (fluticasone) inhaler to 200mcg, 2 puffs twice daily - Continue albuterol inhaler as needed - Decrease lisinopril from 30mg to 20mg daily due to low blood pressure - Order chest X-ray to rule out underlying lung pathology - Reassess in 8 weeks; if no improvement, consider sequential trials of GERD treatment or ENT evaluation for postnasal drip Other fatigue 05/08/2025 Heat rash 04/29/2024 Assessment & Plan (04/29/2024 [...] required at this time. Nicotine dependence 10/04/2022 Type 2 diabetes mellitus wit hout complication, without long-term current use of insulin 01/11/2018 Assessment & Plan (05/09/2025 11:36 AM EDT): Patient's blood glucose level is 83 mg/dL, which is within normal range. Recent medication changes have resulted in improved glucose control. Patient reports feeling better with current regimen. Plan: - Discontinue insulin therapy - Continue Trulicity (GLP-1 receptor agonist) - Encourage regular exercise, aiming for more than once per week - Order labs - Patient to continue using home glucose monitor Assessment & Plan (02/19/2024 12:10 AM EDT): [...] Encounters Date Type Department Care Team Description 06/22/2025 Telephone [facility] [address] [place] [address] Danna Dinh MD No Show 06/14/2025 Telephone [facility] [address] [place] [address] Danna Dinh MD CHART PREP 05/21/2025 Refill [facility] [address] [place] [address] Yumiko Jones MD 05/08/2025 1:00 PM EDT Office Visit [facility] [address] [place] [address] Danna Dinh MD Other fatigue (Primary Dx); Hyperglycemia due to type 1 diabetes mellitus ([facility]); Colon cancer screening; Acute intractable tension-type headache; Type 2 diabetes mellitus without complication, without long-term current use of insulin ([facility]); Chronic cough 05/08/2025 Travel 04/28/2025 Patient Outreach [facility] [address] [place], [place] [phone] Danna Dinh MD Pre-visit Planning (SDOH screening negative and Tobacco screening positive) 04/28/2025 Refill [facility] [address] [place] [address] Danna Dinh MD 04/11/2025 Refill [facility] [address] [place] [address] Danna Dinh MD Hypertension, unspecified type 04/05/2025 8:30 AM EDT Telemedicine [facility] [address] [place] [address] Yumiko Jones MD Insulin Dependent Diabetes Mellitus (Primary Dx); Encounter for contraceptive management, unspecified type 04/05/2025 Travel from Last 3 Months Immunizations Immunization Administration Dates Next Due Hep B, adult 09/08/2014,04/24/2014,01/27/2014 Influenza Injectable Quadriv alant Preservative Free IIV4 MDCK 07/28/2019 Influenza injectable quadriv alent IIV4 with preservative 07/22/2016 Influenza injectable quadriv alent preservative free 08/11/2018 Influenza, IIV3, injectable 09/08/2014 Influenza, Unspecified 07/29/2013 Influenza, live, intranasal 07/29/2013 Pfizer Covid-19 Vaccine 12+ 11/20/2021,,03/07/2021 Pneumococcal Polysaccharide PPSV23 09/04/2016 Social History Tobacco Use Types Packs/Day Years Used Date Smoking Tobacco: Former Cigarettes Passive Smoke Exposure: Never Smokeless Tobacco: Never Tobacco Cessation:Counseling Given: Not Answered Alcohol Use Standard Drinks/Week Comments Never 0 (1 standard drink = 0.6 oz pur e alcohol) Depression Answer Date Recorded Patient Health Questionnaire-9 Score 4 05/08/2025 Patient Health Questionnaire-9 Score 4 05/08/2025 Last PHQ-9: Questionnaire Data Not on file 0 05/08/2025 Housing Stability Answer Date Recorded What is your housing situation today? I have [place] 04/28/[address] you li ve. Do you have problems with any of the following? None of the above 04/28/2025 Food Insecurity Answer Date Recorded Within the past 12 months, y ou worried that your food would run out before you got money to buy more: Never True 04/28/2025 Within the past 12 months,th e food you bought just didn't last and you didn't have enough money to get more: Never True Transportation Answer Date Recorded In the past 12 months, has l ack of transportation kept you from medical appts, meetings, work or from getting things needed for daily living? No 04/28/2025 Utilities Answer Date Recorded In the past 12 months, has t he electric, gas, oil or water company threatened to shut off services in your home? No 04/28/2025 Depression Answer Date Recorded Patient Health Questionnaire-2 Score 1 05/08/2025 Internet Access Answer Date Recorded Internet Access Q1 Yes 04/28/2025 Internet Access Q2 Not on file 04/28/2025 Comments Unknown Sex and Gender Information Value Date Recorded Sex Assigned at Female 09/01/2022 10:16 AM EDT Legal Sex Female 10:16 AM EDT Gender Identity Female 09/01/2022 10:16 AM EDT Sexual Orientation Choose not to disclose 2021 10:16 AM EDT Last Filed Vital Signs Vital Sign Reading Time Taken Comments Blood Pressure 108/75 05/08/2025 1:13 PM EDT Pulse 88 05/08/2025 1:13 PM EDT Temperature 37.1 C (98.8 F) 05/08/2025 1:13 PM EDT Respiratory Rate 18 05/08/2025 1:13 PM EDT Oxygen Saturation 99% 05/08/2025 1:13 PM EDT Inhaled Oxygen Concentration - - Weight 61.7 kg (136 lb) 05/08/2025 1:13 PM EDT Height 166 cm (5' 5.35 ) 05/08/2025 1:13 PM EDT Body Mass Index 22.39 05/08/2025 1:13 PM EDT Plan of Treatment Health Maintenance Due Date Last Done Comments CT Colonography 1975 Colonoscopy 1975 Colorectal Cancer Screening 1975 FIT DNA/Cologuard 1975 FIT 1975 FOBT 1975 Sigmoidoscopy 1975 Family Planning (PISQ) 1991 COVID-19 Vaccine ( season) 2024 11/20/2021, 03/28/2021, 03/07/2021 Diabetes: Foot Exam 08/03/2024 08/03/2023, 08/03/2023, 08/03/2023, Additional history exists Lipid Panel 08/22/2024 08/22/2023, 12/2022, 03/04/2021 Influenza Vaccine (#1) 2025 9, 08/11/2018, 07/22/2016, Additional history exists Diabetes: Hemoglobin A1C 11/08/2025 025, 12/30/2024, 02/18/2024, Additional history exists Cervical Cancer Screening 02/19/2026 HPV/Cotest 02/19/2026 02/19/2021 Pap Smear 02/19/2026 02/19/2021 Mammogram 02/23/2026 02/24/2024, 04/2 01/2021, 01/27/2019, Additional history exists SDOH Screening 04/28/2026 04/28/2025 Alcohol/Substance Use Screening 05/08/2026 05/08/2025 DTaP/Tdap/Td Vaccines (1 - Tdap) 05/08/2026 Postponed from 1995 (Patient Refused) Depression Screening 05/08/2026 05/08/2025, 05/08/20 25 Disability Screening 05/08/2026 05/08/2025 Pneumococcal Vaccine: Pediatrics (0 to 5 Years) and At-Risk Patients (6 to 49) Years (2 of 2 - PCV) 05/08/2026 09/04/2016 Postponed from 09/04/2017 (Patient Refused) Tobacco Screening 05/08/2026 05/08/2025 Zoster Vaccines (1 of 2) 2026 Eye [...] patient's age to complete this topic Meningococcal B Vaccine Aged Out No l onger eligible based on patient's age to complete [...] Procedure Name Priority Date/Time Associated Diagnosis Comments CBC WITH AUTO DIFFERENTIAL Routine 06/30/2025 8:58 AM EDT Other fatigue POCT GLYCATED HEMOGLOBIN, TOTAL Routine 05/08/2025 1:15 PM EDT Hyperglycemia due to type 1 diabetes mellitus (CMS/HCC) POCT GLUCOSE Routine 05/08/2025 1:14 PM EDT Hyperglycemia due to type 1 diabetes mellitus (CMS/HCC) BI MAMMOGRAM SCREENING TOMOSYNTHESIS BILATERAL Routine 02/24/2024 10:20 AM EDT HEPATITIS C ANTIBODY Routine 08/22/2023 8:32 AM [...] Recently Relevant to Health Maintenance Results * (ABNORMAL) CBC auto differential (06/30/2025 8:58 AM EDT) White Blood Count 8.6 4.8 - 10.8 X10*3/uL [facility] Red Blood Count 4.20 4.20 - 5.50 X10*6/uL [facility] Hemoglobin 13.0 12.0 - 16.0 g/dl [facility] Hematocrit 37.8 37.0 - 47.0 % [facility] Mean Corpuscular Volume 90.0 80.0 - 98.0 fL [facility] Mean Corpuscular Hemoglobin 31.0 27.0 - 33.0 pg [facility] Mean Corpuscular HGB Conc 34.4 31.0 - 35.0 g/dl [facility] Red Cell Distribution Width 12.4 11.0 - 16.0 % [facility] Platelet Count 302 160 - 400 X10*3/uL [facility] Mean Platelet Volume 11.0 9.4 - 12.3 fL [facility] Neutrophils Percent Auto 51.5 45 - 73 % [facility] Imm Gran Pct Auto 0.2 0.0 - 0.4 % [facility] Lymphocytes Percent Auto 36.3 20 - 40 % [facility] Monocytes Percent Auto 6.3 2 - 11 % [facility] Eosinophils Percent Auto 4.2(H) 0 - 4 % [facility] Basophils Percent Auto 1.5 0 - 2 % [facility] NRBC Pct Auto 0.0 0.0 - 0.2 /100WBC [facility] Neutrophils Absolute Auto 4.4 2.0 - 8.3 x10*3/uL [facility] Imm Gran Abs Auto 0.02 0.00 - 0.03 X10*3/uL [facility] Lymphocytes Absolute Auto 3.1 1.2 - 4.9 X10*3/uL [facility] Monocytes Absolute Auto 0.5 0.1 - 1.2 X10*3/uL [facility] Eosinophils Absolute Auto 0.4 0.0 - 0.4 X10*3/uL [facility] Basophils Absolute Auto 0.1 0.0 - 0.2 X10*3/uL [facility] NRBC Abs Auto 0.000 0.0 - 0.012 X10*3/uL [facility] Blood Venous blood specimen / Unknown 06/30/2025 8:58 AM EDT 06/30/2025 8:58 AM EDT Danna Dinh MD LAB BLOOD ORDERABLES Final Re sult [facility] [address] [place] [phone] * POCT A1C (05/08/2025 1:15 PM EDT) Hemoglobin A1C 5.5 4.0 - 5.7 % QC Media Lot # Comment:[id number] Lot# Expiration Date Comment:11/03/2026 Blood 05/08/2025 1:15 PM EDT Danna Dinh MD POINT OF CARE TEST ENTER/EDIT ORDERABLES Final Result * POCT glucose manually resulted (05/08/2025 1:14 PM EDT) Glucose Blood, POC 83 60 - 200 mg/dL QC Media Lot # Comment:[id number] Lot# Expiration Date Comment:08/31/2025 Blood Capillary blood specimen / Unknown 05/08/2025 1:14 PM EDT Danna Dinh MD POINT OF CARE TEST ENTER/EDIT ORDERABLES Final Result * BI Mammogram Screening Tomosynthesis Bilateral (02/24/2024 10:20 AM EDT) Anatomical Region Laterality Modality Breast Bilateral Mammography 02/24/2024 10:2 0 AM EDT Narrative 03/16/2024 11:29 AM EDT [facility] [address] [place] [address] Mammography Report Signed Patient: Barb Nguyen MR#: [id number] : 1975 Acct:[id number] Age/Sex: 48 / F ADM Date: 02/24/24 Loc: HO.MAMMO Attending Dr: Danna Dinh MD Ordering Physician: Danna Dinh MD Results: 1Nega tive Date of Service: 02/24/24 Follow Up: 1 Year From Orig inal Mammogram Procedure(s): MM tomosynthesis screening BI Accession Number(s): [id number] cc: Danna Dinh MD EXAMINATION: MM SCREENING [...] in OV> 03/16/24 1126 DD/ 1020 TD/TT: Eviscerator: Procedure Note Donotuseinterpreter, Image - 03/16/2024 [facility] [address] [place] [address] Mammography Report Signed Patient: Barb NguyenMR#: [id number] : 1975Acct:[id number] Age/Sex: 48 / FADM Date: 02/24/24 Loc: HO.MAMMO Attending Dr: Danna Dinh MD Ordering Physician: Danna Dinh MDResults: 1Nega tive Date of Service: 02/24/24Follow Up: 1 Year From Orig inal Mammogram Procedure(s): MM tomosynthesis screening BI Accession Number(s): [id number] cc: Danna Dinh MD EXAMINATION: MM SCREENING [...] in OV> 03/16/24 1126 DD/ 1020 TD/TT: Eviscerator: us Danna Dinh MD IMG BI PROCEDURES Final Resul t * Hepatitis C Ab (08/22/2023 8:32 AM EDT) Hepatitis C Antibody Nonreactive Nonreactive [facility] Comment:Antibodies to HCV no t detected; does not exclude early acuteHCV infection. Blood 08/22/2023 8:32 AM EDT 08/22/2023 8:32 AM EDT Danna Dinh MD LAB BLOOD ORDERABLES Final Re sult [facility] [address] [place] [phone] * HIV Ab/Ag ([facility]) (08/22/2023 8:32 AM EDT) HIV AB/AG Nonreactive Nonreactive [facility] Comment:HIV-1 p24 Ag and/or HIV-1/HIV-2 Ab not detected.A test result that is nonreactive does not exclude thepossibility of exposure to or infection with HIV-1 and/orHIV-2. Nonreactive results in this assay for individualswith prior exposure to HIV-1 and/or HIV-2 may be due toantigen and antibody levels that are below the limit ofdetection of this assay.[employer] HIV Ag/Ab Combo assay result andsupplemental assay results should be interpreted inconjunction with the patient's clinical presentation,history and other laboratory results. If the results areinconsistent with clinical evidence, additional testing issuggested to confirm the result. 08/22/2023 8:32 AM EDT 08/22/2023 8:32 AM EDT us Danna Dinh MD LAB BLOOD ORDERABLES Final Re sult Performing Organization Address [facility]/ZIP Co de Phone Number [facility] [address] [place] [address] [phone] * (ABNORMAL) Lipid Panel, Standard (08/22/2023 8:32 AM EDT) Triglycerides 83 <150 mg/dL [facility] Comment:Desirable Triglyceri de: less than 150 mg/dLBorderline High Triglyceride 150-199 mg/dLHigh Triglyceride: 200-499 mg/dLVery High Triglyceride: greater than or equal to 5OO mg/dL Cholesterol 186 <200 mg/dL [facility] Comment:Desirable Cholestero l: less than 200 mg/dLBorderline High Cholesterol: 200-239 mg/dLHigh Cholesterol: greater than 239 mg/dL LDL Cholesterol Calculated 125(H) <100 mg/dL [facility] Comment:Desirable LDL: less than 100 mg/dLNear Optimal/Above Optimal LDL: 110- 129 mg/dLBorderline High LDL: 130-159 mg/dLHigh LDL: 160-189 mg/dLVery High LDL: greater than or equal to 190 mg/dL HDL Cholesterol 45 >40 mg/dL [facility] Comment:Desirable HDL: great er than 40 mg/dL Note: This HDL assay may give artificially low results in patients with liver disease. Blood Venous blood specimen / Unknown 08/22/2023 8:32 AM EDT 08/22/2023 8:32 AM EDT us Danna Dinh MD LAB BLOOD ORDERABLES Final Re sult Performing Organization Address [facility]/ZIP Co de Phone Number [facility] [address] [place] [address] [phone] * THINPREP TIS PAP (02/19/2021 1:16 PM EDT) Clinical Information: None given [facility] COMMENT SEE COMMENT [facility] Comment: EXPLANATORY NOTE: The Pap is a screening test for cervical cancer. It is not a diagnostic test and is subject to false negative and false positive results. It is most reliable when a satisfactory sample, regularly obtained, is submitted with relevant clinical findings and history, and when the Pap result is evaluated along with historic and current clinical information. COMMENT: This Pap test has been evaluated with computer assisted technology. [facility] Stock Drier Tender : SEE COMMENT [facility] Comment: CMG, CT(ASCP) CT screening location: [place] [address] Infection Shift in vaginal dameon suggestive of bacterial vaginosis. [facility] Interpretation/R esult: Negative for intraepithelial lesion or malignancy. [facility] LMP: NONE GIVEN [facility] Prev. BX: NONE GIVEN [facility] Prev. PAP: NONE GIVEN [facility] SOURCE: None given [facility] Statement Of Adequacy: SEE COMMENT [facility] Comment: Satisfactory for evaluation. Endocervical/transformation zone component present. Age and/or menstrual status not provided 02/19/2021 1:16 PM EDT Danna Dinh MD LAB PATHOLOGY ORDERABLES Yeny l Result [facility] [address] * HPV mRNA E6/E7 (02/19/2021 1:16 PM EDT) HPV nRNA E6/E7 Not Detected Not Detected [facility] Comment: Methodology: Director Product Management-Mediated Amplification This assay detects E6/E7 viral messenger RNA (mRNA) from 14 high-risk HPV types (16,18,31,33,35,39,45,51,52,56,58,59,66,68). The analytical performance characteristics of this assay have been determined by [employer]. The modifications have not been cleared or approved by the FDA. This assay has been validated pursuant to the CLIA regulations and is used for clinical purposes. For additional information, please refer to http://education.[employer].Tweet Category/faq/TPM253w6 (This link if provided for information/ educational purposes only.) 02/19/2021 1:16 PM EDT us Danna Dinh MD LAB BLOOD ORDERABLES Final Re sult [facility] [address] from Last 3 Months or Most Recently Relevant to Health Maintenance Insurance [facility] C3 Care Teams Bed Worker Relationship Specialty Start Date End Date Danna Dinh MD [address] [place] [address] [place] [id number] PCP - General Family Medicine 12/21/20
[2025-06-30 09:57] LABS: Alanine Aminotransferase 27 U/L (0-31); Albumin Level 4.4 g/dL (3.5-5.0); Alkaline Phosphatase 67 U/L (39-117); Anion Gap 9 (12-20); Aspartate Amino Transferase 22 U/L (5-31); Blood Urea Nitrogen 16 mg/dL (9-16); Calcium 9.0 mg/dL (8.4-10.2); Carbon Dioxide 26 mmol/L (22-29); Chloride 111 mmol/L (96-108); Cholesterol 195 mg/dL (<200); Estimated Glomerular Filt Rate > 60; HDL Cholesterol 40 mg/dL (>40); Iron 57 mcg/dL (30-160); Percent Iron Saturation 18 % (15-50); Potassium 4.3 mmol/L (3.3-5.1); Sodium 142 mmol/L (135-145); Total Iron Binding Capacity 318 mcg/dL (228-428); Total Protein 7.2 g/dL (6.5-8.0); Triglycerides 107 mg/dL (<150); Unsaturated Iron Binding 261 ug/dL
[2025-06-30 10:08] LABS: Ferritin 14 ng/mL (10-250)
== END 2025-06-30 08:36 | disposition home or self-care (01) ==
LOC: HO.LAB 08:35
PROVIDERS: PCP Family Medicine; Referring Provider Physician Assistant; Visit Provider Family Medicine
DX: S91.202A Unspecified open wound of left great toe with damage to nail, initial encounter (principal); R53.83 Other fatigue; E11.65 Type 2 diabetes mellitus with hyperglycemia; I10 Essential (primary) hypertension; F17.200 Nicotine dependence, unspecified, uncomplicated; Z79.899 Other long term (current) drug therapy; Z79.85 Long-term (current) use of injectable non-insulin antidiabetic drugs
CPT/HCPCS: 36415; 80053; 80061; 82306; 82728; 82947; 83036; 83540; 84443; 85025; 99212

== ENCOUNTER 2025-06-30 11:23 | Outpatient (AMB) | payer MEDICAID, SELFPAY ==
--- NOTE | 2025-06-30 11:25 | MHC.OFFVIS ---
Vital Signs 06/30/25 11:26 Height 5 ft 6 in Weight 131 lb 6.328 oz BMI 21.2 BP 102/86 Blood Pressure Location Lt brachial Position Sitting Pulse 77 Pulse Source Pulse Oximeter Pulse Oximetry (%) 98 Oxygen Delivery Method Room Air Intake Visit Reasons: T2DM Intake Note: Patient present today for Type 2 Diabetes Mellitus Last Diabetic eye exam: 12/2024 Last Podiatry Visit: Doesn't have one Random Glucose: 124 mg/dl HgA1C: 5.9% Eligibility Analyst Required: Yes Eligibility Analyst Language: Loss Prevention Specialist Services: Eligibility Analyst Present Eligibility Analyst Name: Liane [id number] Information Interpreted: non-clinical & clinical Accompanied by: Self / Same As Patient Allergies No Known Allergies (No Known Allergies*) Allergy (Verified 06/30/25 11:31) Medication List - Last Reconciled 06/30/25 by Rach Hilario PA-C albuterol sulfate 90 mcg/actuation 1 inh inhalation QID PRN benzonatate 100 mg PO TID PRN bisacodyl (Dulcolax (bisacodyl)) 20 mg (4 x 5 mg) PO ONCE 1 day blood sugar diagnostic (FreeStyle Lite Strips) As directed three times a day blood-glucose meter (FreeStyle Dupont Lite kit) 3x/day blood-glucose sensor (FreeStyle Macey 3 Sensor device) As directed blood-glucose sensor (FreeStyle Macey 3 Sensor device) As directed blood-glucose,oil pumper,cont (FreeStyle Macey 3 [place]) As directed cholecalciferol (vitamin D3) 50 mcg PO DAILY 90 days dulaglutide 1.5 mg (0.5 mL) subcut QWEEK 28 days fluticasone propionate 50 mcg/actuation 2 sprays intranasal DAILY ibuprofen 600 mg PO Q6H lancets (FreeStyle Lancets) Three times a day lisinopril 20 mg PO QAM loratadine 10 mg PO DAILY mirtazapine 15 mg PO BEDTIME polyethylene glycol 3350 (Miralax) 238 grams PO ONCE prednisone 50 mg PO DAILY rosuvastatin 20 mg PO QAM vitamin B comp and C no.3 (B Complex Plus Vitamin C) 1 cap PO DAILY HPI HPI T2DM: Details: Patient is a 49-year-old female with a significant past medical history of type 2 diabetes, hypertension hyperlipidemia presenting today for a follow up. She has previously following with my colleague. Marvin: Last A1c was 5.8 and today it is 5.9. She is managed with Trulicity 1.5 mg weekly. She has been exercising in the [employer]. She has lost 10 lb. She is running about 1 hr a day. -while running she has noticed that her left great toenail is slightly lifted and damaged. It is a little sore. She states it initially looked bruised. CV: Blood pressure today in the office is 110/86. She is currently on lisinopril 30 mg. Cholesterol is managed with Crestor 20 mg. She has not been taking it consistently because she has been of this medication. She also normally takes it in the morning. [facility] Medical History Type 2 diabetes mellitus Family history of early CAD Hypertension Vitamin D deficiency Dyslipidemia Microalbuminuria due to type 2 diabetes mellitus Ketosis-prone diabetes mellitus Surgical History Hx of section Family History Father Diabetes mellitus Cancer Mother No problems noted. Sister Myocardial infarction Social History Household Members: Children Household Members Other:: son and daughter Alcohol intake: never Patient Tobacco Use Status: Current someday Tobacco user Physical Exam Vital Signs: Last Vital Signs Pulse 77 06/30/25 11:26 BP 102/86 06/30/25 11:26 Pulse Ox 98 06/30/25 11:26 Oxygen Delivery Method Room Air 06/30/25 11:26 BMI result Body Mass Index 21.2 Const Orientation/consciousness: patient oriented x3 Neck Neck: Yes no lymphadenopathy Thyroid: Thyroid normal Carotids: no bruits Resp Auscultation: clear to auscultation bilaterally Cardio Rate: regular rate Rhythm: regular rhythm Heart sounds: S1 normal heart sound present and S2 normal heart sound present Peripheral pulses: dorsalis pedis present Neuro General: patient oriented x3, gait normal and no focal motor deficits Extrem Other: Monofilament sensation intact bilaterally. Vibratory sensation intact bilaterally. Skin intact. The left great toenail is slightly lifted General: Yes normal to inspection Results AMB Hemoglobin A1c AMB Hemoglobin A1c 5.9 % Last Edit by MADDISON Andino on 06/30/25 11:47 Results Reviewed Results Reviewed: Laboratory Last Values Glucose (Clinic) 124 mg/dL (60-115) H 06/30/25 11:34 Laboratory Tests 08/31/20 12/30/24 06/30/25 08:38 10:52 08:58 Creatinine 0.82 Estimated GFR > 60 Random Glucose 102 Hgb A1c (Clinic) 5.8 AST 22 ALT 27 Triglycerides 107 Cholesterol 195 LDL Cholesterol, Calc 134 H HDL Cholesterol 40 L Urine Creatinine 288.06 Urine Microalbumin 19.0 Microalb/Creat Ratio 6.5 Assessment & Plan Assessment & Plan (1) Type 2 diabetes mellitus: Code(s): E11.9 - Type 2 diabetes mellitus without complications Category: Medical Plan: Continue current regimen. (2) Hypertension: Code(s): I10 - Essential (primary) hypertension Category: Medical Plan: WNL. Continue current regimen (3) Nail avulsion of toe: Code(s): S91.209A - Unspecified open wound of unspecified toe(s) with damage to nail, initial encounter Category: Medical Plan: Referral to podiatry. Encouraged her to try running and a half size larger sneaker Orders: Orders AMB Hemoglobin A1c Today E11.9 - Type 2 diabetes mellitus without complications, Z13.9 - Encounter for screening, unspecified Referrals Podiatry Referral E11.65 - Type 2 diabetes mellitus with hyperglycemia, S91.209A - Unspecified open wound of unspecified toe(s) with damage to nail, initial encounter, Z79.4 - intermediate manager (current) use of insulin Medications: Changed From rosuvastatin 20 mg PO QAM To rosuvastatin 20 mg PO .nightly 90 tabs 3RF Refilled dulaglutide 1.5 mg (0.5 mL) subcut QWEEK 2 mL 11RF 28 days Coding Level of Care Code Est Pt Level 4 (01608) Complex EM visit Add On G2211 Diagnoses Type 2 diabetes mellitus E11.9 Hypertension I10 Nail avulsion of toe S91.209A
[2025-06-30 11:26] VITALS: BP 102/86; PULSE 77; O2SAT 98; BMI 21.2
[2025-06-30 11:39] LABS: Glucose, Whole Blood 124 mg/dL (60-115)
== END 2025-06-30 11:54 | disposition home or self-care (01) ==
LOC: HO.ENCR 11:24
PROVIDERS: PCP Internal Medicine; Visit Provider Physician Assistant
DX: E11.9 Type 2 diabetes mellitus without complications (principal); I10 Essential (primary) hypertension; S91.209A Unspecified open wound of unspecified toe(s) with damage to nail, initial encounter; Z13.9 Encounter for screening, unspecified

== ENCOUNTER 2025-07-17 09:40 | Outpatient (AMB) | payer MEDICAID, SELFPAY ==
[2025-07-17 09:45] VITALS: BMI 20.2
--- NOTE | 2025-07-17 09:45 | MHC.OFFVIS ---
Vital Signs 07/17/25 09:45 Height 5 ft 6 in Weight 125 lb BMI 20.2 Intake Visit Reasons: RESIDENT CARE AID: Left Great Toe Open Wound Intake Note: Barb is a 49 year old female who presents today as a New Patient for evaluation of Diabetic foot care. Per referring provider patient reported her toenail was slightly lifted and damaged. Patient reports her glucose last checked this morning was at 87. She does not have any numbness or tingling in her feet. Medical Anthropologist Required: Yes Medical Anthropologist Services: Medical Anthropologist Present Medical Anthropologist Name: [id number] Allergies No Known Allergies (No Known Allergies*) Allergy (Verified 07/17/25 09:45) Medication List - Last Reconciled 07/17/25 by Mane Samano DPM albuterol sulfate 90 mcg/actuation 1 inh inhalation QID PRN benzonatate 100 mg PO TID PRN bisacodyl (Dulcolax (bisacodyl)) 20 mg (4 x 5 mg) PO ONCE 1 day blood sugar diagnostic (FreeStyle Lite Strips) As directed three times a day blood-glucose meter (FreeStyle Cope Lite kit) 3x/day blood-glucose sensor (FreeStyle Macey 3 Sensor device) As directed blood-glucose sensor (FreeStyle Macey 3 Sensor device) As directed blood-glucose,circuit clerk,cont (FreeStyle Macey 3 [place]) As directed cholecalciferol (vitamin D3) 50 mcg PO DAILY 90 days dulaglutide 1.5 mg (0.5 mL) subcut QWEEK 28 days fluticasone propionate 50 mcg/actuation 2 sprays intranasal DAILY ibuprofen 600 mg PO Q6H lancets (FreeStyle Lancets) Three times a day lisinopril 20 mg PO QAM loratadine 10 mg PO DAILY mirtazapine 15 mg PO BEDTIME polyethylene glycol 3350 (Miralax) 238 grams PO ONCE prednisone 50 mg PO DAILY rosuvastatin 20 mg PO .nightly terbinafine HCl 250 mg PO DAILY vitamin B comp and C no.3 (B Complex Plus Vitamin C) 1 cap PO DAILY HPI HPI RESIDENT CARE AID: Left Great Toe Open Wound: Details: The patient is a 49-year-old female with past medical history of diabetes mellitus, hypertension, dyslipidemia presenting with discolored toenails both big toes. She states that the discoloration has been present for approximately 1 year. She has not tried any treatment thus far. She denies any exposure factors at home such as anyone else with similar nail issues. No prior treatments have been attempted for this condition. [facility] Medical History Type 2 diabetes mellitus Family history of early CAD Hypertension Vitamin D deficiency Dyslipidemia Microalbuminuria due to type 2 diabetes mellitus Ketosis-prone diabetes mellitus Surgical History Hx of section Family History Father Diabetes mellitus Cancer Mother No problems noted. Sister Myocardial infarction Social History Household Members: Children Household Members Other:: son and daughter Alcohol intake: never Patient Tobacco Use Status: Current someday Tobacco user Review of Systems Const All systems reviewed & are unremarkable except as noted in HPI and below Physical Exam Vital Signs: BMI result Body Mass Index 20.2 Skin Other: *Bilateral Lower Extremity diabetic focused Foot Exam Vascular: DP/PT 2/4 bilaterally, CFT<3s to digits, TG warm to cool, no pedal edema, pedal hair present Derm: Skin: No open lesions, ulcerations, or calluses. Interdigital spaces: Clear, no maceration or fungal infection. Nails: Discolored thickened toenails bilaterally right and left hallux. Right hallux has a white patch discoloration at the distal aspect, left nail is darkened and discolored mostly to the lateral aspect. Neuro: Protective sensation grossly intact to bilateral lower extremities. Msk: Deformities: No evidence of hammertoes, bunions, Charcot changes, or other structural abnormalities. Muscle strength: 5/5 in all muscle groups. Gait: Normal, no antalgic or steppage gait observed. Footwear Assessment: Shoes inspected; appropriate fit, no excessive wear, or foreign objects noted. Office Procedures AMB Debridement/Avulsion Podia Nail Biopsy: [id number] Nail unit biopsy (Left hallux nail biopsy performed using sterile nail Nipper. Specimen was sent for pathology.) Procedure code (CPT) selection complete Results Reviewed Results Reviewed: Laboratory Tests 03/01/21 06/30/25 09:09 11:41 Hgb A1c (Clinic) 7.1 H 5.9 Laboratory Tests 06/30/25 08:58 AST 22 ALT 27 Assessment & Plan Assessment & Plan (1) Tinea unguium: Code(s): B35.1 - Tinea unguium Category: Medical Plan: Discussed the etiology of her nail discoloration. Differential diagnosis includes fungal infection versus diabetic nail dystrophic changes. Nail biopsy performed of left hallux nail. Discussed options for treatment which include topical versus oral antifungal medication. The patient deferred topical treatment at this time and requested oral treatment. Discussed Risks and Side Effects of Oral Antifungal Therapy which include: gastrointestinal upset, headache, rash, taste disturbances, and, hepatotoxicity or elevated liver enzymes. Serious adverse effects such as drug-induced liver injury, hypersensitivity reactions, and hematologic abnormalities are uncommon but possible. Monthly monitoring of liver function is recommended during treatment. Rx terbinafine 250 mg daily. Rx LFTs to be performed in 1 month. (2) Type 2 diabetes mellitus: Code(s): E11.9 - Type 2 diabetes mellitus without complications Category: Medical Qualifiers: Diabetes mellitus iron setter insulin use: without iron setter use Diabetes mellitus complication status: without complication Qualified Code(s): E11.9 - Type 2 diabetes mellitus without complications Plan: Risk Stratification: No current ulceration, infection, or pre-ulcerative lesion. No loss of protective sensation or peripheral arterial disease. No plans for further testing/referrals for non-invasive vascular studies. Patient is at low risk for diabetic foot complications at this time. Recommendations: Continue routine foot care and daily self-inspection. Recommend moisturizing daily. Orders: Orders Liver Panel Today B35.1 - Tinea unguium AMB Debridement/Avulsion Podiatry Today B35.1 - Tinea unguium Medications: New terbinafine HCl 250 mg PO DAILY 30 tabs 2RF Onychomycosis B35.1 - Tinea unguium Coding Level of Care Code New Pt Level 4 (85326) Diagnoses Tinea unguium B35.1 Type 2 diabetes mellitus without complication, without long-term current use of insulin E11.9 Diabetes mellitus iron setter insulin use: without intermediate use Diabetes mellitus complication status: without complication CPT Codes Skin Debridement - CPT: 97795 Nail unit biopsy ([id number]) Time Spent (min) 25
--- OUTSIDE RECORDS SUMMARY | 2025-07-17 11:46 | XMS_ITS | Encounter Summary ---
Author Organization [employer] Address [address] [place] [address] [address] [place] [address] Care Team Providers Care Saloon Keeper Name Role Phone Danna Dinh MD Primary Care Provider [phone] Reason for Visit * Reason Onset Date Comments Nurse Triage 05/08/2023 Encounter Details Date Type Department Care Team ([facility] st Contact Info) Description 05/08/2023 Telephone C [facility] [address] [place], [place] [phone] Danna Dinh MD [address] [place] [address] Nurse Triage Social History Tobacco Use Types [...] 05/08/2023 10:32 AM EDT Triage call with Leondra music Public Works Director [id number] Pt reports a rash which comes this time every year. Pt reports it is a red, smooth rash over bilateral shoulders, arms and chest. Pt also has some rash on left thigh. Rash started last week and continues to be itchy and spreads. Pt is offered apt in [facility] but unable to go at times available. Pt is advised to come to [facility] today and agrees. Home care is reviewed [...] accepted this outcome Please contact pt at [phone] (Eritrean speaker) documented in this encounter Plan of Treatment Not on file documented as of this encounter Visit Diagnoses Not on filedocumented in this encounter Additional Health Concerns Assessment Noted Time PHQ-9 Depression Total Score: 2 11/05/19 23 2:50 PM EST documented as of this encounter Care Teams Saloon Keeper Relationship Specialty Start Date End Date Danna Dinh MD [address] [place] [id number] PCP - General Family Medicine 12/21/20 documented as of this encounter
--- OUTSIDE RECORDS SUMMARY | 2025-07-17 11:46 | XMS_ITS | Encounter Summary ---
Author Organization [employer] Address [address] [place] [address] [address] [place] [address] Care Team Providers Care Art Historian Name Role Phone Danna Dinh MD Primary Care Provider [phone] Encounter Details Date Type Department Care Team ([facility] st Contact Info) Description 10/21/2022 Orders Only [facility] [address] [place], [place] [phone] Danna Dinh MD [address] [place], [place] [phone] Hyperglycemia due to type 1 diabetes mellitus [...] Primary documented in this encounter Care Teams Art Historian Relationship Specialty Start Date End Date Danna Dinh MD [address] [place], [place] [phone] PCP - General Family Medicine 12/21/20 documented as of this encounter
--- OUTSIDE RECORDS SUMMARY | 2025-07-17 11:46 | XMS_ITS | Clinical Summary ---
Author Organization [employer] Address [address] [facility] 7t [place] [address] Care Team Providers Care Medical Imaging Technologist Name Role Phone Danna Dinh MD Primary Care Provider [phone] Allergies No known active allergies Medications loratadine [...] Encounters Date Type Department Care Team Description 07/05/2025 Results Follow-Up [facility] [address] [place] [address] Danna Dinh MD POCT A1C, POCT glucose manually resulted, CBC auto differential, Additional followed-up results: 6 06/22/2025 Telephone [facility] [address] [place] [address] Danna Dinh MD No Show 06/14/2025 Telephone [facility] [address] [place] [address] Danna Dinh MD CHART PREP 05/21/2025 Refill [facility] [address] [place] [address] Yumiko Jones MD 05/08/2025 1:00 PM EDT Office Visit [facility] [address] [place] [address] Danna Dinh MD Other fatigue (Primary Dx); Hyperglycemia due to type 1 diabetes mellitus ([facility]/HCC); Colon cancer screening; Acute intractable tension-type headache; Type 2 diabetes mellitus without complication, without long-term current use of insulin ([facility]/HCC); Chronic cough 05/08/2025 Travel 04/28/2025 Patient Outreach [facility] [address], [place] [phone] Danna Dinh MD Pre-visit Planning (SDOH screening negative and Tobacco screening positive) 04/28/2025 Refill [facility] [address] [place] [address] Danna Dinh MD from Last 3 Months Immunizations Immunization Administration [...] housing situation today? I have anshu [place] 04/28/[address] you [...] 1975 Sigmoidoscopy 1975 Family Planning (PISQ) 1991 Diabetes: Foot Exam 08/03/2024 08/03/2023, 08/03/2023, 08/03/2023, Additional history exists COVID-19 Vaccine ( season) 2025 11/20/2021, 03/28/2021, 03/07/2021 Influenza Vaccine (#1) 2025 9, 08/11/2018, 07/22/2016, Additional history exists Diabetes: Hemoglobin A1C 11/08/2025 025, 12/30/2024, 02/18/2024, Additional history exists Cervical Cancer Screening 02/19/2026 HPV/Cotest 02/19/2026 02/19/2021 Pap Smear 02/19/2026 02/19/2021 Mammogram 02/23/2026 02/24/2024, 02/01, 01/27/2019, Additional history exists SDOH Screening 04/28/2026 [...] 09/04/2017 (Patient Refused) Tobacco Screening 05/08/2026 05/08/2025 Lipid Panel 06/30/2026 06/30/2025, 08/03, 11/04/2022, Additional history exists Zoster Vaccines (1 of [...] Procedure Name Priority Date/Time Associated Diagnosis Comments LIPID PANEL, STANDARD Routine 06/30/2025 8:58 AM EDT Hyperglycemia due to type 1 diabetes mellitus (CMS/HCC) VITAMIN D,25-OH,TOTAL,IA Routine 06/30/2025 8:58 AM EDT Other fatigue TSH W/REFLEX TO FT4 Routine 06/30/2025 8 :58 AM EDT Other fatigue FERRITIN Routine 06/30/2025 8:58 AM EDT Other fatigue IRON AND TOTAL IRON BINDING CAPACITY Routine 06/30/2025 8:58 AM EDT Other fatigue COMPREHENSIVE METABOLIC PANEL Routine 06/30/2025 8:58 AM EDT Other fatigue CBC WITH AUTO DIFFERENTIAL Routine 06/30/2025 8:58 [...] ([place] DPH) Routine 08/22/2023 8:32 AM EDT HPV MRNA E6/E7 Routine 02/19/2021 1:16 PM EDT THINPREP IMAGING SYSTEM PAP Routine 02/19/2021 1:16 PM EDT from Last 3 Months or Most Recently Relevant to Health Maintenance Results * Vitamin D, 25-Hydroxy, Total, Immunoassay (06/30/2025 8:58 AM EDT) Vitamin D 25-OH Total 33.8 >30 ng/mL [facility] Comment: Health Based Reference Values*< 20 ng/mL Ofxdygfav76-48 ng/mL Insufficient> 30 ng/mL Sufficient*Brett CASTILLO. N Engl J Med. 2007;357:266-280There is no well-established upper level of normal vitamin Dlevels. Some laboratories use 50 ng/mL as an upper limit ofnormal. However, toxicity is patient-dependent and may occurat any level. Careful correlation with the patient'spresentation is necessary and, if there is concern forvitamin D toxicity, treatment should be consideredirrespective of the serum level.Care must be taken in interpreting Vitamin D results fromdifferent laboratories and methodologies. Published datademonstrated that results from patients undergoinghemodialysis may show a negative bias when tested withvarious automated 25-OH vitamin D assays when compared toLC-MS/MS.When testing samples from patients whose predominant form ofVitamin D is Vitamin D2, such as patients receiving VitaminD2 supplementation, results that are subtherapeutic shouldbe confirmed with another method such as LC-MS/MS. Blood Venous blood specimen / Unknown 06/30/2025 8:58 AM EDT 06/30/2025 8:58 AM EDT Danna Dinh MD LAB BLOOD ORDERABLES Final Re sult Performing Organization Address [facility]/ZIP Co de Phone Number [facility] [address] [place] [phone] * TSH W/Reflex to FT4 (06/30/2025 8:58 AM EDT) TSH reflex Free T4 1.00 0.32 - 4.0 uIU/mL [facility] Blood Venous blood specimen / Unknown 06/30/2025 8:58 AM EDT 06/30/2025 8:58 AM EDT us Danna Dinh MD LAB BLOOD ORDERABLES Final Re sult Performing Organization Address [facility] Co de Phone Number [facility] [address] [place] [phone] * (ABNORMAL) CBC auto differential (06/30/2025 8:58 AM EDT) White Blood Count 8.6 4.8 - 10.8 X10*3/uL [facility] Red Blood Count 4.20 4.20 - 5.50 X10*6/uL [facility] Hemoglobin 13.0 12.0 - 16.0 g/dl [facility] Hematocrit 37.8 37.0 - 47.0 % [facility] Mean Corpuscular Volume 90.0 80.0 - 98.0 fL [facility] Mean Corpuscular Hemoglobin 31.0 27.0 - 33.0 pg [facility] Mean Corpuscular HGB Conc 34.4 31.0 - 35.0 g/dl [facility] Red Cell Distribution Width 12.4 11.0 - 16.0 % [facility] Platelet Count 302 160 - 400 X10*3/uL [facility] Mean Platelet Volume 11.0 9.4 - 12.3 fL [facility] Neutrophils Percent Auto 51.5 45 - 73 % [facility] Imm Gran Pct Auto 0.2 0.0 - 0.4 % [facility] Lymphocytes Percent Auto 36.3 20 - 40 % [facility] Monocytes Percent Auto 6.3 2 - 11 % [facility] Eosinophils Percent Auto 4.2(H) 0 - 4 % [facility] Basophils Percent Auto 1.5 0 - 2 % [facility] NRBC Pct Auto 0.0 0.0 - 0.2 /100WBC [facility] Neutrophils Absolute Auto 4.4 2.0 - 8.3 x10*3/uL [facility] Imm Gran Abs Auto 0.02 0.00 - 0.03 X10*3/uL [facility] Lymphocytes Absolute Auto 3.1 1.2 - 4.9 X10*3/uL [facility] Monocytes Absolute Auto 0.5 0.1 - 1.2 X10*3/uL [facility] Eosinophils Absolute Auto 0.4 0.0 - 0.4 X10*3/uL [facility] Basophils Absolute Auto 0.1 0.0 - 0.2 X10*3/uL [facility] NRBC Abs Auto 0.000 0.0 - 0.012 X10*3/uL [facility] Blood Venous blood specimen / Unknown 06/30/2025 8:58 AM EDT 06/30/2025 8:58 AM EDT us Danna Dinh MD LAB BLOOD ORDERABLES Final Re sult [facility] [address] [place] [phone] * Iron And Total Iron Binding Capacity (06/30/2025 8:58 AM EDT) Pathologist [facility] Iron 57 30 - 160 mcg/dL [facility] Total Iron Binding Capacity 318 228 - 428 mcg/dL [facility] Percent Iron Saturation 18 15 - 50 % [facility] Unsaturated Iron Binding 261 ug/dL [facility] Blood Venous blood specimen / Unknown 06/30/2025 8:58 AM EDT 06/30/2025 8:58 AM EDT us Danna Dinh MD LAB BLOOD ORDERABLES Final Re sult Performing Organization Address [facility] Co de Phone Number [facility] [address] [place] [phone] * Ferritin (06/30/2025 8:58 AM EDT) Pathologist [facility] Ferritin 14 10 - 250 ng/mL [facility] Blood Venous blood specimen / Unknown 06/30/2025 8:58 AM EDT 06/30/2025 8:58 AM EDT us Danna Dinh MD LAB BLOOD ORDERABLES Final Re sult Performing Organization Address [facility] Co de Phone Number [facility] [address] [place] [phone] * (ABNORMAL) Lipid Panel, Standard (06/30/2025 8:58 AM EDT) Pathologist [facility] Triglycerides 107 <150 mg/dL [facility] Comment:Desirable Triglyceri de: less than 150 mg/dLBorderline High Triglyceride 150-199 mg/dLHigh Triglyceride: 200-499 mg/dLVery High Triglyceride: greater than or equal to 5OO mg/dL Cholesterol 195 <200 mg/dL [facility] Comment:Desirable Cholestero l: less than 200 mg/dLBorderline High Cholesterol: 200-239 mg/dLHigh Cholesterol: greater than 239 mg/dL LDL Cholesterol Calculated 134(H) <100 mg/dL [facility] Comment:Desirable LDL: less than 100 mg/dLNear Optimal/Above Optimal LDL: 110- 129 mg/dLBorderline High LDL: 130-159 mg/dLHigh LDL: 160-189 mg/dLVery High LDL: greater than or equal to 190 mg/dL HDL Cholesterol 40(L) >40 mg/dL [facility] Comment:Desirable HDL: great er than 40 mg/dL Note: This HDL assay may give artificially low results in patients with liver disease. Blood Venous blood specimen / Unknown 06/30/2025 8:58 AM EDT 06/30/2025 8:58 AM EDT us Danna Dinh MD LAB BLOOD ORDERABLES Final Re sult [facility] [address] [place] [phone] * (ABNORMAL) Comprehensive Metabolic Panel (06/30/2025 8:58 AM EDT) Sodium 142 135 - 145 mmol/L [facility] Potassium 4.3 3.3 - 5.1 mmol/L [facility] Chloride 111(H) 96 - 108 mmol/L [facility] Carbon Dioxide 26 22 - 29 mmol/L [facility] Anion Gap 9(L) 12 - 20 [facility] Urea Nitrogen (BUN) 16 9 - 16 mg/dL [facility] Creatinine, Serum 0.82 0.5 - 1.4 mg/dL [facility] Estimated Glomerular Filt Rate >60 [facility] Comment:Chronic Kidney Disea se: Estimated GFR < 60 mL/min/1.21h6Sfrwdm Kidney Disease: Estimated GFR < 15 mL/min/1.73m2 Glucose 102 60 - 115 mg/dL [facility] Calcium 9.0 8.4 - 10.2 mg/dL [facility] Bilirubin, Total 0.3 0.0 - 1.0 mg/dL [facility] Aspartate Amino Transferase 22 5 - 31 U/L [facility] Alanine Aminotransferase 27 0 - 31 U/L [facility] Total Protein 7.2 6.5 - 8.0 g/dL [facility] Albumin Level 4.4 3.5 - 5.0 g/dL [facility] Alkaline Phosphatase 67 39 - 117 U/L [facility] Blood Venous blood specimen / Unknown 06/30/2025 8:58 AM EDT 06/30/2025 8:58 AM EDT Danna Dinh MD LAB BLOOD ORDERABLES Final Re sult [facility] [address] [place] [phone] * POCT A1C (05/08/2025 1:15 PM EDT) Hemoglobin A1C 5.5 4.0 - 5.7 % QC Media Lot # Comment:[id number] Lot# Expiration Date Comment:11/03/2026 Blood 05/08/2025 1:15 PM EDT Danna Dinh MD POINT OF CARE TEST ENTER/EDIT ORDERABLES Final Result * POCT glucose manually resulted (05/08/2025 1:14 PM EDT) Glucose Blood, POC 83 60 - 200 mg/dL QC Media Lot # Comment:[id number] Lot# Expiration Date Comment:08/31/2025 Blood Capillary blood specimen / Unknown 05/08/2025 1:14 PM EDT Danna Dinh MD POINT OF CARE TEST ENTER/EDIT ORDERABLES Final Result * BI Mammogram Screening Tomosynthesis Bilateral (02/24/2024 10:20 AM EDT) Anatomical Region Laterality Modality Breast Bilateral Mammography 02/24/2024 10:2 0 AM EDT Narrative 03/16/2024 11:29 AM EDT [address] [place] [address] Mammography Report Signed Patient: Barb Nguyen MR#: [id number] : 1975 Acct:[id number] Age/Sex: 48 / F ADM Date: 02/24/24 Loc: HO.MAMMO Attending Dr: Danna Dinh MD Ordering Physician: Danna Dinh MD Results: 1Nega tive Date of Service: 02/24/24 Follow Up: 1 Year From Orig ina Mammogram Procedure(s): MM tomosynthesis screening BI Accession Number(s): [id number] cc: Danna Dinh MD EXAMINATION: MM SCREENING [...] in OV> 03/16/24 1126 DD/ 1020 TD/TT: Senior Hr Generalist: Procedure Note Donotuseinterpreter, Image - 03/16/[address] [place] [address] Mammography Report Signed Patient: Barb NguyenMR#: [id number] : 1975Acct:[id number] Age/Sex: 48 / FADM Date: 02/24/24 Loc: HO.MAMMO Attending Dr: Danna Dinh MD Ordering Physician: Danna Dinh MDResults: 1Nega tive Date of Service: 02/24/24Follow Up: 1 Year From Orig inal Mammogram Procedure(s): MM tomosynthesis screening BI Accession Number(s): [id number] cc: Danna Dinh MD EXAMINATION: MM SCREENING [...] in OV> 03/16/24 1126 DD/ 1020 TD/TT: Senior Hr Generalist: us Danna Dinh MD IMG BI PROCEDURES Final Resul t * Hepatitis C Ab (08/22/2023 8:32 AM EDT) Hepatitis C Antibody Nonreactive Nonreactive [facility] Comment:Antibodies to HCV no t detected; does not exclude early acuteHCV infection. Blood 08/22/2023 8:32 AM EDT 08/22/2023 8:32 AM EDT Danna Dinh MD LAB BLOOD ORDERABLES Final Re sult Performing Organization Address [facility]/ZIP Co de Phone Number [facility] [address] [place] [phone] * HIV Ab/Ag ([facility]) (08/22/2023 8:32 AM EDT) HIV AB/AG Nonreactive Nonreactive [facility] Comment:HIV-1 p24 Ag and/or HIV-1/HIV-2 Ab not detected.A test result that is nonreactive does not exclude thepossibility of exposure to or infection with HIV-1 and/orHIV-2. Nonreactive results in this assay for individualswith prior exposure to HIV-1 and/or HIV-2 may be due toantigen and antibody levels that are below the limit ofdetection of this assay.The [employer] HIV Ag/Ab Combo assay result andsupplemental assay results should be interpreted inconjunction with the patient's clinical presentation,history and other laboratory results. If the results areinconsistent with clinical evidence, additional testing issuggested to confirm the result. 08/22/2023 8:32 AM EDT 08/22/2023 8:32 AM EDT us Danna Dinh MD LAB BLOOD ORDERABLES Final Re sult Performing Organization Address [facility]/ZIP Co de Phone Number [facility] [address] [place] [phone] * THINPREP TIS PAP (02/19/2021 1:16 [...] assisted technology. [facility] Tar Boiler : SEE COMMENT [facility] Comment: CMG, CT(ASCP) CT screening location: [place] [address] Infection Shift in vaginal dameon suggestive of bacterial vaginosis. [facility] Interpretation/R esult: Negative for intraepithelial [...] [facility] [address] * HPV mRNA E6/E7 (02/19/2021 1:16 PM EDT) HPV nRNA E6/E7 Not Detected Not Detected [facility] Comment: Methodology: Traffic Court Magistrate-Mediated Amplification This assay detects E6/E7 viral messenger RNA (mRNA) from 14 high-risk HPV types (16,18,31,33,35,39,45,51,52,56,58,59,66,68). The analytical performance characteristics of this assay have been determined by [employer]. The modifications have not been cleared or approved by the FDA. This assay has been validated pursuant to the CLIA regulations and is used for clinical purposes. For additional information, please refer to http://education.LIANAI.Yassets/faq/JJZ655x7 (This link if provided for information/ educational purposes only.) 02/19/2021 1:16 PM EDT Danna Dinh MD LAB BLOOD ORDERABLES Final Re sult [facility] [address] from Last 3 Months or Most Recently Relevant to Health Maintenance [facility] Care Teams Medical Imaging Technologist Relationship Specialty Start Date End Date Danna Dinh MD [address] [facility] [place] [address] PCP - General Family Medicine 12/21/20
--- OUTSIDE RECORDS SUMMARY | 2025-07-17 11:46 | XMS_ITS | Encounter Summary ---
Author Organization [employer] Address [address] [facility] 7t [place] [address] Care Team Providers Care Mill Supervisor Name Role Phone Danna Dinh MD Primary Care Provider [phone] Encounter Details Date Type Department Care Team ([facility] Contact Info) Description 07/05/2025 Results Follow-Up [facility] [address] [place], [place] [phone] Danna Dinh MD [address] [place], [place] [phone] POCT A1C, POCT glucose manually resulted, CBC auto differential, Additional followed-up results: 6 Social History Tobacco Use Types Packs/Day Years [...] Assessment Noted Time PHQ-9 Depression Total Score: 4 05/08/20 25 1:13 PM EDT documented as of this encounter Care Teams Mill Supervisor Relationship Specialty Start Date End Date Danna Dinh MD [address] [place] [phone] PCP - General Family Medicine 12/21/20 documented as of this encounter
--- OUTSIDE RECORDS SUMMARY | 2025-07-17 11:46 | XMS_ITS | Encounter Summary ---
Author Organization [email or web address] Address [address] [place] [address] 7t [place] [address] Care Team Providers Care Stroboscope Operator Name Role Phone Danna Dinh MD Primary Care Provider [phone] Reason for Visit * Reason Onset Date Comments Med Refill 04/19/2024 Encounter Details Date Type Department Care Team ([facility] st Contact Info) Description 04/19/2024 Telephone [facility] [address] [place], [place] [phone] Danna Dinh MD [address] [place] [address] Med Refill Social History Tobacco Use Types [...] 30 MG tablet To be sent to: [facility]/pharmacy #[id number] [place] [address] - [address] [place] [address] documented in this encounter Plan of Treatment Not on file documented as of this encounter Visit Diagnoses Not on filedocumented in this encounter Additional Health Concerns Assessment Noted Time PHQ-9 Depression Total Score: 2 11/05/19 23 2:50 PM EST documented as of this encounter Care Teams Stroboscope Operator Relationship Specialty Start Date End Date Danna Dinh MD [address] [place] [address] PCP - General Family Medicine 12/21/20 documented as of this encounter
--- OUTSIDE RECORDS SUMMARY | 2025-07-17 11:46 | XMS_ITS | Clinical Summary ---
Author Organization [facility] Address [address] [place] [address] Care Team Providers Care Customer Service Receptionist Name Role Phone Unavailable Primary Care Provider [...] 2021 Fecal DNA 2021 Flexible Sigmoidoscopy 2021 Alcohol and Drug Screen 11/02/2024 Depression Annual Screen 11/02/2024 [id number] ( season) 2025 021, 03/07/2021 Imm-Influenza (#1) 2025 07/28/2019, 1 , 07/22/2016, Additional history exists Cervical Ablation/Cold-Knife Conization Discontinued Cervical Cryotherapy Discontinued Colposcopy Discontinued Endometrial Biopsy Discontinued Excision/Leep Discontinued HPV Genotyping Discontinued Vaginal Pap Discontinued Vulvoscopy Discontinued Insurance [address] [employer]
--- OUTSIDE RECORDS SUMMARY | 2025-07-17 11:46 | XMS_ITS | Encounter Summary ---
Author Organization [employer] Address [address] [facility] 7t [place] [address] Care Team Providers Care Spray Applicator Name Role Phone Danna Dinh MD Primary Care Provider [phone] Reason for Visit * Reason Comments Med Refill Encounter Details Date Type Department Care Team ([facility] st Contact Info) Description 03/23/2025 Refill [facility] [address] [place], [place] [phone] Danna Dinh MD [address] [place], [place] [phone] Social History Tobacco Use Types Packs/Day Years [...] documented as of this encounter Care Teams Spray Applicator Relationship Specialty Start Date End Date Danna Dinh MD [address] [place] [phone] PCP - General Family Medicine 12/21/20 documented as of this encounter
== END 2025-07-17 11:26 | disposition home or self-care (01) ==
LOC: HO.HPODS 09:40
PROVIDERS: PCP Family Medicine; Visit Provider Student in an Organized Health Care Education/Training Program
DX: B35.1 Tinea unguium (principal); E11.9 Type 2 diabetes mellitus without complications
CPT/HCPCS: 11721; 99203

== ENCOUNTER 2025-07-17 10:27 | Outpatient (REF) | payer MEDICAID, SELFPAY | END 2025-07-17 10:28 | disposition home or self-care (01) | LOC: HO.LNP 10:27 | PROVIDERS: Visit Provider Student in an Organized Health Care Education/Training Program | DX: E11.9 Type 2 diabetes mellitus without complications (principal); B35.1 Tinea unguium | CPT/HCPCS: 88304; 88312 ==

== ENCOUNTER 2025-09-08 17:46 | Emergency (ER) | payer MEDICAID, SELFPAY ==
[2025-09-08 18:22] VITALS: BP 135/88; PULSE 75; RESP 16; TEMP 36.4; O2SAT 99; BMI 21.6
--- NOTE | 2025-09-08 18:23 | ED.EYEPROB ---
HPI - Eye Problem General Chief complaint: Eye Problems Stated complaint: ?Blood in R eye Time Seen by Provider: 09/08/25 19:57 Source: patient and old records reviewed Mode of arrival: ambulatory Limitations: no limitations History of Present Illness ED Provider: ERINN MCMAHON Narrative: 50-year-old female with past medical history of hyperlipidemia diabetes, hypertension not on any blood thinners here with complaint of noting blood in redness to right eye she woke up this way yesterday and felt it. She denies any recent trauma, does not wear contact lens, she has no pain or change to vision. She has no other complaints at this time. She has never had this before Onset (ago): day(s) (One) Onset description: sudden Duration: constant Location: right eye Eye Symptoms: other Place: home Mechanism: none Severity: mild Associated symptoms: none Treatments Prior to Arrival: none Related Data Home Medications ?Medication ?Instructions ?Recorded ?Confirmed mirtazapine 15 mg tablet 15 mg PO BEDTIME 09/12/21 07/17/25 vitamin B comp and C no.3 15 mg-10 1 cap PO DAILY 09/12/21 07/17/25 mg-50 mg-5 mg-300 mg capsule (B Complex Plus Vitamin C) fluticasone propionate 50 2 spray intranasal DAILY 02/23/24 07/17/25 mcg/actuation nasal spray,suspension loratadine 10 mg tablet 10 mg PO DAILY 02/23/24 07/17/25 lisinopril 30 mg tablet 20 mg PO QAM 06/30/25 07/17/25 Previous Rx's ?Medication ?Instructions ?Recorded ibuprofen 600 mg tablet 600 mg PO Q6H #60 tabs 02/27/21 cholecalciferol (vitamin D3) 50 50 mcg PO DAILY 90 days #90 caps 03/01/21 mcg (2,000 unit) capsule blood-glucose meter (FreeStyle #1 ea 07/11/21 Little Silver Lite kit) lancets 28 gauge (FreeStyle #100 ea 07/11/21 Lancets) albuterol sulfate 90 mcg/actuation 1 inh inhalation QID PRN shortness 05/04/22 aerosol inhaler of breath or wheezing #8.5 grams blood sugar diagnostic (FreeStyle #100 ea 05/25/24 Lite Strips) blood-glucose sensor (FreeStyle #2 ea 05/25/24 Macey 3 Sensor device) blood-glucose sensor (FreeStyle #2 ea 05/25/24 Macey 3 Sensor device) blood-glucose,electric organ assembler and checker,cont #1 ea 05/25/24 (FreeStyle Macey 3 [place]) benzonatate 100 mg capsule 100 mg PO TID PRN cough #12 caps 02/17/25 prednisone 50 mg tablet 50 mg PO DAILY #4 tabs 02/17/25 bisacodyl 5 mg tablet,delayed 20 mg (4 x 5 mg) PO ONCE 1 day #4 05/23/25 release (Dulcolax (bisacodyl)) tabs polyethylene glycol 3350 17 238 g PO ONCE #238 grams 05/23/25 gram/dose oral powder (Miralax) dulaglutide 1.5 mg/0.5 mL 1.5 mg (0.5 mL) subcut QWEEK 28 06/30/25 subcutaneous pen injector days #2 mL rosuvastatin 20 mg tablet 20 mg PO .nightly #90 tabs 06/30/25 terbinafine HCl 250 mg tablet 250 mg PO DAILY Onychomycosis #30 07/17/25 tabs Allergies Allergy/AdvReac Type Severity Reaction Status Date / Time No Known Allergies (No Known Allergy Verified 09/08/25 18:25 Allergies*) Review of Systems Review of Systems: Yes all other systems are reviewed and are negative [facility] Past Medical History Attestation statement: The following information was validated with the patient. Source: old records reviewed Medical History Type 2 diabetes mellitus Family history of early CAD Hypertension Vitamin D deficiency Dyslipidemia Microalbuminuria due to type 2 diabetes mellitus Ketosis-prone diabetes mellitus Surgical History Hx of section Family History Family History Father Diabetes mellitus Cancer Mother No problems noted. Sister Myocardial infarction Social History Social History Household Members: Children Household Members Other:: son and daughter Alcohol intake: never Patient Tobacco Use Status: Current someday Tobacco user Advance Directives: No Advance Directives Information Provided: No Physical Exam Vital Signs: Vital Signs: Last Vital Signs Temp 97.6 F 09/08/25 18:22 Pulse 75 09/08/25 18:22 Resp 16 09/08/25 18:22 BP 135/88 09/08/25 18:22 Pulse Ox 99 09/08/25 18:22 O2 Del Method Room Air 09/08/25 18:22 BMI result Body Mass Index 21.6 Appearance: Alert. Oriented X3. No acute distress. Eyes: Pupils equal, round and reactive to light. Right eye lateral moderate subconjunctival hemorrhage, that does not involve the people or iris, she has normal external lids, she has normal extraocular function, it does not cross the midline ENT: Pharynx normal. Neck: Normal inspection. CVS: Pulses normal. Respiratory: No respiratory distress. Abdomen: Soft and nontender. Skin: Skin warm and dry. Normal skin color. Extremities: No lower extremity edema. Neuro: Oriented X 3. No motor deficit. No sensory deficit. CN2-12 intact Course Course Course Narrative: This is an RME: Additional HPI, ROS, PE not included below will be deferred to primary provider. RME assessment and note performed by: Emma Villalta PA-C This is a 39-cnep-zcy-female, with a past medical history of HTN and diabetes, who presents to the ER with a complaint of right eye redness since yesterday morning. Reports that she woke up with redness in her right eye. Reports no changes to vision. No contact use. Reporting some discomfort in his right eye. +right subconjunctival hemorrhage noted. Plan: needs eye ecam Medical Decision Making Medical Decision Making MDM Narrative: 50-year-old female with past medical history of hyperlipidemia diabetes, hypertension not on any blood thinners here with isolated right-sided subconjunctival hemorrhage with no vision change no other issues or concerns, no signs of infection, normal external exam, no vision changes at this time sent home with precautions and reassurance Differential Diagnosis Differential Diagnoses: The differential diagnosis associated with the presentation includes Subconjunctival hemorrhage External Record Review External record reviewed: Outpatient record Prescription Management I considered prescription management with: Other Discharge Plan Discharge Clinical Impression: Subconjunctival hemorrhage Qualifiers: Laterality: right Qualified Code(s): H11.31 - Conjunctival hemorrhage, right eye Patient Disposition: Home, Self-Care Instructions: Ecchymosis (ED) Additional Instructions: This is self-limiting It will take 2-3 weeks to heal it will sometimes turn yellow and brown Return if he notice any blood in the brown part of your eye, any vision loss, any other new concerns or symptoms Do not wear contact lens while this is healing Prescriptions: No Action (DME) blood-glucose meter [FreeStyle Little Silver Lite] Kit See Rx Instructions .ROUTE .MEDSUPPLY Qty: 1 0RF Rx Instructions: 3x/day (DME) lancets [FreeStyle Lancets] 28 gauge misc See Rx Instructions .ROUTE .MEDSUPPLY Qty: 100 11RF Rx Instructions: Three times a day bisacodyl [Dulcolax (bisacodyl)] 5 mg tablet,delayed release (DR/EC) 20 mg PO ONCE 1 Days Qty: 4 0RF Rx Instructions: take 4 tabs at noon the day before your colonoscopy polyethylene glycol 3350 [Miralax] 17 gram/dose powder 238 g PO ONCE Qty: 238 0RF Rx Instructions: As directed by gastroenterology department at [facility] ibuprofen 600 mg tablet 600 mg PO Q6H Qty: 60 0RF albuterol sulfate 90 mcg/actuation HFA aerosol inhaler 1 inh inhalation QID PRN (Reason: shortness of breath or wheezing) Qty: 8.5 0RF prednisone 50 mg tablet 50 mg PO DAILY Qty: 4 0RF benzonatate 100 mg capsule 100 mg PO TID PRN (Reason: cough) Qty: 12 0RF mirtazapine 15 mg tablet 15 mg PO BEDTIME B Complex Plus Vitamin C [id number] mg capsule 1 cap PO DAILY Rx Instructions: give with food (meal/snack) cholecalciferol (vitamin D3) 50 mcg (2,000 unit) capsule 50 mcg PO DAILY 90 Days Qty: 90 1RF fluticasone propionate 50 mcg/actuation spray,suspension 2 spray intranasal DAILY loratadine 10 mg tablet 10 mg PO DAILY lisinopril 30 mg tablet 20 mg PO QAM (DME) FreeStyle Lite Strips Strip See Rx Instructions .ROUTE .MEDSUPPLY Qty: 100 11RF Rx Instructions: As directed three times a day (DME) FreeStyle Macey 3 Sensor Device See Rx Instructions .ROUTE .MEDSUPPLY Qty: 2 11RF Rx Instructions: As directed (DME) FreeStyle Macey 3 Sensor Device See Rx Instructions .ROUTE .MEDSUPPLY Qty: 2 11RF Rx Instructions: As directed (DME) FreeStyle Macey 3 [place] Misc See Rx Instructions .ROUTE .MEDSUPPLY Qty: 1 0RF Rx Instructions: As directed rosuvastatin 20 mg tablet 20 mg PO .nightly Qty: 90 3RF dulaglutide 1.5 mg/0.5 mL pen injector 1.5 mg subcut QWEEK 28 Days Qty: 2 11RF terbinafine HCl 250 mg tablet 250 mg PO DAILY Qty: 30 2RF Print Language: Romansh
--- OUTSIDE RECORDS SUMMARY | 2025-09-08 20:11 | XMS_ITS | Clinical Summary ---
Author Organization [employer] Address [address] [facility] 7t [place] [address] Care Team Providers Care Route Sales Driver Name Role Phone Danna Dinh MD Primary Care Provider [phone] Allergies No known active allergies Medications loratadine [...] Encounters Date Type Department Care Team Description 2025 Telephone [facility] MEDICINE [address] [place] [address] Danna Dinh MD Nurse Triage 07/05/2025 Results Follow-Up [facility] MED & PEDS [address] [place], [place] [phone] Danna Dinh MD POCT A1C, POCT glucose manually resulted, CBC auto differential, Additional followed-up results: 6 06/22/2025 Telephone [facility] MED & PEDS [address] [place] [address] Danna Dinh MD No Show 06/14/2025 Telephone [facility] MED & PEDS [address] [place] [address] Danna Dinh MD CHART PREP from Last 3 Months Immunizations Immunization Administration [...] Vitamin D 25-OH Total 33.8 >30 ng/mL [facility] Comment: Health Based Reference Values*< 20 ng/mL Drzlmzfer23-36 ng/mL Insufficient> 30 ng/mL Sufficient*Brett CASTILLO. N [...] MD LAB BLOOD ORDERABLES Final Re sult [facility] [address] [place] [phone] * TSH W/Reflex to FT4 (06/30/2025 8:58 AM EDT) TSH reflex Free T4 1.00 0.32 - 4.0 uIU/mL [facility] Blood Venous blood specimen / Unknown 06/30/2025 8:58 AM EDT 06/30/2025 8:58 AM EDT us Danna Dinh MD LAB BLOOD ORDERABLES Final Re sult [facility] [address] [place] [phone] * (ABNORMAL) CBC auto differential (06/30/2025 8:58 AM EDT) White Blood Count 8.6 4.8 - 10.8 X10*3/uL [facility] Red Blood Count 4.20 4.20 - 5.50 X10*6/uL [facility] Hemoglobin 13.0 12.0 - 16.0 g/dl [facility] Hematocrit 37.8 37.0 - 47.0 % [facility] Mean Corpuscular Volume 90.0 80.0 - 98.0 fL [facility] Mean Corpuscular Hemoglobin 31.0 27.0 - 33.0 pg [facility] Mean Corpuscular HGB Conc 34.4 31.0 - 35.0 g/dl [facility] Red Cell Distribution Width 12.4 11.0 - 16.0 % [facility] Platelet Count 302 160 - 400 X10*3/uL [facility] Mean Platelet Volume 11.0 9.4 - 12.3 fL [facility] Neutrophils Percent Auto 51.5 45 - 73 % [facility] Imm Gran Pct Auto 0.2 0.0 - 0.4 % [facility] Lymphocytes Percent Auto 36.3 20 - 40 % [facility] Monocytes Percent Auto 6.3 2 - 11 % [facility] Eosinophils Percent Auto 4.2(H) 0 - 4 % [facility] Basophils Percent Auto 1.5 0 - 2 % [facility] NRBC Pct Auto 0.0 0.0 - 0.2 /100WBC [facility] Neutrophils Absolute Auto 4.4 2.0 - 8.3 x10*3/uL [facility] Imm Gran Abs Auto 0.02 0.00 - 0.03 X10*3/uL [facility] Lymphocytes Absolute Auto 3.1 1.2 - 4.9 X10*3/uL [facility] Monocytes Absolute Auto 0.5 0.1 - 1.2 X10*3/uL [facility] Eosinophils Absolute Auto 0.4 0.0 - 0.4 X10*3/uL [facility] Basophils Absolute Auto 0.1 0.0 - 0.2 X10*3/uL [facility] NRBC Abs Auto 0.000 0.0 - 0.012 X10*3/uL [facility] Blood Venous blood specimen / Unknown 06/30/2025 8:58 AM EDT 06/30/2025 8:58 AM EDT Danna Dinh MD LAB BLOOD ORDERABLES Final Re sult Performing Organization Address City/[facility]/ZIP Co de Phone Number [facility] [address] [place] [phone] * Iron And Total Iron Binding Capacity (06/30/2025 8:58 AM EDT) [facility] Iron 57 30 - 160 mcg/dL [facility] Total Iron Binding Capacity 318 228 - 428 mcg/dL [facility] Percent Iron Saturation 18 15 - 50 % [facility] Unsaturated Iron Binding 261 ug/dL [facility] Blood Venous blood specimen / Unknown 06/30/2025 8:58 AM EDT 06/30/2025 8:58 AM EDT Danna Dinh MD LAB BLOOD ORDERABLES Final Re sult Performing Organization Address City/[facility]/ZIP Co de Phone Number [facility] [address] [place] [phone] * Ferritin (06/30/2025 8:58 AM EDT) Ferritin 14 10 - 250 ng/mL [facility] Blood Venous blood specimen / Unknown 06/30/2025 8:58 AM EDT 06/30/2025 8:58 AM EDT Danna Dinh MD LAB BLOOD ORDERABLES Final Re sult Performing Organization Address [facility] Co de Phone Number [facility] [address] [place] [address] [phone] * (ABNORMAL) Lipid Panel, Standard (06/30/2025 8:58 AM EDT) Pathologist [facility] Triglycerides 107 <150 mg/dL [facility] Comment:Desirable Triglyceri de: less than 150 mg/dLBorderline High Triglyceride 150-199 mg/dLHigh Triglyceride: 200-499 mg/dLVery High Triglyceride: greater than or equal to 5OO mg/dL Cholesterol 195 <200 mg/dL [facility] Comment:Desirable Cholestero l: less than 200 mg/dLBorderline High Cholesterol: 200-239 mg/dLHigh Cholesterol: greater than 239 mg/dL LDL Cholesterol Calculated 134(H) <100 mg/dL [facility] Comment:Desirable LDL: less than 100 mg/dLNear Optimal/Above Optimal LDL: 110- 129 mg/dLBorderline High LDL: 130-159 mg/dLHigh LDL: 160-189 mg/dLVery High LDL: greater than or equal to 190 mg/dL HDL Cholesterol 40(L) >40 mg/dL [facility] Comment:Desirable HDL: great er than 40 mg/dL Note: This HDL assay may give artificially low results in patients with liver disease. Blood Venous blood specimen / Unknown 06/30/2025 8:58 AM EDT 06/30/2025 8:58 AM EDT us Danna Dinh MD LAB BLOOD ORDERABLES Final Re sult Performing Organization Address [facility]/ZIP Co de Phone Number [facility] [address] [place] [phone] * (ABNORMAL) Comprehensive Metabolic Panel (06/30/2025 8:58 AM EDT) Sodium 142 135 - 145 mmol/L [facility] Potassium 4.3 3.3 - 5.1 mmol/L [facility] Chloride 111(H) 96 - 108 mmol/L [facility] Carbon Dioxide 26 22 - 29 mmol/L [facility] Anion Gap 9(L) 12 - 20 [facility] Urea Nitrogen (BUN) 16 9 - 16 mg/dL [facility] Creatinine, Serum 0.82 0.5 - 1.4 mg/dL [facility] Estimated Glomerular Filt Rate >60 [facility] Comment:Chronic Kidney Disea se: Estimated GFR < 60 mL/min/1.99j8Neatof Kidney Disease: Estimated GFR < 15 mL/min/1.73m2 Glucose 102 60 - 115 mg/dL [facility] Calcium 9.0 8.4 - 10.2 mg/dL [facility] Bilirubin, Total 0.3 0.0 - 1.0 mg/dL [facility] Aspartate Amino Transferase 22 5 - 31 U/L [facility] Alanine Aminotransferase 27 0 - 31 U/L [facility] Total Protein 7.2 6.5 - 8.0 g/dL [facility] Albumin Level 4.4 3.5 - 5.0 g/dL [facility] Alkaline Phosphatase 67 39 - 117 U/L [facility] Blood Venous blood specimen / Unknown 06/30/2025 8:58 AM EDT 06/30/2025 8:58 AM EDT us Danna Dinh MD LAB BLOOD ORDERABLES Final Re sult [facility] [address] [place] [phone] * POCT A1C (05/08/2025 1:15 PM EDT) Hemoglobin A1C 5.5 4.0 - 5.7 % QC Media Lot # Comment:[id number] Lot# Expiration Date Comment:11/03/2026 Blood 05/08/2025 1:15 PM EDT Danna Dinh MD POINT OF CARE TEST ENTER/EDIT ORDERABLES Final Result * BI Mammogram Screening Tomosynthesis Bilateral (02/24/2024 10:20 AM EDT) Anatomical Region Laterality Modality Breast Bilateral Mammography 02/24/2024 10:2 0 AM EDT Narrative 03/16/2024 11:29 AM EDT [facility] [address] [place], [place] [address] Mammography Report Signed Patient: Barb Nguyen MR#: [id number] : 1975 Acct:[id number] Age/Sex: 48 / F ADM Date: 02/24/24 Loc: HO.MAMMO Attending Dr: Danna Dinh MD Ordering Physician: Danna Dinh MD Results: 1Nega tive Date of Service: 02/24/24 Follow Up: 1 Year From Orig ina Mammogram Procedure(s): MM tomosynthesis screening BI Accession Number(s): [id number] cc: Danna Dinh MD EXAMINATION: MM SCREENING [...] in OV> 03/16/24 1126 DD/ 1020 TD/TT: Business Performance Analyst: Procedure Note Donotuseinterpreter, Image - 03/16/2024 [facility] [address] [place] [address] Mammography Report Signed Patient: Barb NguyenMR#: [id number] : 1975Acct:[id number] Age/Sex: 48 / FADM Date: 02/24/24 Loc: HO.MAMMO Attending Dr: Danna Dinh MD Ordering Physician: Danna Dinh MDResults: 1Nega tive Date of Service: 02/24/24Follow Up: 1 Year From Orig inal Mammogram Procedure(s): MM tomosynthesis screening BI Accession Number(s): [id number] cc: Danna Dinh MD EXAMINATION: MM SCREENING [...] in OV> 03/16/24 1126 DD/ 1020 TD/TT: Business Performance Analyst: Danna Dinh MD IMG BI PROCEDURES Final Resul t * Hepatitis C Ab (08/22/2023 8:32 AM EDT) Hepatitis C Antibody Nonreactive Nonreactive [facility] Comment:Antibodies to HCV no t detected; does not exclude early acuteHCV infection. Blood 08/22/2023 8:32 AM EDT 08/22/2023 8:32 AM EDT Danna Dinh MD LAB BLOOD ORDERABLES Final Re sult [facility] [address] [place] [phone] * HIV Ab/Ag ([facility]) (08/22/2023 8:32 AM EDT) HIV AB/AG Nonreactive Nonreactive [facility] Comment:HIV-1 p24 Ag and/or HIV-1/HIV-2 Ab not detected.A test result that is nonreactive does not exclude thepossibility of exposure to or infection with HIV-1 and/orHIV-2. Nonreactive results in this assay for individualswith prior exposure to HIV-1 and/or HIV-2 may be due toantigen and antibody levels that are below the limit ofdetection of this assay.The [employer] HIV Ag/Ab Combo assay result andsupplemental assay results should be interpreted inconjunction with the patient's clinical presentation,history and other laboratory results. If the results areinconsistent with clinical evidence, additional testing issuggested to confirm the result. 08/22/2023 8:32 AM EDT 08/22/2023 8:32 AM EDT Danna Dinh MD LAB BLOOD ORDERABLES Final Re sult Performing Organization Address [facility]/ZIP Co de Phone Number [facility] [address] [place] [phone] * THINPREP TIS PAP (02/19/2021 1:16 [...] has been evaluated with computer assisted technology. [facility] Cash Management Clerk : SEE COMMENT [facility] Comment: CMG, CT(ASCP) CT screening location: [place] [address] Infection Shift in vaginal dameon suggestive of bacterial vaginosis. [facility] Interpretation/R esult: Negative for intraepithelial lesion or malignancy. [facility] LMP: NONE [facility] Prev. BX: NONE [facility] Prev. PAP: NONE [facility]IV[facility] SOURCE: None given [facility] Statement Of Adequacy: SEE COMMENT [facility] Comment: Satisfactory for evaluation. Endocervical/transformation zone component present. Age and/or menstrual status not provided 02/19/2021 1:16 PM EDT us Danna Dinh MD LAB PATHOLOGY ORDERABLES Yeny l Result [facility] [address] [place] [address], * HPV mRNA E6/E7 (02/19/2021 1:16 PM EDT) HPV nRNA E6/E7 Not Detected Not Detected [facility] Comment: Methodology: Japanese Interpreter-Mediated Amplification This assay detects E6/E7 viral messenger RNA (mRNA) from 14 high-risk HPV types (16,18,31,33,35,39,45,51,52,56,58,59,66,68). The analytical performance characteristics of this assay have been determined by [facility]. The modifications have not been cleared or approved by the FDA. This assay has been validated pursuant to the CLIA regulations and is used for clinical purposes. For additional information, please refer to http://education.[employer]faq/MNC942f9 (This link if provided for information/ educational purposes only.) 02/19/2021 1:16 PM EDT us Danna Dinh MD LAB BLOOD ORDERABLES Final Re sult [facility] [address] from Last 3 Months or Most Recently Relevant to Health Maintenance Insurance [facility] C3 Care Teams Route Sales Driver Relationship Specialty Start Date End Date Danna Dinh MD [address] [place] [address] PCP - General Family Medicine 12/21/20
--- OUTSIDE RECORDS SUMMARY | 2025-09-08 20:11 | XMS_ITS | Encounter Summary ---
Author Organization [employer] Address [address] [facility] [address] [place] [address] Care Team Providers Care Glass Mechanic Name Role Phone Danna Dinh MD Primary Care Provider [phone] Encounter Details Date Type Department Care Team ([facility] Contact Info) Description 07/05/2025 Results Follow-Up [facility] MED & PEDS [address] [place], [place] [phone] Danna Dinh MD [address] [place], [place] [phone] POCT A1C, POCT glucose manually resulted, CBC [...] documented as of this encounter Care Teams Glass Mechanic Relationship Specialty Start Date End Date Danna Dinh MD [address] [place] [phone] PCP - General Family Medicine 12/21/20 documented as of this encounter
--- OUTSIDE RECORDS SUMMARY | 2025-09-08 20:11 | XMS_ITS | Encounter Summary ---
Author Organization [employer] Address [address] [place] [address] [address] [place] [address] Care Team Providers Care Loom Blower Name Role Phone Danna Dinh MD Primary Care Provider [phone] Reason for Visit * Reason Onset Date Comments Nurse Triage 05/08/2023 Encounter Details Date Type Department Care Team ([facility] st Contact Info) Description 05/08/2023 Telephone C [facility] [address] [place], [place] [phone] Danna Dinh MD [address] [place] [address] Nurse Triage Social History Tobacco Use Types [...] 05/08/2023 10:32 AM EDT Triage call with [facility] Ad[facility] [phone] Pt reports a rash which comes this time every year. Pt reports it is a red, smooth rash over bilateral shoulders, arms and chest. Pt also has some rash on left thigh. Rash started last week and continues to be itchy and spreads. Pt is offered apt in [facility] but unable to go at times available. Pt is advised to come to [facility] today and agrees. Home care is reviewed [...] accepted this outcome Please contact pt at [phone] (Ivorian speaker) documented in this encounter Plan of Treatment Not on file documented as of this encounter Visit Diagnoses Not on filedocumented in this encounter Additional Health Concerns Assessment Noted Time PHQ-9 Depression Total Score: 2 11/05/19 23 2:50 PM EST documented as of this encounter Care Teams Loom Blower Relationship Specialty Start Date End Date Danna Dinh MD [address] [place] [phone] PCP - General Family Medicine 12/21/20 documented as of this encounter
--- OUTSIDE RECORDS SUMMARY | 2025-09-08 20:11 | XMS_ITS | Encounter Summary ---
Author Organization [employer] Address [address] [place] [address] [address] [place] [address] Care Team Providers Care Mine Expert Name Role Phone Danna Dinh MD Primary Care Provider [phone] Encounter Details Date Type Department Care Team ([facility] st Contact Info) Description 10/21/2022 Orders Only [facility] MED & PEDS [address] [place], [place] [phone] Danna Dinh MD [address] [place], [place] [phone] Hyperglycemia due to type 1 diabetes mellitus [...] Hyperglycemia due to type 1 diabetes mellitus (HCC)- Primary documented in this encounter Care Teams Mine Expert Relationship Specialty Start Date End Date Danna Dinh MD [address] [place], [place] [phone] PCP - General Family Medicine 12/21/20 documented as of this encounter
--- OUTSIDE RECORDS SUMMARY | 2025-09-08 20:11 | XMS_ITS | Encounter Summary ---
Author Organization [employer] Address [address] [facility] [address] [place] [address] Care Team Providers Care Director Of Managed Care Name Role Phone Danna Dinh MD Primary Care Provider [phone] Reason for Visit * Reason Comments Med Refill Encounter Details Date Type Department Care Team ([facility] st Contact Info) Description 03/23/2025 Refill [facility] MED & PEDS [address] [place], [place] [phone] Danna Dinh MD [address] [place], [place] [phone] Social History Tobacco Use Types Packs/Day Years [...] of this encounter Care Teams Director Of Managed Care Relationship Specialty Start Date End Date Danna Dinh MD [address] [place] [id number] PCP - General Family Medicine 12/21/20 documented as of this encounter
--- OUTSIDE RECORDS SUMMARY | 2025-09-08 20:11 | XMS_ITS | Encounter Summary ---
Author Organization [employer] Address [address] [facility] [address] [place] [address] Care Team Providers Care Radio Repairer Name Role Phone Danna Dinh MD Primary Care Provider [phone] Reason for Visit * Reason Onset Date Comments Med Refill 04/19/2024 Encounter Details Date Type Department Care Team ([facility] st Contact Info) Description 04/19/2024 Telephone [facility] MED & PEDS [address] [place], [place] [phone] Danna Dinh MD [address] [place] [address] Med Refill Social History Tobacco Use Types [...] 30 MG tablet To be sent to: [facility]/pharmacy #[id number] [place] [address] - [address] [place] [address] documented in this encounter Plan of Treatment Not on file documented as of this encounter Visit Diagnoses Not on filedocumented in this encounter Additional Health Concerns Assessment Noted Time PHQ-9 Depression Total Score: 2 11/05/19 23 2:50 PM EST documented as of this encounter Care Teams Radio Repairer Relationship Specialty Start Date End Date Danna Dinh MD [address] [place] [address] PCP - General Family Medicine 12/21/20 documented as of this encounter
--- OUTSIDE RECORDS SUMMARY | 2025-09-08 20:11 | XMS_ITS | Encounter Summary ---
Author Organization [employer] Address [address] [facility] 7[address] [place] [address] Care Team Providers Care Systems Auditor Name Role Phone Danna Dinh MD Primary Care Provider [phone] Reason for Visit * Reason Onset Date Comments Nurse Triage 2025 Encounter Details Date Type Department Care Team ([facility] st Contact Info) Description 2025 Telephone [facility] MEDICINE [address] [place] [address] Danna Dinh MD [address] [place] [address] Nurse Triage Social History Tobacco Use Types [...] encounter Miscellaneous Notes * Telephone Encounter - Sherry Kat RN - 2025 4:00 PM EST Telephone call to pt via [id number]. This AM, pt noticed that the white of her right eye is red. Denies pain, itchiness, fever, vomiting, swelling, pus/discharge. States vision is normal. Denies new face products and states she does not wear makeup, denies wearing contact lenses. Marketing Performance Analyst advised pt to wait a few days and see if redness clears up. Discussed resting eye, washing around eye gently with warm water and mild soap, to avoid any irritants. Educated pt to call back or come to [facility] if develop any fever, swollen eye, pus, changes in vision, pain. Pt verbalized understanding, educated on [facility] nurse practitioner adult/[facility] hrs. Protocol Used: Eye - Redness (Adult) Protocol-Based Disposition: Home Care Positive Triage Question: * Red eye caused by sunscreen, smoke, smog, chlorine, food, soap or other mild irritant * All higher-acuity triage questions were negative Care Advice Discussed: * Reassurance and Education - Mild Eye Irritants * Wash Face * Reasons To Call Back - White, yellow or green pus (discharge) from eye occurs - Eyelashes stick together (matting) from pus - Redness lasts over 7 days - Blurred vision occurs - You become worse * Telephone Encounter - Chip Ochoa - 2025 2:19 PM EST Symptom: Eye Redness Without Pus or Discharge Outcome: Schedule an urgent appointment (within 4 hours) or talk to a nurse or provider soon Reason: Eyelid is red no swelling Please contact pt at [phone]. (Swedish Speaker) documented in this encounter Plan of Treatment Not on file documented as of this encounter Visit Diagnoses Not on filedocumented in this encounter Additional Health Concerns Assessment Noted Time PHQ-9 Depression Total Score: 4 05/08/20 25 1:13 PM EDT documented as of this encounter Care Teams Systems Auditor Relationship Specialty Start Date End Date Danna Dinh MD [address] [place] [id number] PCP - General Family Medicine 12/21/20 documented as of this encounter
[2025-09-08 20:12] VITALS: BP 131/83; PULSE 75; RESP 16; TEMP 36.4; O2SAT 99
--- NOTE | 2025-09-08 20:12 | PC.NURSE ---
patient discharged for primary rn
== END 2025-09-08 20:13 | disposition home or self-care (01) ==
PROVIDERS: Emergency Provider Emergency Medicine; PCP Family Medicine
DX: H11.31 Conjunctival hemorrhage, right eye (principal); Z79.899 Other long term (current) drug therapy; F17.210 Nicotine dependence, cigarettes, uncomplicated
CPT/HCPCS: 99282; 99283